=== PATIENT | female | born 2000 | race Caucasian/White ===

== ENCOUNTER 2023-11-10 16:46 | Outpatient (OUT) | payer OTHER, SELFPAY ==
[2023-11-10 17:31] LABS: HCG Quantitative <1 mIU/mL
== END 2023-11-10 16:47 | disposition home or self-care (01) ==
PROVIDERS: Visit Provider Obstetrics & Gynecology
DX: N92.6 Irregular menstruation, unspecified (principal)
CPT/HCPCS: 36415; 84702

== ENCOUNTER 2024-03-17 19:28 | Outpatient (REF) | payer OTHER, SELFPAY ==
--- OUTSIDE RECORDS SUMMARY | 2024-03-17 19:42 | XMS_ITS | CCD ---
Author Organization [facility] Care Team Providers Care Exhibit Display Representative Name Role Phone MCKEON, KALIN Unavailable Unavailable MCKEON, KALIN Unavailable Unavailable BRISTOL, ABDIFATAH E Unavailable Unavailable BRISTOL, ABDIFATAH E Unavailable Unavailable BRISTOL, ABDIFATAH E Unavailable Unavailable BRISTOL, ABDIFATAH E Unavailable Unavailable BRISTOL, ABDIFATAH E Unavailable Unavailable BRISTOL, ABDIFATAH E Unavailable Unavailable BRISTOL, ABDIFATAH E Unavailable Unavailable LILA GOMEZ Unavailable Unavailable BRISTOL, ABDIFATAH E Unavailable Unavailable BRISTOL, ABDIFATAH E Unavailable Unavailable BEST BERUMEN Unavailable Unavailable BRISTOL, ABDIFATAH E Unavailable Unavailable Asaad, Imad Unavailable MD Blanca Imyanelis Attending Provider DO Cathryn So Primary Care Provider Asaad, Imad Admitting [facility] Un[facility] Asaad, Imad Attending Unavailable [facility] Unavailable Asaad, Imad Attending Unavailable Asaad, Imad Admitting Unavailable YOSSI ., DR MEI Consulting Unavailable BRISTOL, DR GARDINER Primary Care Unavailable YOSSI ., DR MEI Admitting Unavailable YOSSI ., DR MEI Attending Unavailable JESS ., ADPHNE Attending Unavailable JESS ., DAPHNE Consulting Unavailable JESS ., DAPHNE Admitting Unavailable BRISTOL, DR GARDINER Primary Care Unavailable YOSSI ., DR MEI Consulting Unavailable YOSSI ., DR MEI Admitting Unavailable YOSSI ., DR MEI Attending Unavailable BRISTOL, DR GARDINER Primary Care Unavailable YOSSI ., DR MEI Admitting Unavailable YOSSI ., DR MEI Attending Unavailable BRISTOL, DR GARDINER Primary Care Unavailable BRISTOL, DR GARDINER Primary Care Unavailable YOSSI ., DR MEI Admitting Unavailable YOSSI ., DR MEI Attending Unavailable YOSSI ., DR MEI Consulting Unavailable BRISTOL, DR GARDINER Primary Care Unavailable YOSSI ., DR MEI Admitting Unavailable YOSSI ., DR MILLERY Attending Unavailable DAPHNE SANTIZO Admitting Unavailable DAPHNE SANTIZO Attending Unavailable CHANDU, DR GARDINER Primary Care Unavailable CHANDU, DR GARDINER Primary Care Unavailable DR HAMIDA HAGER Admitting Unavailable DR HAMIDA HAGER Attending Unavailable DR HAMIDA HAGER Consulting Unavailable Allergies Allergy Classification Reported Allergen(s) Allergy Type Date of Onset Reaction(s) Facility (3 sources) Codeine Drug Allergy 1 Unknown, Rash [facility] (2 sources) Penicillin Drug Allergy Unknown [facility] Other (4 sources) Penicillins; Translations: [Penicillins] Allergy to substance 4 [facility] (1 source) Codeine Drug Allergy 1 [facility] Repository (2 sources) Codeine Drug Allergy 4 [facility] Medications Current Medications Medication Drug Class(es) Dates Sig (Normalized) Sig (Original) buprenorphine 2 mg sublingual tablet (1 source) Partial Opioid Agonist Start: 12-15-2020 Buprenorphine Hcl (Subutex) 2 mg Tablet, Sublingual Active 4 MG SUBLINGUAL Twice daily December 15, 2020 1:00am metoclopramide 10 mg oral tablet (1 source) Dopamine-2 Receptor Antagonist Start: 12-16-2020 take 1 tablet by mouth every six hours Metoclopramide Hcl (Reglan) 10 mg tablet Active 10 MG PO Q6H 28 7 December 16, 2020 1:00am ondansetron 8 mg oral tablet (2 sources) Serotonin-3 Receptor Antagonist Start: 12-15-2020 End: 12-15-2020 take 8 mg by mouth twice daily Ondansetron Hcl Active 8 MG PO Twice daily December 15, 2020 1:00am valACYclovir 500 mg oral tablet (1 source) Herpesvirus Nucleoside Analog DNA Polymerase Inhibitor, Herpes Simplex Virus Nucleoside Analog DNA Polymerase Inhibitor, Herpes Zoster Virus Nucleoside Analog DNA Polymerase Inhibitor Start: 08-24-2017 take 500 mg by mouth once daily Valacyclovir Active 500 MG PO Daily August 24, 2017 12:00am Completed/Discontinued Medications Medication Drug Class(es) Dates Sig (Normalized) Sig (Original) hydrOXYzine hydrochloride 25 mg oral tablet (1 source) Antihistamine Start: 08-24-2017 End: 12-15-2020 take 25 mg by mouth three times daily Hydroxyzine Hcl Discontinued 25 MG PO Three times daily August 24, 2017 12:00am December 16, 2020 12:45am meclizine hydrochloride 12.5 mg oral tablet (1 source) Antiemetic Start: 08-24-2017 End: 12-15-2020 take 12.5 mg by mouth once daily Meclizine Discontinued 12.5 MG PO Daily August 24, 2017 12:00am December 16, 2020 12:45am 30/70 release 24 hr methylphenidate hydrochloride 40 mg extended release oral capsule (1 source) Central Nervous System Stimulant Start: 08-24-2017 End: 12-15-2020 take 40 mg by mouth once daily Methylphenidate Hcl Discontinued 40 MG PO Daily August 24, 2017 12:00am December 16, 2020 12:45am Tinnex (1 source) Start: 08-24-2017 End: 12-15-2020 take 1 tablet by mouth once daily Tinnex Discontinued 1 TAB PO Daily August 24, 2017 12:00am December 16, 2020 12:45am venlafaxine 37.5 mg oral tablet (1 source) Serotonin and Norepinephrine Reuptake Inhibitor Start: 08-24-2017 End: 12-15-2020 take 37.5 mg by mouth once daily Venlafaxine Discontinued 37.5 MG PO Daily August 24, 2017 12:00am December 16, 2020 12:45am Problems Active Problems Problem Classification Problem Date Documented Date Episodic/Chronic Headache, including migraine (2 sources) Cyclical vomiting, not intractable; Translations: [Migraine, unspecified, not intractable, without status migrainosus] Onset: 07-21-2017 Chronic Hepatitis (5 sources) Viral hepatitis C; Translations: [Unspecified viral hepatitis C without hepatic coma] Onset: 02-19-2023 Episodic Hepatitis (1 source) Hepatitis; Translations: [Chronic viral hepatitis C] Onset: 02-24-2023 Immunizations and screening for infectious disease (6 sources) Encounter for screening for human papillomavirus (HPV); Translations: [Encounter for screening for infections with a predominantly sexual mode of transmission] Onset: 04-08-2022 Episodic Mood disorders (2 sources) Major depressive disorder, single episode, unspecified; Translations: [Major depressive disorder, single episode, unspecified] Onset: 11-15-2017 Nausea and vomiting (6 sources) Nausea; Translations: [Nausea and vomiting] Onset: 07-18-2017 12-16-2020 Episodic Other liver diseases (1 source) Steatosis of liver; Translations: [Fatty (change of) liver, not elsewhere classified] Chronic Other liver diseases (1 source) Fatty (change of) liver, not elsewhere classified Chronic Other nutritional; endocrine; and metabolic disorders (2 sources) Obese class I; Translations: [Body mass index (BMI) 34.0-34.9, adult] Chronic Other nutritional; endocrine; and metabolic disorders (2 sources) Body mass index 30+ - obesity; Translations: [Body mass index (BMI) 35.0-35.9, adult] Chronic Other nutritional; endocrine; and metabolic disorders (2 sources) Weight loss; Translations: [Abnormal weight loss] Episodic Other screening for suspected conditions (not mental disorders or infectious disease) (4 sources) Encounter for screening for malignant neoplasm of cervix; Translations: [ENC SCREENING MALIG NEOPLASM CERV] Onset: 03-16-2023 Episodic Past or Other Problems Problem Classification Problem Date Documented Date Episodic/Chronic Abdominal pain (3 sources) Epigastric pain; Translations: [Epigastric pain] Onset: 07-18-2017 Episodic Other female genital disorders (5 sources) Other specified noninflammatory disorders of vagina; Translations: [OTH SPEC NONINFLAMMATORY D/O VAGINA] Onset: 04-11-2022 Episodic Other infections (1 source) Trichomoniasis, unspecified; Translations: [Trichomoniasis, unspecified] Onset: 09-18-2017 Episodic Other nutritional; endocrine; and metabolic disorders (3 sources) Abnormal weight loss; Translations: [Abnormal weight loss] Onset: 07-18-2017 Episodic Other upper respiratory infections (1 source) Streptococcal pharyngitis; Translations: [Streptococcal pharyngitis] Onset: 07-21-2017 Episodic Suicide and intentional self-inflicted injury (1 source) Suicidal ideations; Translations: [Suicidal ideations] Onset: 11-14-2017 Episodic Results Test Name Value Interpretation Reference Range Facility PAP ACOG PANEL 2: 21 to 29on 03-23-2023 . . Normal [facility] Comment on above: Performed By: #### [id number] #### [facility] [address] [place] [address] Dr. Vivian Govea Age Gdln ACOG Testing 21-29 Normal [facility] Comment on above: Performed By: #### [id number] #### [facility] [address] [place] [address] Dr. Vivian Govea DIAGNOSIS: Comment [facility] Comment on above: Result Comment: NEGA TIVE FOR INTRAEPITHELIAL LESION OR MALIGNANCY. Performed By: #### [id number] #### [facility] [address] [place] [address] Dr. Vivian Govea Methodology: Comment [facility] Comment on above: Result Comment: This liquid based ThinPrep(R) pap test was screened with the use of an image guided system. Performed By: #### 4 [id number] #### [facility] [address] [place] [address] Dr. Vivian Govea Note: Comment [facility] Comment on above: Result Comment: The Pap smear is a screening test designed to aid in the detection of premalignant and malignant conditions of the uterine cervix. It is not a diagnostic procedure and should not be used as the sole means of detecting cervical cancer. Both false-positive and false-negative reports do occur. . Performed By: #### 4 [id number] #### [facility] [address] [place] [address] Dr. Vivian Govea Performed by: Comment [facility] Comment on above: Result Comment: Jose L Izquierdo Auger Press Operator (ASCP) Performed By: #### 4 [id number] #### [facility] [address] [place] [address] Dr. Vivian Govea Reflex Criteria: Comment [facility] Comment on above: Result Comment: The HPV DNA reflex criteria were not met with this specimen result therefore, no HPV testing was performed. . Performed By: #### 4 [id number] #### [facility] [address] [place] [address] Dr. Vivian Govea Specimen adequacy: Comment [facility] Comment on above: Result Comment: Sati sfactory for evaluation. Endocervical and/or squamous metaplastic cells (endocervical component) are present. Performed By: #### 4 [id number] #### [facility] [address] [address] [address] Vivian Govea HCG ( test) Lesley montaño Ql (U)Ordered By: Alexis Rios on 02-24-2023 HCG ( test) Ql (U) Negative [facility] HCG,Urineon 02-24-2023 Beta HCG ( test) Ql (U) Negative Normal [facility] Comment on above: Result Comment: PERF ORMED BY: [place] [address] PATHOLOGIST SANITATION SUPERINTENDENT PROSPER BURGOS M.D. Performed By: #### U HCG #### [address] HCV genotyping ser/plas ampl ified probeOrdered By: Alexis Rios on 02-19-2023 HCV genotype OCTAVIO+probe Nom See comment . [facility] Comment on above: Test not performed. Unable to provide an HCV genotype forthis sample. The most common reason an HCV genotype cannotbe determined is due to a viral load of <1,000 IU/mL, ormore rarely, the presence of an untypable HCV genotype. HIV 1/O/2 Antigen/Antibodyon 02-19-2023 HIV Screen 4th Generation Non-Reactive Normal Non Reactive [facility] Comment on above: Order Comment: Reaso n for Exam Hepatitis C Result Comment: HIV Negative HIV-1/HIV-2 antibodies and HIV-1 p24 antigen were NOT detected. There is no laboratory evidence of HIV infection. Performed at: - [facility] [id number] Survey Director: Robin Mccormack PhD, Phone: [phone] PERFORMED BY: [place] [address] PATHOLOGIST SANITATION SUPERINTENDENT PROSPER BURGOS M.D. Performed By: #### H CV RNAQNT, HBSAG, HIV SCREEN, HBCAB, HAABT, HBSAB, HCV DUSTY #### [facility] , HIV 1 and HIV-2 antibody ass ay with HIV-1 p24 antigen detectionOrdered By: Alexis Rios on 02-19-2023 HIV 1+2 Ab+HIV1 p24 Ag IA Ql Non-Reactive Non Reactive [facility] Comment on above: HIV NegativeHIV-1/HI V-2 antibodies and HIV-1 p24 antigen were NOTdetected. There is no laboratory evidence of HIV infection.Performed at: [address] [id number] Director: Robin Mccormack PhD, Phone: [phone] Hep C Genotyping Non Reflexo n 02-19-2023 Hepatitis C Genotype Normal . [facility] Comment on above: Order Comment: Reaso n for Exam Hepatitis C Result Comment: Test not performed. Unable to provide an HCV genotype for this sample. The most common reason an HCV genotype cannot be determined is due to a viral load of <1,000 IU/mL, or more rarely, the presence of an untypable HCV genotype. Performed By: #### H CV RNAQNT, HBSAG, HIV SCREEN, HBCAB, HAABT, HBSAB, HCV DUSTY #### [facility] , Please Note: Normal . [facility] Comment on above: Order Comment: Reaso n for Exam Hepatitis C Result Comment: This test was developed and its performance characteristics determined by [facility]. It has not been cleared or approved by the U.S. Food and Drug Administration. The FDA has determined that such clearance or approval is not necessary. This test is used for clinical purposes. It should not be regarded as investigational or for research. Performed at: [address] [id number] Survey Director: Yue Hammond MD, Phone: [phone] PERFORMED BY: [place] [address] [place] [address] PATHOLOGIST SANITATION SUPERINTENDENT PROSPER BURGOS M.D. Performed By: #### H CV RNAQNT, HBSAG, HIV SCREEN, HBCAB, HAABT, HBSAB, HCV DUSTY #### [facility] , Hep C RT-PCR, Qnt (Non-Graph )on 02-19-2023 Hepatitis C Quantitation Not detected Normal . [facility] Comment on above: Order Comment: Reaso n for Exam Hepatitis C Performed By: #### H CV RNAQNT, HBSAG, HIV SCREEN, HBCAB, HAABT, HBSAB, HCV DUSTY #### [facility] , Test Information: Normal . [facility] Comment on above: Order Comment: Reaso n for Exam Hepatitis C Result Comment: The quantitative range of this assay is 15 IU/mL to 100 million IU/mL. Performed at: [facility] [id number] Survey Director: Yue Hammond MD, Phone: [phone] Performed By: #### H CV RNAQNT, HBSAG, HIV SCREEN, HBCAB, HAABT, HBSAB, HCV DUSTY #### [facility] , Hepatitis A Antibody Totalon 02-19-2023 Hepatitis A Antibody Total Negative Normal Negative [facility] Comment on above: Order Comment: Reaso n for Exam Hepatitis C Result Comment: Perf ormed at: - [facility] [address] [id number] Survey Director: Robin Mccormack PhD, Phone: [phone] Performed By: #### H CV RNAQNT, HBSAG, HIV SCREEN, HBCAB, HAABT, HBSAB, HCV DUSTY #### [facility] , Hepatitis A virus Ab [Presen ce] in Serum by ImmunoassayOrdered By: Alexis Rios on 02-19-2023 HAV Ab IA Ql (S) Negative Negative [facility] Comment on above: Performed at: [facility] [address] [id number] Director: Robin Mccormack PhD, Phone: [phone] Hepatitis B Core Antibodyon 02-19-2023 Hepatitis B Core Antibody Negative Normal Negative [facility] Comment on above: Order Comment: Reaso n for Exam Hepatitis C Performed By: #### H CV RNAQNT, HBSAG, HIV SCREEN, HBCAB, HAABT, HBSAB, HCV DUSTY #### [facility] , Hepatitis B Surface Antibody on 02-19-2023 Hepatitis B Surface Antibody Non-Reactive Normal . [facility] Comment on above: Order Comment: Reaso n for Exam Hepatitis C Result Comment: Non Reactive: Inconsistent with immunity, less than 10 mIU/mL Reactive: Consistent with immunity, greater than 9.9 mIU/mL Performed By: #### H CV RNAQNT, HBSAG, HIV SCREEN, HBCAB, HAABT, HBSAB, HCV DUSTY #### [facility] , Hepatitis B Surface Antigeno n 02-19-2023 HBsAg Screen Negative Normal Negative [facility] Comment on above: Order Comment: Reaso n for Exam Hepatitis C Performed By: #### H CV RNAQNT, HBSAG, HIV SCREEN, HBCAB, HAABT, HBSAB, HCV DUSTY #### [facility] , Hepatitis B virus surface Ag [Presence] in Serum or Plasma by ImmunoassayOrdered By: Imad Asayanelis on 02-19-2023 HBV surface Ag IA Ql Negative Negative [facility] Hepatitis C virus RNA [log u nits/volume] (viral load) in Serum or Plasma by OCTAVIO withOrdered By: Imad Asaad on 02-19-2023 HCV RNA OCTAVIO+probe [Log units/Vol] Not detected . [facility] No Panel InformationOrdered By: Imad Asaad on 02-19-2023 Hepatitis B Core Total Antibody Negative Negative [facility] Hepatitis C RNA (PCR) Interpret See comment . [facility] Comment on above: The quantitative ran ge of this assay is 15 IU/mL to 100million IU/mL.Performed at: [facility] General Blood[address] [id number] Director: Yue Hammond MD, Phone: [phone] Herpes Simplex Virus Note 2 See comment . [facility] Comment on above: This test was develo ped and its performance characteristicsdetermined by [facility]. It has not been cleared or approvedby the U.S. Food and Drug Administration.The FDA has determined that such clearance or approval isnot necessary. This test is used for clinical purposes. Itshould not be regarded as investigational or for research.Performed at: [facility] General [address] [id number] Director: Yue Hammond MD, Phone: [phone] Serum hepatitis B virus surf daisy antibody detectionOrdered By: Alexis Rios on 02-19-2023 HBV surface Ab Ql (S) Non-Reactive . [facility] Comment on above: Non Reactive: Incons istent with immunity, less than 10 mIU/mL Reactive: Consistent with immunity, greater than 9.9 mIU/mL US liveron 02-19-[address] [place] [address] Ultrasound Report Signed Patient: Sabra Wills MR#: [id number] : 2000 Acct:[id number] Age/Sex: 22 / F ADM Date: 02/19/23 Loc: Room: Type: [facility] Attending Dr: Alexis Rios MD Ordering Provider: Alexis Rios MD Date of Service: 02/19/23 US/US liver: Hepatitis C Copies to: Alexis Rios MD LIMITED ABDOMINAL ULTRASOUND: CLINICAL HISTORY: Hepatitis C. COMPARISON: None TECHNIQUE: Grayscale and color Doppler images of the right upper quadrant organs were obtained. FINDINGS: Pancreas: Not visualized. Liver: No focal mass or intrahepatic bile duct dilatation. Hepatopedal flow is seen within the portal vein. Gallbladder: Unremarkable. CBD: 2.8 mm. US/US liver IMPRESSION: NO FOCAL MASS OR ACUTE PROCESS.. Impression dictated by: Venkata Benavides Jr., DEderOEder02/19/2023 11:18 AM Dictation Location: [place] [address] Tech: Cate Ammy Transcribed By: BIN 02/19/23 1118 Dictated By: Venkata Benavides Jr, DO 02/19/23 1117 Signed By: 02/19/23 1118 Normal [facility] CHLAMYDIA/GONOCOCCUS OCTAVIO (SW AB/URINE/PAPon 12-22-2022 Chlamydia trachomatis, OCTAVIO Negative Normal Negative [facility] Comment on above: Performed By: #### C T/NGNA #### [facility] [address] [address] [address] Vivian Govea Neisseria gonorrhoeae, OCTAVIO Negative Normal Negative [facility] Comment on above: Performed By: #### C T/NGNA #### [facility] [address] [place] [address] Dr. Vivian Govea VAGINITIS/VAGINOSIS DNA PROB Lenard 12-20-2022 Kaylin species Negative Normal Negative [facility] Comment on above: Performed By: #### V AGINT #### [facility] [address] [place] [address] Dr. Vivian Govea Gardnerella vaginalis Positive Abnormal Negative [facility] Comment on above: Performed By: #### V AGINT #### [facility] [address] [place] [address] Dr. Vivian Govea Trichomonas vaginalis Negative Normal Negative [facility] Comment on above: Performed By: #### V AGINT #### [facility] [address] [place] [address] Dr. Vivian Govea CHLAMYDIA/GONOCOCCUS OCTAVIO (SW AB/URINE/PAPon 07-28-2022 Chlamydia trachomatis, OCTAVIO Negative Normal Negative [facility] Comment on above: Performed By: #### C T/NGNA #### [facility] [address] [place] [address] Dr. Vivian Govea Neisseria gonorrhoeae, OCTAVIO Negative Normal Negative [facility] Comment on above: Performed By: #### C T/NGNA #### [facility] [address] [place] [address] Dr. Vivian Govea VAGINITIS/VAGINOSIS DNA PROB Lenard 07-27-2022 Kaylin species Negative Normal Negative [facility] Comment on above: Performed By: #### V AGINT #### [facility] [address] [place] [address] Dr. Vivian Govea Gardnerella vaginalis Positive Abnormal Negative [facility] Comment on above: Performed By: #### V AGINT #### [facility] [address] [place] [address] Dr. Vivian Govea Trichomonas vaginalis Negative Normal Negative [facility] Comment on above: Performed By: #### V AGINT #### [facility] [address] [place] [address] Dr. Vivian Govea VAGINITIS/VAGINOSIS DNA PROB [place] 05-09-2022 Kaylin species Negative Normal Negative [facility] Comment on above: Performed By: #### V AGINT #### [facility] [address] [place] [address] Dr. Vivian Govea Gardnerella vaginalis Positive Abnormal Negative [facility] Comment on above: Performed By: #### V AGINT #### [facility] [address] [place] [address] Dr. Vivian Govea Trichomonas vaginalis Negative Normal Negative [facility] Comment on above: Performed By: #### V AGINT #### [facility] [address] [place] [address] Dr. Vivian Govea CHLAMYDIA/GONOCOCCUS OCTAVIO ( AB/URINE/PAPon 04-11-2022 Chlamydia trachomatis, OCTAVIO Negative Normal Negative [facility] Comment on above: Performed By: #### C T/NGNA #### [facility] [address] [place] [address] Dr. Vivian Govea Neisseria gonorrhoeae, OCTAVIO Negative Normal Negative [facility] Comment on above: Performed By: #### C T/NGNA #### [facility] [address] [place] [address] Dr. Vivian Govea VAGINITIS/VAGINOSIS DNA PROB Lenard 04-10-2022 Kaylin species Negative Normal Negative [facility] Comment on above: Performed By: #### V AGINT #### [facility] [address] [place] [address] Dr. Vivian Govea Gardnerella vaginalis Negative Normal Negative [facility] Comment on above: Performed By: #### V AGINT #### [facility] [address] [place] [address] Dr. Vivian Govea Trichomonas vaginalis Positive Abnormal Negative [facility] Comment on above: Performed By: #### V AGINT #### [facility] [address] [place] [address] Dr. Vivian Govea CBC with Diffon 11-16-2017 Abs. Basophil 0.10 k/uL Normal 0.0-0.2 [facility] Comment on above: Result Comment: Perf ormed at [facility] [address] [place] [address] Performed By: #### C DP, CP ####[facility] [place] [address] Abs.Neutrophil (Seg) 3.90 k/uL Normal 1.3-9.1 [facility] Comment on above: Performed By: #### C DP, CP ####[facility] [place] [address] Basophils/100 WBC Auto (Bld) 1 % Normal 0-2 [facility] Comment on above: Performed By: #### C DP, CP ####[facility] [place] [address] Eosinophils 0.30 10*3/uL Normal 0.0-0.4 [facility] Comment on above: Performed By: #### C DP, CP ####[facility] [place] [address] Eosinophils/100 leukocytes 4 % Normal 0-4 [facility] Comment on above: Performed By: #### C DP, CP ####[facility] [place] [address] Erythrocyte distribution width Auto Ratio (RBC) 13.9 % Normal 11.5-14.9 [facility] Comment on above: Performed By: #### C DP, CP ####[facility] [place] [address] Erythrocytes (RBC) 4.72 10*6/uL Normal 4.0-5.2 [facility] Comment on above: Performed By: #### C DP, CP ####[facility] [place] [address] Hematocrit (HCT) 39.5 % Normal 36-46 [facility] Comment on above: Performed By: #### C DP, CP ####[facility] [place] [address] Hemoglobin mass conc (Bld) 13.2 g/dL Normal 12.0-16.0 [facility] Comment on above: Performed By: #### C DP, CP ####[facility] [place] [address] Lymphocytes 1.90 10*3/uL Normal 1.2-5.2 [facility] Comment on above: Performed By: #### C DP, CP ####[facility] [place] [address] Lymphocytes/100 leukocytes 29 % Normal 25-45 [facility] Comment on above: Performed By: #### C DP, CP ####[facility] [place] [address]12 MCH 27.9 pg Normal 25-35 [facility] Comment on above: Performed By: #### C DP, CP ####[facility] [place] [address] MCHC mass conc (RBC) 33.4 g/dL Normal 31-37 [facility] Comment on above: Performed By: #### C DP, CP ####[facility] [place] [address] MCV 83.6 fL Normal 78-102 [facility] Comment on above: Performed By: #### C DP, CP ####[facility] [place] [address] Monocytes 0.60 10*3/uL Normal 0.1-1.3 [facility] Comment on above: Performed By: #### C DP, CP ####[facility] [place] [address] Monocytes/100 leukocytes 9 % High 2-8 [facility] Comment on above: Performed By: #### C DP, CP ####[facility] [place] [address] Neutrophil (Seg) 57 % Normal 34-64 [facility] Comment on above: Performed By: #### C DP, CP ####[facility] [place] [address] Platelet mean volume (PMV) 8.0 fL Normal 6.0-12.0 [facility] Comment on above: Performed By: #### C DP, CP ####[facility] [place] [address] Platelets 242 10*3/uL Normal 150-450 [facility] Comment on above: Performed By: #### C DP, CP ####[facility] [place] [address] WBC (Leukocytes) 6.8 10*3/uL Normal 4.5-13.5 [facility] Comment on above: Performed By: #### C DP, CP ####[facility] [place] [address] Auto Diff Performed NOT REPORTED Normal [facility] Comment on above: Performed By: #### C DP, CP ####[facility] [place] [address] Erythrocyte morphology NOT REPORTED Normal [facility] Comment on above: Performed By: #### C DP, CP ####[facility] [place] [address] Granulocytes/100 WBC (Bld) NOT REPORTED Normal 0.00-0.30 [facility] Comment on above: Performed By: #### C DP, CP ####[facility] [facility] [place] [address] Immature granulocytes #/vol (Bld) NOT REPORTED Normal 0 [facility] Comment on above: Performed By: #### C DP, CP ####[facility] [facility] [place] [address] Platelets NOT REPORTED Normal [facility] Comment on above: Performed By: #### C DP, CP ####[facility] [place] [address] WBC Morphology NOT REPORTED Normal [facility] Comment on above: Performed By: #### C DP, CP ####[place] [address] [facility] [place] [address] Comp Metabolic Profon 2016 (cont.) Normal [facility] Comment on above: Result Comment: Aver age GFR for <20 years old not available.Chronic Kidney Disease: <60 mL/min/1.73sq mKidney failure: <15 mL/min/1.73sq meGFR calculated using average adult body mass. Additional eGFR calculator available at:http://www.[employer].Undertone/multiple_crcl_2012.htmPerformed at [facility] [address] [place] [address] Performed By: #### C DP, CP ####[facility] [place] [address] Alanine aminotransferase (ALT) 44 U/L High 5-33 [facility] Comment on above: Performed By: #### C DP, CP ####[facility] [facility] [address] Albumin 3.9 g/dL Normal 3.5-5.2 [facility] Comment on above: Performed By: #### C DP, CP ####[facility] [place] [address] Alkaline Phos 68 U/L Normal 35-104 [facility] Comment on above: Performed By: #### C DP, CP ####[facility] [place] [address] Anion gap 11 mmol/L Normal 9-17 [facility] Comment on above: Performed By: #### C DP, CP ####[facility] [place] [address].[place] [address] Aspartate aminotransferase (AST) 37 U/L High <32 [facility] Comment on above: Performed By: #### C DP, CP ####[facility] [place] [address].[place] [address] Bilirubin Ql (U) 0.39 mg/dL Normal 0.3-1.2 [facility] Comment on above: Performed By: #### C DP, CP ####[facility] [place] [address].[place] [address] Calcium 9.1 mg/dL Normal 8.6-10.4 [facility] Comment on above: Performed By: #### C DP, CP ####[facility] [facility] [place] [address] Chloride 103 mmol/L Normal 98-107 [facility] Comment on above: Performed By: #### C DP, CP ####[facility] [place] [address] CO2 26 mmol/L Normal 20-31 [facility] Comment on above: Performed By: #### C DP, CP ####[facility] [place], [place] [address]e [place] [address] Creatinine 0.54 mg/dL Normal 0.50-0.90 [facility] Comment on above: Performed By: #### C DP, CP ####[facility] [place] [address].[place] [address] eGFR (non-black) Pediatric GFR requir es additional information. Refer to NKDEP website for Normal >60 [facility] Comment on above: Result Comment: calc ulator. Performed By: #### C DP, CP ####[facility] [place] [address] Glucose mass conc 91 mg/dL Normal 70-99 [facility] Comment on above: Performed By: #### C DP, CP ####[facility] [place] [address] Potassium molar conc 4.2 mmol/L Normal 3.7-5.3 [facility] Comment on above: Performed By: #### C DP, CP ####[facility] [place] [address].[place] [address] Protein 6.9 g/dL Normal 6.4-8.3 [facility] Comment on above: Performed By: #### C DP, CP ####[address] [place] [address] Sodium 140 mmol/L Normal 135-144 [facility] Comment on above: Performed By: #### C DP, CP ####[facility] [place] [address].[place] [address] Urea nitrogen 9 mg/dL Normal 6-20 [facility] Comment on above: Performed By: #### C DP, CP ####[address] [address] Albumin/Globulin Ratio NOT REPORTED Normal 1.0-2.5 [facility] Comment on above: Performed By: #### C DP, CP ####[place] [address] [facility] [address] BUN/CRE Ratio NOT REPORTED Normal 9-20 [facility] Comment on above: Performed By: #### C DP, CP ####[facility] [facility] [address] eGFR (non-black) NOT REPORTED Normal >60 [facility] Comment on above: Performed By: #### C DP, CP ####[facility] [facility] [place] [address] Staging: NOT REPORTED Normal [facility] Comment on above: Performed By: #### C DP, CP ####[facility] [facility] [place] [address] ED Noteon 11-15-2017 HIM IP Note OR Product Manager [employer] Normal [facility] HIM IP Note OR Product Manager Financial Services Normal [facility] Basic Metabolic Profon 11-14 (cont.) Normal [facility] Comment on above: Result Comment: Aver age GFR for <20 years old not available.Chronic Kidney Disease: <60 mL/min/1.73sq mKidney failure: <15 mL/min/1.73sq meGFR calculated using average adult body mass. Additional eGFR calculator available at:http://www.[employer].Undertone/multiple_crcl_2012.htm Performed By: #### C BC, DAPHNE, CP, LIP, TSH, HCG ####[address] , [place] [id number] Anion gap 11 mmol/L Normal 9-17 [facility] Comment on above: Performed By: #### C BC, DAPHNE, CP, LIP, TSH, HCG ####[address] , [place] [id number] BUN/CRE Ratio 18 Normal 9-20 [facility] Comment on above: Performed By: #### C BC, DAPHNE, CP, LIP, TSH, HCG ####[address] [place] [address] Calcium 9.2 mg/dL Normal 8.6-10.4 [facility] Comment on above: Performed By: #### C BC, DAPHNE, CP, LIP, TSH, HCG ####[address] [place] [address] Chloride 101 mmol/L Normal 98-107 [facility] Comment on above: Performed By: #### C BC, DAPHNE, CP, LIP, TSH, HCG ####[address] [place] [address] CO2 26 mmol/L Normal 20-31 [facility] Comment on above: Performed By: #### C BC, DAPHNE, CP, LIP, TSH, HCG ####[address] [place] [address] Creatinine 0.44 mg/dL Low 0.50-0.90 [facility] Comment on above: Performed By: #### C BC, DAPHNE, CP, LIP, TSH, HCG ####[address] [place] [address] eGFR (non-black) Pediatric GFR requir es additional information. Refer to NKDEP website for Normal >60 [facility] Comment on above: Result Comment: calc ulator. Performed By: #### C BC, DAPHNE, CP, LIP, TSH, HCG ####[address] [place] [address] Glucose mass conc 93 mg/dL Normal 70-99 [facility] Comment on above: Performed By: #### C BC, DAPHNE, CP, LIP, TSH, HCG ####[address] [place] [address] Potassium molar conc 4.2 mmol/L Normal 3.7-5.3 [facility] Comment on above: Performed By: #### C BC, DAPHNE, CP, LIP, TSH, HCG ####[address] [place] [address] Sodium 138 mmol/L Normal 135-144 [facility] Comment on above: Performed By: #### C BC, DAPHNE, CP, LIP, TSH, HCG ####[address] [place] [address] Staging: Normal [facility] Comment on above: Result Comment: Stag e 1: Some kidney damage normal GFRStage 2: Mild kidney damage GFR 60-89Stage 3: Moderate kidney damage GFR 30-59Stage 4: Severe kidney damage GFR 15-29Stage 5: Severe kidney damage GFR <15ESRD - chronic treatment by dialysis or transplantPerformed at [address] [place] [address] Performed By: #### C BC, DAPHNE, CP, LIP, TSH, HCG ####[address] [place] [address] Urea nitrogen 8 mg/dL Normal 6-20 [facility] Comment on above: Performed By: #### C BC, DAPHNE, CP, LIP, TSH, HCG ####[address] [place] [address] eGFR (non-black) NOT REPORTED Normal >60 [facility] Comment on above: Performed By: #### C BC, DAPHNE, CP, LIP, TSH, HCG ####[address] [place] [address] CBC with Diffon 11-14-2017 Abs. Basophil 0.10 k/uL Normal 0.0-0.2 [facility] Comment on above: Result Comment: Perf ormed at [address] [place] [address] Performed By: #### C BC, DAPHNE, CP, LIP, TSH, HCG ####[address] [place] [address] Abs.Neutrophil (Seg) 6.40 k/uL Normal 1.8-8.0 [facility] Comment on above: Performed By: #### C BC, DAPHNE, CP, LIP, TSH, HCG ####[address] , [place] [address] Basophils/100 WBC Auto (Bld) 1 % Normal 0-2 [facility] Comment on above: Performed By: #### C BC, DAPHNE, CP, LIP, TSH, HCG ####[address] , [facility] Eosinophils 0.30 10*3/uL Normal 0.0-0.4 [facility] Comment on above: Performed By: #### C BC, DAPHNE, CP, LIP, TSH, HCG ####[address] , [place] [address] Eosinophils/100 leukocytes 3 % Normal 0-8 [facility] Comment on above: Performed By: #### C BC, DAPHNE, CP, LIP, TSH, HCG ####[address] , [place] [address] Erythrocyte distribution width Auto Ratio (RBC) 14.2 % Normal 12.1-15.2 [facility] Comment on above: Performed By: #### C BC, DAPHNE, CP, LIP, TSH, HCG ####[address] , [facility] Erythrocytes (RBC) 4.88 10*6/uL Normal 4.0-5.2 [facility] Comment on above: Performed By: #### C BC, DAPHNE, CP, LIP, TSH, HCG ####[address] , [facility] Hematocrit (HCT) 40.5 % Normal 36-46 [facility] Comment on above: Performed By: #### C BC, DAPHNE, CP, LIP, TSH, HCG ####[address] , [facility] Hemoglobin mass conc (Bld) 13.3 g/dL Normal 12.0-16.0 [facility] Comment on above: Performed By: #### C BC, DAPHNE, CP, LIP, TSH, HCG ####[address] [place] [address] Lymphocytes 2.00 10*3/uL Normal 1.2-5.2 [facility] Comment on above: Performed By: #### C BC, DAPHNE, CP, LIP, TSH, HCG ####[address] , [facility] Lymphocytes/100 leukocytes 21 % Low 25-45 [facility] Comment on above: Performed By: #### C BC, DAPHNE, CP, LIP, TSH, HCG ####[address] , [facility] MCH 27.4 pg Normal 25-35 [facility] Comment on above: Performed By: #### C BC, DAPHNE, CP, LIP, TSH, HCG ####[address] , [facility] MCHC mass conc (RBC) 33.0 g/dL Normal 31-37 [facility] Comment on above: Performed By: #### C BC, DAPHNE, CP, LIP, TSH, HCG ####[address] [place] [address] MCV 83.0 fL Normal 78-102 [facility] Comment on above: Performed By: #### C BC, DAPHNE, CP, LIP, TSH, HCG ####[address] [place] [address] Monocytes 0.50 10*3/uL Normal 0.0-1.0 [facility] Comment on above: Performed By: #### C BC, DAPHNE, CP, LIP, TSH, HCG ####[address] [place] [address] Monocytes/100 leukocytes 6 % Normal 0-12 [facility] Comment on above: Performed By: #### C BC, DAPHNE, CP, LIP, TSH, HCG ####[address] [place] [address] Neutrophil (Seg) 69 % High 34-64 [facility] Comment on above: Performed By: #### C BC, DAPHNE, CP, LIP, TSH, HCG ####[address] [place] [address] Platelet mean volume (PMV) 8.1 fL Normal 6.0-12.0 [facility] Comment on above: Performed By: #### C BC, DAPHNE, CP, LIP, TSH, HCG ####[address] [place] [address] Platelets 270 10*3/uL Normal 140-450 [facility] Comment on above: Performed By: #### C BC, DAPHNE, CP, LIP, TSH, HCG ####[address] , [facility] WBC (Leukocytes) 9.3 10*3/uL Normal 4.5-13.5 [facility] Comment on above: Performed By: #### C BC, DAPHNE, CP, LIP, TSH, HCG ####[address] [place] [address] Auto Diff Performed NOT REPORTED Normal [facility] Comment on above: Performed By: #### C BC, DAPHNE, CP, LIP, TSH, HCG ####[address] , [facility] Erythrocyte morphology NOT REPORTED Normal [facility] Comment on above: Performed By: #### C BC, DAPHNE, CP, LIP, TSH, HCG ####[address] [place] [address] Granulocytes/100 WBC (Bld) NOT REPORTED Normal 0.00-0.30 [facility] Comment on above: Performed By: #### C BC, DAPHNE, CP, LIP, TSH, HCG ####[address] [place] [address] Immature granulocytes #/vol (Bld) NOT REPORTED Normal 0 [facility] Comment on above: Performed By: #### C BC, DAPHNE, CP, LIP, TSH, HCG ####[address] [place] [address] Platelets NOT REPORTED Normal [facility] Comment on above: Performed By: #### C BC, DAPHNE, CP, LIP, TSH, HCG ####[address] [place] [address] WBC Morphology NOT REPORTED Normal [facility] Comment on above: Performed By: #### C BC, DAPHNE, CP, LIP, TSH, HCG ####[address] [place] [address] Drug Scr, Abuse, Uron 2016 Amphetamine(s),Ur Negative Normal NEG [facility] Comment on above: Performed By: #### C BC, DAPHNE, CP, LIP, TSH, HCG ####[address] [place] [address] Barbiturate(s),Ur Negative Normal NEG [facility] Comment on above: Performed By: #### C BC, DAPHNE, CP, LIP, TSH, HCG ####[address] [place] [address] Base excess Negative Normal NEG [facility] Comment on above: Performed By: #### C BC, DAPHNE, CP, LIP, TSH, HCG ####[address] [place] [address] Benzodiazepine(s) Positive Abnormal NEG [facility] Comment on above: Performed By: #### C BC, DAPHNE, CP, LIP, TSH, HCG ####[address] [place] [address] Buprenorphrine, Ur Negative Normal NEG [facility] Comment on above: Result Comment: Perf ormed at [address] [place] [address] Performed By: #### C BC, DAPHNE, CP, LIP, TSH, HCG ####[address] [place] [address] Cannabinoid(s),Ur Positive Abnormal NEG [facility] Comment on above: Performed By: #### C BC, DAPHNE, CP, LIP, TSH, HCG ####[address] [place] [address] Methamphetamine, Ur Negative Normal NEG [facility] Comment on above: Performed By: #### C BC, DAPHNE, CP, LIP, TSH, HCG ####[address] [place] [address] Opiate(s), Ur Negative Normal NEG [facility] Comment on above: Performed By: #### C BC, DAPHNE, CP, LIP, TSH, HCG ####[address] [place] [address] Oxycodone, Urine Negative Normal [facility] Comment on above: Performed By: #### C BC, DAPHNE, CP, LIP, TSH, HCG ####[address] [place] [address] Phencyclidine, Ur Negative Normal NEG [facility] Comment on above: Performed By: #### C BC, DAPHNE, CP, LIP, TSH, HCG ####[address] [place] [address] Propoxyphene,Urine Negative Normal NEG [facility] Comment on above: Performed By: #### C BC, DAPHNE, CP, LIP, TSH, HCG ####[address] [place] [address] Urine, methadone presence Negative Normal NEG [facility] Comment on above: Performed By: #### C BC, DAPHNE, CP, LIP, TSH, HCG ####[address] [place], [place] [address] Urine, tricyclic antidepressants Negative Normal NEG [facility] Comment on above: Result Comment: Drug screen results are to be used for medical purposes only. All positive results are unconfirmed. Testing for employment or legal uses should be sent to a reference laboratory for confirmation. Performed By: #### C BC, DAPHNE, CP, LIP, TSH, HCG ####[address] [place], [place] [address] Interpretive Info NOT REPORTED Normal [facility] Comment on above: Performed By: #### C BC, DAPHNE, CP, LIP, TSH, HCG ####[address] [place] [address] MDMA, Urine NOT REPORTED Normal NEG [facility] Comment on above: Performed By: #### C BC, DAPHNE, CP, LIP, TSH, HCG ####[address] [place] [id number] ED Noteon 11-14-2017 HIM IP Note OR Product Manager Financial Services Normal [facility] HIM IP Note OR Product Manager Financial Services [facility] HIM IP Note OR Product Manager Financial Services Normal [facility] HIM IP Note OR Product Manager Financial Services [facility] ED Provider Noteon 7 HIM IP Note OR Product Manager Financial Services Normal [facility] HCG, ,Urineon 11-14 HCG.beta subunit ( test) Ql (U) Negative Normal NEG [facility] Comment on above: Result Comment: Perf ormed at [address] [place] [address] [phone] Performed By: #### C BC, DAPHNE, CP, LIP, TSH, HCG ####[address] [place] [address] Progress Noteon 11-14-2017 HIM IP Note OR Product Manager Financial Services [facility] Tox Scr, Bld, EDon 7 Toxic Tricyclic Sc,Bl Negative Normal NEG [facility] Comment on above: Result Comment: Perf ormed at [facility] [address] [facility], [place] [address] [phone] Performed By: #### C BC, DAPHNE, CP, LIP, TSH, HCG ####[address] [place] [address] Acetaminophen mass conc <10 Low 10-30 [facility] Comment on above: Result Comment: Perf ormed at [address] [place] [address] Performed By: #### C BC, DAPHNE, CP, LIP, TSH, HCG ####[address] [place] [address] Salicylate <1 Low 3-10 [facility] Comment on above: Result Comment: Perf ormed at [address] [place] [address] Performed By: #### C BC, DAPHNE, CP, LIP, TSH, HCG ####[address] [place] [address] Ethanol mg/dL Normal <10 [facility] Comment on above: Result Comment: Perf ormed at [address] [place] [address] Performed By: #### C BC, DAPHNE, CP, LIP, TSH, HCG ####[address] [place] [address] Ethanol percent <0.010 Normal [facility] Comment on above: Result Comment: Perf ormed at [address] [place] [address] Performed By: #### C BC, DAPHNE, CP, LIP, TSH, HCG ####[address] [place] [address] Group A Strep DNAon 09-20-20 17 Group A Strep DNA Specimen Description .THROAT SWAB Performed at [address] [place] [address] Special Requests NOT REPORTEDDirect Exam Negative: Specimen negative for Streptococcus pyogenes by DNA amplification. Performed at [address] [id number] [phone] Report Status FINAL 09/19/2017 [facility] Comment on above: Performed By: #### C BC, DAPHNE, CP, LIP, TSH, HCG ####[address] [place] [address] Cult,Urineon 09-19-2017 Cult,Urine Specimen Description .URINE Performed at [address] [place] [address] Special Requests .CLEAN CATCH URINE Performed at [address] [place] [address] Culture NO SIGNIFICANT GROWTH Performed at [address] [address] Report Status FINAL 09/19/2017 [facility] Comment on above: Performed By: #### C BC, DAPHNE, CP, LIP, TSH, HCG ####[address] [place] [address] CBC with Diffon 09-18-2017 Abs. Basophil 0.00 k/uL Normal 0.0-0.2 [facility] Comment on above: Result Comment: Perf ormed at [address] [place] [address] Performed By: #### C BC, DAPHNE, CP, LIP, TSH, HCG ####[address] [place] [address] Abs.Neutrophil (Seg) 10.00 k/uL High 1.8-8.0 [facility] Comment on above: Performed By: #### C BC, DAPHNE, CP, LIP, TSH, HCG ####[address] [place] [address] Basophils/100 WBC Auto (Bld) 0 % Normal [facility] Comment on above: Performed By: #### C BC, DAPHNE, CP, LIP, TSH, HCG ####[address] , [place] [address] Eosinophils 0.10 10*3/uL Normal 0.0-0.4 [facility] Comment on above: Performed By: #### C BC, DAPHNE, CP, LIP, TSH, HCG ####[address] , [place] [address] Eosinophils/100 leukocytes 1 % Normal [facility] Comment on above: Performed By: #### C BC, DAPHNE, CP, LIP, TSH, HCG ####[address] , [place] [address] Erythrocyte distribution width Auto Ratio (RBC) 13.2 % Normal 12.1-15.2 [facility] Comment on above: Performed By: #### C BC, DAPHNE, CP, LIP, TSH, HCG ####[address] , [place] [address] Erythrocytes (RBC) 4.86 10*6/uL Normal 4.0-5.2 [facility] Comment on above: Performed By: #### C BC, DAPHNE, CP, LIP, TSH, HCG ####[address] , [place] [address] Hematocrit (HCT) 39.7 % Normal 36-46 [facility] Comment on above: Performed By: #### C BC, DAPHNE, CP, LIP, TSH, HCG ####[address] , [place] [address] Hemoglobin mass conc (Bld) 13.2 g/dL Normal 12.0-16.0 [facility] Comment on above: Performed By: #### C BC, DAPHNE, CP, LIP, TSH, HCG ####[address] , [facility] Lymphocytes 1.60 10*3/uL Normal 1.2-5.2 [facility] Comment on above: Performed By: #### C BC, DAPHNE, CP, LIP, TSH, HCG ####[address] , [place] [address] Lymphocytes/100 leukocytes 13 % Normal [facility] Comment on above: Performed By: #### C BC, DAPHNE, CP, LIP, TSH, HCG ####[address] , [place] [address] MCH 27.2 pg Normal 25-35 [facility] Comment on above: Performed By: #### C BC, DAPHNE, CP, LIP, TSH, HCG ####[address] , [place] [address] MCHC mass conc (RBC) 33.3 g/dL Normal 31-37 [facility] Comment on above: Performed By: #### C BC, DAPHNE, CP, LIP, TSH, HCG ####[address] , [place] [address] MCV 81.7 fL Normal 78-102 [facility] Comment on above: Performed By: #### C BC, DAPHNE, CP, LIP, TSH, HCG ####[address] , [place] [facility] [facility] Monocytes 0.50 10*3/uL Normal 0.2-0.8 [facility] Comment on above: Performed By: #### C BC, DAPHNE, CP, LIP, TSH, HCG ####[address] , [place] [address] Monocytes/100 leukocytes 4 % Normal [facility] Comment on above: Performed By: #### C BC, DAPHNE, CP, LIP, TSH, HCG ####[address] , [facility] Neutrophil (Seg) 82 % Normal [facility] Comment on above: Performed By: #### C BC, DAPHNE, CP, LIP, TSH, HCG ####[address] [place] [address] Platelet mean volume (PMV) 8.2 fL Normal 6.0-12.0 [facility] Comment on above: Performed By: #### C BC, DAPHNE, CP, LIP, TSH, HCG ####[address] [place] [address] Platelets 302 10*3/uL Normal 140-450 [facility] Comment on above: Performed By: #### C BC, DAPHNE, CP, LIP, TSH, HCG ####[address] , [facility] WBC (Leukocytes) 12.2 10*3/uL Normal 4.5-13.5 [facility] Comment on above: Performed By: #### C BC, DAPHNE, CP, LIP, TSH, HCG ####[address] , [facility] Auto Diff Performed NOT REPORTED Normal [facility] Comment on above: Performed By: #### C BC, DAPHNE, CP, LIP, TSH, HCG ####[address] [place] [address] Erythrocyte morphology NOT REPORTED Normal [facility] Comment on above: Performed By: #### C BC, DAPHNE, CP, LIP, TSH, HCG ####[address] , [facility] Granulocytes/100 WBC (Bld) NOT REPORTED Normal 0.00-0.30 [facility] Comment on above: Performed By: #### C BC, DAPHNE, CP, LIP, TSH, HCG ####[address] [place] [address] Immature granulocytes #/vol (Bld) NOT REPORTED Normal 0 [facility] Comment on above: Performed By: #### C BC, DAPHNE, CP, LIP, TSH, HCG ####[address] [place] [address] Platelets NOT REPORTED Normal [facility] Comment on above: Performed By: #### C BC, DAPHNE, CP, LIP, TSH, HCG ####[address] [place] [address] WBC Morphology NOT REPORTED Normal [facility] Comment on above: Performed By: #### C BC, DAPHNE, CP, LIP, TSH, HCG ####[facility] [place] [address] CT HEAD WO CONTRASTon 2016 CT HEAD WO CONTRAST FINAL REPORTEXAM: CT HEAD WO CONTRASTHISTORY: headache TECHNIQUE: Spiral multi slice image acquisition through the brain without contrast. PRIORS: None.FINDINGS: The ventricles and sulci are normal in size and symmetric. The basal cisterns are maintained. The cerebellum and brainstem are unremarkable. There is no evidence of intracranial hemorrhage, mass or edema. The calvarium is intact. The orbital structures are maintained. The paranasal sinuses are free of fluid. IMPRESSION: Impression: Normal noncontrast CT scan of the brain. No evidence of intracranial hemorrhage, mass or edema. Interpreted by:KRISTY Kiserigned by:Jaime Noble MD09/18/17Final result Normal [facility] Comp Metabolic Profon 2016 (cont.) Normal [facility] Comment on above: Result Comment: Aver age GFR for <20 years old not available.Chronic Kidney Disease: <60 mL/min/1.73sq mKidney failure: <15 mL/min/1.73sq meGFR calculated using average adult body mass. Additional eGFR calculator available at:http://[email or web address].com/multiple_crcl_2012.htm Performed By: #### C BC, DAPHNE, CP, LIP, TSH, HCG ####[address] [place] [address] Alanine aminotransferase (ALT) 11 U/L Normal 5-33 [facility] Comment on above: Performed By: #### C BC, DAPHNE, CP, LIP, TSH, HCG ####[address] [place] [address] Albumin 4.1 g/dL Normal 3.5-5.2 [facility] Comment on above: Performed By: #### C BC, DAPHNE, CP, LIP, TSH, HCG ####[address] [place] [address] Albumin/Globulin Ratio 1.1 {ratio} Normal 1.0-2.5 [facility] Comment on above: Performed By: #### C BC, DAPHNE, CP, LIP, TSH, HCG ####[address] [place] [address] Alkaline Phos 87 U/L Normal 35-104 [facility] Comment on above: Performed By: #### C BC, DAPHNE, CP, LIP, TSH, HCG ####[address] [place] [address] Anion gap 11 mmol/L Normal 9-17 [facility] Comment on above: Performed By: #### C BC, DAPHNE, CP, LIP, TSH, HCG ####[address] [place] [address] Aspartate aminotransferase (AST) 13 U/L Normal <32 [facility] Comment on above: Performed By: #### C BC, DAPHNE, CP, LIP, TSH, HCG ####[address] [place] [address] Bilirubin Ql (U) 0.26 mg/dL Low 0.3-1.2 [facility] Comment on above: Performed By: #### C BC, ADPHNE, CP, LIP, TSH, HCG ####[address] [place] [address] BUN/CRE Ratio 10 Normal 9-20 [facility] Comment on above: Performed By: #### C BC, DAPHNE, CP, LIP, TSH, HCG ####[address] [place] [address] Calcium 9.1 mg/dL Normal 8.6-10.4 [facility] Comment on above: Performed By: #### C BC, DAPHNE, CP, LIP, TSH, HCG ####[address] [place] [address] Chloride 101 mmol/L Normal 98-107 [facility] Comment on above: Performed By: #### C BC, DAPHNE, CP, LIP, TSH, HCG ####[address] [place] [address] CO2 27 mmol/L Normal 20-31 [facility] Comment on above: Performed By: #### C BC, DAPHNE, CP, LIP, TSH, HCG ####[address] [place] [address] Creatinine 0.58 mg/dL Normal 0.50-0.90 [facility] Comment on above: Performed By: #### C BC, DAPHNE, CP, LIP, TSH, HCG ####[address] [place] [address] eGFR (non-black) Pediatric GFR requir es additional information. Refer to NKDEP website for Normal >60 [facility] Comment on above: Result Comment: calc ulator. Performed By: #### C BC, DAPHNE, CP, LIP, TSH, HCG ####[address] [place] [address] Glucose mass conc 83 mg/dL Normal 70-99 [facility] Comment on above: Performed By: #### C BC, DAPHNE, CP, LIP, TSH, HCG ####[address] [place] [address] Potassium molar conc 3.7 mmol/L Normal 3.7-5.3 [facility] Comment on above: Performed By: #### C BC, DAPHNE, CP, LIP, TSH, HCG ####[address] [place] [address] Protein 7.8 g/dL Normal 6.4-8.3 [facility] Comment on above: Performed By: #### C BC, DAPHNE, CP, LIP, TSH, HCG ####[address] [place] [address] Sodium 139 mmol/L Normal 135-144 [facility] Comment on above: Performed By: #### C BC, DAPHNE, CP, LIP, TSH, HCG ####[address] [place] [address] Staging: Normal [facility] Comment on above: Result Comment: Stag e 1: Some kidney damage normal GFRStage 2: Mild kidney damage GFR 60-89Stage 3: Moderate kidney damage GFR 30-59Stage 4: Severe kidney damage GFR 15-29Stage 5: Severe kidney damage GFR <15ESRD - chronic treatment by dialysis or transplantPerformed at [address] [place] [address] Performed By: #### C BC, DAPHNE, CP, LIP, TSH, HCG ####[address] [place] [address] Urea nitrogen 6 mg/dL Normal 6-20 [facility] Comment on above: Performed By: #### C BC, DAPHNE, CP, LIP, TSH, HCG ####[address] [place] [address] eGFR (non-black) NOT REPORTED Normal >60 [facility] Comment on above: Performed By: #### C BC, DAPHNE, CP, LIP, TSH, HCG ####[address] [place] [address] Drug Scr, Abuse, Uron 2016 Amphetamine(s),Ur Negative Normal NEG [facility] Comment on above: Performed By: #### C BC, DAPHNE, CP, LIP, TSH, HCG ####[address] [place] [address] Barbiturate(s),Ur Negative Normal NEG [facility] Comment on above: Performed By: #### C BC, DAPHNE, CP, LIP, TSH, HCG ####[address] [place] [address] Base excess Negative Normal [facility] Comment on above: Performed By: #### C BC, DAPHNE, CP, LIP, TSH, HCG ####[address] [place] [address] Benzodiazepine(s) Negative Normal NEG [facility] Comment on above: Performed By: #### C BC, DAPHNE, CP, LIP, TSH, HCG ####[address] [place] [address] Buprenorphrine, Ur Negative Normal [facility] Comment on above: Result Comment: Perf ormed at [address] [place] [address] Performed By: #### C BC, DAPHNE, CP, LIP, TSH, HCG ####[address] [place] [address] Cannabinoid(s),Ur Positive Abnormal [facility] Comment on above: Performed By: #### C BC, DAPHNE, CP, LIP, TSH, HCG ####[address] [place] [address] Methamphetamine, Ur Negative Normal [facility] Comment on above: Performed By: #### C BC, DAPHNE, CP, LIP, TSH, HCG ####[address] [place] [address] Opiate(s), Ur Negative Normal [facility] Comment on above: Performed By: #### C BC, DAPHNE, CP, LIP, TSH, HCG ####[address] [place] [address] Oxycodone, Urine Negative Normal NEG [facility] Comment on above: Performed By: #### C BC, DAPHNE, CP, LIP, TSH, HCG ####[address] [place] [address] Phencyclidine, Ur Negative Normal NEG [facility] Comment on above: Performed By: #### C BC, DAPHNE, CP, LIP, TSH, HCG ####[address] [place] [address] Propoxyphene,Urine Negative Normal NEG [facility] Comment on above: Performed By: #### C BC, DAPHNE, CP, LIP, TSH, HCG ####[address] [place] [address] Urine, methadone presence Negative [facility] Comment on above: Performed By: #### C BC, DAPHNE, CP, LIP, TSH, HCG ####[address] [place] [address] Urine, tricyclic antidepressants Negative Normal [facility] Comment on above: Result Comment: Drug screen results are to be used for medical purposes only. All positive results are unconfirmed. Testing for employment or legal uses should be sent to a reference laboratory for confirmation. Performed By: #### C BC, DAPHNE, CP, LIP, TSH, HCG ####[address] [place] [address] Interpretive Info NOT REPORTED Normal [facility] Comment on above: Performed By: #### C BC, DAPHNE, CP, LIP, TSH, HCG ####[address] [place] [address] MDMA, Urine NOT REPORTED Normal NEG [facility] Comment on above: Performed By: #### C BC, DAPHNE, CP, LIP, TSH, HCG ####[address] [place] [address] ED Provider Noteon 7 HIM IP Note OR Product Manager Financial Services Normal [facility] Flu A/B Ag Detectionon 09-18 Flu A/B Ag Detection Specimen Descriptio n .NASOPHARYNGEAL SWABSpecial Requests NOT REPORTEDDirect Exam Presumptive negative for the presence of Influenza A and Influenza B antigen. PCR confirmation of negative results is recommended, since the antigen present in the specimen may be below the detection limit of the test. Performed at [address] [place] [address] Report Status FINAL 09/18/2017 Normal [facility] Comment on above: Performed By: #### C BC, DAPHNE, CP, LIP, TSH, HCG ####[address] [place] [address] HCG, ,Urineon 09-18 HCG.beta subunit ( test) Ql (U) Negative Normal NEG [facility] Comment on above: Result Comment: Perf ormed at [address] [place] [address] Performed By: #### C BC, DAPHNE, CP, LIP, TSH, HCG ####[address] [place] [address] Mononucleosis Screenon 09-18 Monocytes Negative Normal NEG [facility] Comment on above: Result Comment: Perf ormed at [address] [place] [address] Performed By: #### C BC, DAPHNE, CP, LIP, TSH, HCG ####[address] [place] [address] Strep Gr A Direct Agon 09-18 Rapid strep test Specimen Description .THROATSpecial Requests NOT REPORTEDDirect Exam Rapid Strep A negative. A negative Rapid Group A Strep Screen result does not rule out the possibility of Group A Streptococci in the specimen. A Group A strep DNA test will be performed. Performed at [address] [place] [address] Report Status FINAL 09/18/2017 [facility] Comment on above: Performed By: #### C BC, DAPHNE, CP, LIP, TSH, HCG ####[address] [place] [address] UA w/Reflex Cultureon 2016 Acetaminophen mass conc Negative Normal NEG [facility] Comment on above: Performed By: #### C BC, DAPHNE, CP, LIP, TSH, HCG ####[address] [place] [address] Bilirubin (direct) Negative Normal NEG [facility] Comment on above: Performed By: #### C BC, DAPHNE, CP, LIP, TSH, HCG ####[address] [place] [address] Hemoglobin mass conc (Bld) Negative Normal NEG [facility] Comment on above: Performed By: #### C BC, DAPHNE, CP, LIP, TSH, HCG ####[address] [place] [address] Nitrite,Ur Negative Normal NEG [facility] Comment on above: Performed By: #### C BC, DAPHNE, CP, LIP, TSH, HCG ####[address] [place] [address] Turbidity CLEAR Normal CLEAR [facility] Comment on above: Performed By: #### C BC, DAPHNE, CP, LIP, TSH, HCG ####[address] [place] [address] Urine, color YELLOW Normal YEL [facility] Comment on above: Performed By: #### C BC, DAPHNE, CP, LIP, TSH, HCG ####[address] [place] [address] Urine, glucose presence Negative Normal NEG [facility] Comment on above: Performed By: #### C BC, DAPHNE, CP, LIP, TSH, HCG ####[address] [place] [address] Urine, leukocyte esterase presence TRACE Abnormal NEG [facility] Comment on above: Result Comment: Perf ormed at [address] [place] [address] Performed By: #### C BC, DAPHNE, CP, LIP, TSH, HCG ####[address] [place] [address] Urine, pH 8.0 [pH] Normal 5.0-9.0 [facility] Comment on above: Performed By: #### C BC, DAPHNE, CP, LIP, TSH, HCG ####[address] [place] [address] Urine, protein presence Negative Normal NEG [facility] Comment on above: Performed By: #### C BC, DAPHNE, CP, LIP, TSH, HCG ####[address] [place] [address] Urine, specific gravity 1.015 Normal 1.010-1.020 [facility] Comment on above: Performed By: #### C BC, DAPHNE, CP, LIP, TSH, HCG ####[address] [place] [address] Urobilinogen,Ur Normal Normal NORM [facility] Comment on above: Performed By: #### C BC, DAPHNE, CP, LIP, TSH, HCG ####[address] [place] [address] Comment NOT REPORTED Normal [facility] Comment on above: Performed By: #### C BC, DAPHNE, CP, LIP, TSH, HCG ####[address] [place] [address] Urinalysis,Microon 7 ----- Normal [facility] Comment on above: Performed By: #### C BC, DAPHNE, CP, LIP, TSH, HCG ####[address] [place] [address] Mucus Strands 1+ Abnormal NONE [facility] Comment on above: Performed By: #### C BC, DAPHNE, CP, LIP, TSH, HCG ####[address] [place] [address] Trichomonas PRESENCE NOTED Abnormal [facility] Comment on above: Result Comment: Perf ormed at [address] [place] [address] Performed By: #### C BC, DAPHNE, CP, LIP, TSH, HCG ####[address] [place] [address] Urine WBC's 2 TO 5 Normal 0-5 [facility] Comment on above: Performed By: #### C BC, DAPHNE, CP, LIP, TSH, HCG ####[address] [place] [address] Urine, bacteria in sediment TRACE Abnormal NONE [facility] Comment on above: Performed By: #### C BC, DAPHNE, CP, LIP, TSH, HCG ####[address] [place] [address] Urine, epithelial cells in sediment 10 TO 20 Normal 0-25 [facility] Comment on above: Performed By: #### C BC, DAPHNE, CP, LIP, TSH, HCG ####[address] [place] [address] Urine, erythrocytes 0 TO 2 Normal 0-2 [facility] Comment on above: Performed By: #### C BC, DAPHNE, CP, LIP, TSH, HCG ####[address] [place] [address] Epithelial, Renal NOT REPORTED Normal 0 [facility] Comment on above: Performed By: #### C BC, DAPHNE, CP, LIP, TSH, HCG ####[address] [place] [address] Other Observations NOT REPORTED Normal NREQ [facility] Comment on above: Performed By: #### C BC, DAPHNE, CP, LIP, TSH, HCG ####[address] [place] [address] Urine, amorphous sediment presence in sediment NOT REPORTED Normal NONE [facility] Comment on above: Performed By: #### C BC, DAPHNE, CP, LIP, TSH, HCG ####[address] [place] [address] Urine, casts in sediment NOT REPORTED Normal [facility] Comment on above: Performed By: #### C BC, DAPHNE, CP, LIP, TSH, HCG ####[address] [place] [address] Urine, crystals in sediment NOT REPORTED Normal NONE [facility] Comment on above: Performed By: #### C BC, DAPHNE, CP, LIP, TSH, HCG ####[address] [place] [address] Urine, yeast presence in sediment NOT REPORTED Normal NONE [facility] Comment on above: Performed By: #### C BC, DAPHNE, CP, LIP, TSH, HCG ####[address] [place] [address] CT ABDOMEN PELVIS WO IV CONT ROHITTon 07-21-2017 CT ABDOMEN PELVIS WO IV CONTRAST REPORT: CT scans of the abdomen and pelvis without contrast, with coronal and sagittal reformatted images.INDICATION: Generalized abdominal pain; patient states she has been having trouble keeping anything down for the past few months; nausea.FINDINGS: The visualized lung bases show slight, hazy interstitial change on the left. There is faint suggestion of a punctate nonobstructing calculus within the upper pole of the right kidney on axial image 52 and sagittal reformatted image 86, however, this is not certain. The liver, spleen, gallbladder, pancreas, kidneys, and adrenal glands are otherwise normal. There are no enlarged retroperitoneal lymph nodes. The aorta is not dilated.The terminal ileum is distended, or dilated, with fluid, measuring up to 2.5 cm in diameter. The stomach and remainder of the small intestine appear normal. The central portion of the transverse colon is collapsed, making it difficult to evaluate for possible wall thickening. There is a prominent fecal residue within most of the colon. There are is no pericolic inflammatory change. I do not identify the appendix with certainty. There is no free air or free fluid within the abdomen. The bony structures appear to be intact. The pelvic structures are unremarkable.Final report electronically signed by Sean Mayfield on 07/21/2017 3:47 PMIMPRESSION: DISTENTION, OR DILATATION OF A FLUID-FILLED TERMINAL ILEUM WITHOUT APPARENT WALL THICKENING. COLLAPSED TRANSVERSE COLON, DIFFICULT TO EVALUATE FOR WALL THICKNESS. NO PERICOLIC INFLAMMATORY CHANGES. NO OBSTRUCTIVE UROPATHY.Interpreted by:KRISTY Cervantesigned by:Sean Mayfield MD07/21/17Final result Normal [facility] ED Provider Noteon 7 HIM IP Note OR Product Manager Financial Services Normal [facility] Flu A/B Ag Detectionon 07-21 Flu A/B Ag Detection Specimen Descriptio n .NARESSpecial Requests NOT REPORTEDDirect Exam Presumptive negative for the presence of Influenza A and Influenza B antigen. PCR confirmation of negative results is recommended, since the antigen present in the specimen may be below the detection limit of the test. Performed at [address] [place], [place] [id number] [phone] Report Status FINAL 07/21/2017 [facility] Comment on above: Performed By: #### F LUAD ####[address] [place] [address] Strep Gr A Direct Agon 07-21 Strep Gr A Direct Ag Specimen Descriptio n .THROATSpecial Requests NOT REPORTEDDirect Exam POSITIVE for Group A Streptococci Performed at [address] [place], [place] [address] [phone] Report Status FINAL 07/21/2017 [facility] Comment on above: Performed By: #### S GPA ####[address] [place] [address] Urinalysis w/ Microon 2016 ----- Normal [facility] Comment on above: Performed By: #### U AMIC ####[address] [place] [address] Acetaminophen mass conc Negative Normal NEG [facility] Comment on above: Performed By: #### U AMIC ####[address] [place] [address] Bilirubin (direct) Negative Normal NEG [facility] Comment on above: Performed By: #### U AMIC ####[address] [place] [address] Hemoglobin mass conc (Bld) Negative Normal NEG [facility] Comment on above: Performed By: #### U AMIC ####[address] [place] [address] Mucus Strands 3+ Abnormal NONE [facility] Comment on above: Result Comment: Perf ormed at [address] [place] [address] Performed By: #### U AMIC ####[address] [place] [address] Nitrite,Ur Negative Normal NEG [facility] Comment on above: Performed By: #### U AMIC ####[address] [place] [address] Turbidity CLEAR Normal CLEAR [facility] Comment on above: Performed By: #### U AMIC ####[address] [place] [address] Urine WBC's 0 TO 2 Normal 0-5 [facility] Comment on above: Performed By: #### U AMIC ####[address] [place] [address] Urine, bacteria in sediment 1+ Abnormal NONE [facility] Comment on above: Performed By: #### U AMIC ####[address] [place] [address] Urine, color YELLOW Normal YEL [facility] Comment on above: Performed By: #### U AMIC ####[address] [place] [address] Urine, epithelial cells in sediment 5 TO 10 Normal 0-25 [facility] Comment on above: Performed By: #### U AMIC ####[address] [place] [address] Urine, erythrocytes 0 TO 2 Normal 0-2 [facility] Comment on above: Performed By: #### U AMIC ####[address] [place] [address] Urine, glucose presence Negative Normal NEG [facility] Comment on above: Performed By: #### U AMIC ####[address] [place] [address] Urine, leukocyte esterase presence Negative Normal NEG [facility] Comment on above: Performed By: #### U AMIC ####[address] [place] [address] Urine, pH 6.0 [pH] Normal 5.0-9.0 [facility] Comment on above: Performed By: #### U AMIC ####[address] [place] [address] Urine, protein presence TRACE Abnormal NEG [facility] Comment on above: Performed By: #### U AMIC ####[address] [place] [address] Urine, specific gravity 1.025 High 1.010-1.020 [facility] Comment on above: Performed By: #### U AMIC ####[address] [place] [address] Urobilinogen,Ur Normal Normal NORM [facility] Comment on above: Performed By: #### U AMIC ####[address] [place] [address] Comment NOT REPORTED Normal [facility] Comment on above: Performed By: #### U AMIC ####[address] [place] [address] Epithelial, Renal NOT REPORTED Normal 0 [facility] Comment on above: Performed By: #### U AMIC ####[address] [place] [address] Other Observations NOT REPORTED Normal NREQ [facility] Comment on above: Performed By: #### U AMIC ####[address] [place] [address] Trichomonas NOT REPORTED Normal NONE [facility] Comment on above: Performed By: #### U AMIC ####[address] [place] [address] Urine, amorphous sediment presence in sediment NOT REPORTED Normal NONE [facility] Comment on above: Performed By: #### U AMIC ####[address] [place] [address] Urine, casts in sediment NOT REPORTED Normal [facility] Comment on above: Performed By: #### U AMIC ####[address] [place] [address] Urine, crystals in sediment NOT REPORTED Normal NONE [facility] Comment on above: Performed By: #### U AMIC ####[address] [place] [address] Urine, yeast presence in sediment NOT REPORTED Normal NONE [facility] Comment on above: Performed By: #### U AMIC ####[address] [place] [address] Amylaseon 07-18-2017 Amylase 44 U/L Normal 28-100 [facility] Comment on above: Result Comment: Perf ormed at [facility] [address] [place] [address] Performed By: #### C BC, DAPHNE, CP, LIP, TSH, HCG ####[address] [place] [address] CBCon 07-18-2017 Erythrocyte distribution width Auto Ratio (RBC) 14.5 % Normal 12.1-15.2 [facility] Comment on above: Performed By: #### C BC, DAPHNE, CP, LIP, TSH, HCG ####[address] [place] [address] Erythrocytes (RBC) 4.79 10*6/uL Normal 4.0-5.2 [facility] Comment on above: Performed By: #### C BC, DAPHNE, CP, LIP, TSH, HCG ####[address] , [facility] Hematocrit (HCT) 39.1 % Normal 36-46 [facility] Comment on above: Performed By: #### C BC, DAPHNE, CP, LIP, TSH, HCG ####[address] , [facility] Hemoglobin mass conc (Bld) 12.9 g/dL Normal 12.0-16.0 [facility] Comment on above: Performed By: #### C BC, DAPHNE, CP, LIP, TSH, HCG ####[address] [place] [address] MCH 26.9 pg Normal 25-35 [facility] Comment on above: Performed By: #### C BC, DAPHNE, CP, LIP, TSH, HCG ####[address] [place] [address] MCHC mass conc (RBC) 32.9 g/dL Normal 31-37 [facility] Comment on above: Performed By: #### C BC, DAPHNE, CP, LIP, TSH, HCG ####[address] [place] [address] MCV 81.6 fL Normal 78-102 [facility] Comment on above: Performed By: #### C BC, DAPHNE, CP, LIP, TSH, HCG ####[address] [place] [address] Platelet mean volume (PMV) 8.3 fL Normal 6.0-12.0 [facility] Comment on above: Result Comment: Perf ormed at [address] [place] [address] Performed By: #### C BC, DAPHNE, CP, LIP, TSH, HCG ####[address] [place] [address] Platelets 268 10*3/uL Normal 140-450 [facility] Comment on above: Performed By: #### C BC, DAPHNE, CP, LIP, TSH, HCG ####[address] [place] [address] WBC (Leukocytes) 7.7 10*3/uL Normal 4.5-13.5 [facility] Comment on above: Performed By: #### C BC, DAPHNE, CP, LIP, TSH, HCG ####[address] [place] [address] Comp Metabolic Profon 2016 (cont.) Normal [facility] Comment on above: Result Comment: Aver age GFR for <20 years old not available.Chronic Kidney Disease: <60 mL/min/1.73sq mKidney failure: <15 mL/min/1.73sq meGFR calculated using average adult body mass. Additional eGFR calculator available at:http://[email or web address].Undertone/multiple_crcl_2012.htm Performed By: #### C BC, DAPHNE, CP, LIP, TSH, HCG ####[address] [place] [address] Alanine aminotransferase (ALT) 20 U/L Normal 5-33 [facility] Comment on above: Performed By: #### C BC, DAPHNE, CP, LIP, TSH, HCG ####[address] [place] [address] Albumin 4.1 g/dL Normal 3.5-5.2 [facility] Comment on above: Performed By: #### C BC, DAPHNE, CP, LIP, TSH, HCG ####[address] [place] [address] Albumin/Globulin Ratio 1.3 {ratio} Normal 1.0-2.5 [facility] Comment on above: Performed By: #### C BC, DAPHNE, CP, LIP, TSH, HCG ####[address] [place] [address] Alkaline Phos 71 U/L Normal 35-104 [facility] Comment on above: Performed By: #### C BC, DAPHNE, CP, LIP, TSH, HCG ####[address] [place] [address] Anion gap 12 mmol/L Normal 9-17 [facility] Comment on above: Performed By: #### C BC, DAPHNE, CP, LIP, TSH, HCG ####[address] [place] [address] Aspartate aminotransferase (AST) 20 U/L Normal <32 [facility] Comment on above: Performed By: #### C BC, DAPHNE, CP, LIP, TSH, HCG ####[address] [place] [address] Bilirubin Ql (U) 0.43 mg/dL Normal 0.3-1.2 [facility] Comment on above: Performed By: #### C BC, DAPHNE, CP, LIP, TSH, HCG ####[address] [place] [address] BUN/CRE Ratio 15 Normal 9-20 [facility] Comment on above: Performed By: #### C BC, DAPHNE, CP, LIP, TSH, HCG ####[address] [place] [address] Calcium 9.1 mg/dL Normal 8.6-10.4 [facility] Comment on above: Performed By: #### C BC, DAPHNE, CP, LIP, TSH, HCG ####[address] [place] [address] Chloride 106 mmol/L Normal 98-107 [facility] Comment on above: Performed By: #### C BC, DAPHNE, CP, LIP, TSH, HCG ####[address] [place] [address] CO2 24 mmol/L Normal 20-31 [facility] Comment on above: Performed By: #### C BC, DAPHNE, CP, LIP, TSH, HCG ####[address] [place] [address] Creatinine 0.53 mg/dL Normal 0.50-0.90 [facility] Comment on above: Performed By: #### C BC, DAPHNE, CP, LIP, TSH, HCG ####[address] , [facility] CREST83 eGFR (non-black) Pediatric GFR requir es additional information. Refer to NKDEP website for Normal >60 [facility] Comment on above: Result Comment: calc ulator. Performed By: #### C BC, DAPHNE, CP, LIP, TSH, HCG ####[address] [place] [address] Glucose mass conc 95 mg/dL Normal 70-99 [facility] Comment on above: Performed By: #### C BC, DAPHNE, CP, LIP, TSH, HCG ####[address] [place] [address] Potassium molar conc 4.3 mmol/L Normal 3.7-5.3 [facility] Comment on above: Performed By: #### C BC, DAPHNE, CP, LIP, TSH, HCG ####[address] [place] [address] Protein 7.3 g/dL Normal 6.4-8.3 [facility] Comment on above: Performed By: #### C BC, DAPHNE, CP, LIP, TSH, HCG ####[address] [place] [address] Sodium 142 mmol/L Normal 135-144 [facility] Comment on above: Performed By: #### C BC, DAPHNE, CP, LIP, TSH, HCG ####[address] [place] [address] Staging: Normal [facility] Comment on above: Result Comment: Stag e 1: Some kidney damage normal GFRStage 2: Mild kidney damage GFR 60-89Stage 3: Moderate kidney damage GFR 30-59Stage 4: Severe kidney damage GFR 15-29Stage 5: Severe kidney damage GFR <15ESRD - chronic treatment by dialysis or transplantPerformed at [address] [place] [address] Performed By: #### C BC, DAPHNE, CP, LIP, TSH, HCG ####[address] [place] [address] Urea nitrogen 8 mg/dL Normal 6-20 [facility] Comment on above: Performed By: #### C BC, DAPHNE, CP, LIP, TSH, HCG ####[address] [place] [address] eGFR (non-black) NOT REPORTED Normal >60 [facility] Comment on above: Performed By: #### C BC, DAPHNE, CP, LIP, TSH, HCG ####[address] [place] [address] HCG Screen, Bloodon 07-18- 17 HCG Qn Negative Normal NEG [facility] Comment on above: Result Comment: Perf ormed at [address] [place] [address] Performed By: #### C BC, DAPHNE, CP, LIP, TSH, HCG ####[address] , [place] [id number] Lipaseon 07-18-2017 Lipase 31 U/L Normal 13-60 [facility] Comment on above: Result Comment: Perf ormed at [address] [place] [id number] ([phone] Performed By: #### C BC, DAPHNE, CP, LIP, TSH, HCG ####[address] [place] [address] Thyroid Stim. Horm.on 2016 Thyroid stimulating hormone (TSH) 1.32 m[IU]/L Normal 0.30-5.00 [facility] Comment on above: Result Comment: Perf ormed at [address] [place] [address] ([phone] Performed By: #### C BC, DAPHNE, CP, LIP, TSH, HCG ####[address] [id number] XR ACUTE ABD SERIES CHEST 1 VWon 07-18-2017 Weight FINAL REPORTEXAM: XR ACUTE ABD SERIES CHEST 1 VWHISTORY: Loss of weight lower abdominal pain TECHNIQUE: Three way abdomen PRIORS: None.FINDINGS: Abdominal bowel gas pattern is nonobstructive but nonspecific. No free air. No suspicious calcifications are identified. Abundant fecal material noted primarily on the right. Lungs are clear. Heart and mediastinum unremarkable.IMPRESSION: Impression: Nonspecific three-way abdomen. Interpreted by:KRISTY Inmanigned by:Xochilt Louie MD07/18/17Final result Normal [facility] Vital Signs Date Time Vital Sign Value Performing Clinician Facility 04-23-2023 10:00-0400 Body height 162.56 cm [facility] Other 04-23-2023 10:00-0400 Body mass index (BMI) [Ratio] 38.27 kg/m2 [facility] Other 04-23-2023 10:00-0400 Body weight 101.15 kg Imad Asaad Other [facility] Other 04-23-2023 10:00-0400 Diastolic blood pressure 62 mm[Hg] Imad Asaad Other [facility] Other 04-23-2023 10:00-0400 Systolic blood pressure 105 mm[Hg] Imad Asaad Other [facility] Other 02-05-2023 10:00-0400 Body height 162.56 cm Imad Asaad Other [facility] Other 02-05-2023 10:00-0400 Body mass index (BMI) [Ratio] 40.85 kg/m2 Imad Asaad Other [facility] Other 02-05-2023 10:00-0400 Body weight 107.96 kg Imad Asaad Other [facility] Other 02-05-2023 10:00-0400 Diastolic blood pressure 61 mm[Hg] Imad Asaad Other [facility] Other 02-05-2023 10:00-0400 Systolic blood pressure 104 mm[Hg] [facility] Asa[facility] Other [facility] Other Encounters Encounter Date Encounter Type Care Provider Facility Start: 04-23-2023 End: 04-23-2023 ambulatory Imad Asaad Other [facility] Other Start: 04-23-2023 Office outpatient visit 15 minutes Imad Asaad [facility] Start: 03-16-2023 End: 03-16-[address] HAMIDA SY . Facility:[facility] Start: 02-24-2023 End: 02-24-2023 ambulatory Imad Asaad Facility:[facility] Start: 02-24-2023 End: 02-24-2023 ambulatory DO Cathryn Rumschlag Work Phone: [facility] Work Phone: Start: 02-24-2023 End: 02-24-2023 Patient encounter procedure DO Cathryn Rumschlag Work Phone: [facility] Work Phone: Start: 02-19-2023 End: 02-19-2023 ambulatory Cathryn Rumschlag Facility:[facility] Start: 02-19-2023 End: 02-19-2023 Patient encounter procedure DO Cathryn Rumschlag Work Phone: [facility] [place] Work Phone: Start: 02-05-2023 End: 02-05-2023 ambulatory Imad Asaad Other [facility] Other Start: 02-05-2023 Office outpatient ne w 45 minutes Imad Asaad [facility] Start: 01-13-2023 ambulatory DAPHNE MERCADO . Facility:[facility] Start: 12-18-2022 End: 12-18-2022 ambulatory DAPHNE MERCADO . Facility:[facility] Start: 09-18-[address] HAMIDA SY . Facili ty:[facility] Start: 07-24-2022 End: 07-24-[address] HAMIDA SY . Facility:[facility] Start: 05-07-2022 End: 05-07-[address] ABDIFATAH SCHOFIELD Facility:[facility] Start: 04-08-2022 End: 04-08-[address] ABDIFATAH SCHOFIELD Facility:[facility] Start: 11-15-2017 End: 11-17-2017 Evaluation and management of inpatient KALIN MCKEON [facility] Start: 11-14-2017 End: 11-15-2017 [facility] Start: 09-18-2017 End: 09-18-2017 Emergency department patient visit ABDIFATAH Sellers [facility] Start: 07-21-2017 End: 07-21-2017 Emergency department patient visit LILA GOMEZ [facility] Start: 07-18-2017 End: 07-19-2017 Ambulatory ABDIFATAH Sellers [facility] Procedures Date Procedure Procedure Detail Performing Clinician Start: 02-24-2023 Ultrasound elastogra phy of liver DO Cathryn Rumschlag Work Phone: Start: 02-19-2023 Ultrasonography of liver DO Cathryn Rumschlag Work Phone: Start: 11-17-2017 DISCHARGE PATIENT FRANKY ALFAROPTA Start: 11-16-2017 CBC WITH AUTO DIFFERENTIAL KALIN MCKEON Start: 11-16-2017 COMPREHENSIVE METABO LIC PANEL KALIN MCKEON Start: 11-15-2017 DIET GENERAL KALIN PROOFER [facility]ACK [facility] WH[facility] Start: 11-15-2017 FULL CODE KALIN PROOFER BLACK AND WHITE Start: 11-15-2017 IP CONSULT TO HISTOR Y AND PHYSICAL KALIN MCKEON Start: 11-15-2017 PATIENT STATUS (DIRECT) KALIN MCKEON Start: 11-15-2017 VITAL SIGNS KALIN PROOFER BLACK AND WHITE Start: 11-14-2017 , URINE ABDIFATAH CHANDU Start: 11-14-2017 URINE DRUG SCREEN REAGA N CHANDU Start: 11-14-2017 CBC WITH AUTO DIFFERENTIAL ABDIFATAH CHANDU Start: 11-14-2017 BASIC METABOLIC PANEL R PETRONA CHANDU Start: 11-14-2017 TOX SCR, BLD, ED ABDIFATAH CHANDU Start: 11-14-2017 ED NURSING COMMUNICATION ABDIFATAH CHANDU Start: 11-14-2017 SUICIDE PRECAUTIONS JORGITO KATI CHANDU Start: 09-18-2017 STREP SCREEN GROUP A THROAT ABDIFATAH CHANDU Start: 09-18-2017 STREP A DNA PROBE, AMPLIFICATION ABDIFATAH CHANDU Start: 09-18-2017 Ct head/brain w/o co ntrast material ABDIFATAH CHANDU Start: 09-18-2017 CBC WITH AUTO DIFFERENTIAL ABDIFATAH CHANDU Start: 09-18-2017 COMPREHENSIVE METABO LIC PANEL ABDIFATAH CHANDU Start: 09-18-2017 MONONUCLEOSIS SCREEN RE AGAN CHANDU Start: 09-18-2017 RAPID INFLUENZA A/B ANTIGENS ABDIFATAH CHANDU Start: 09-18-2017 Microscopic urinalysis ABDIFATAH CHANDU Start: 09-18-2017 , URINE ABDIFATAH CHANDU Start: 09-18-2017 UA W/REFLEX CULTURE JORGITO KATI CHANDU Start: 09-18-2017 URINE CULTURE ABDIFATAH BR ISTOL Start: 09-18-2017 URINE DRUG SCREEN REAGA N CHANDU Start: 07-21-2017 Ct abdomen & pelvis w/o contrast material ABDIFATAH BRISTOL Start: 07-21-2017 URINALYSIS WITH MICROSCOPIC ABDIFATAH BRISTOL Start: 07-21-2017 RAPID INFLUENZA A/B ANTIGENS ABDIFATAH BRISTOL Start: 07-21-2017 STREP SCREEN GROUP A THROAT ABDIFATAH CHANDU Start: 07-18-2017 Radex abd compl aqt abd w/s/e/d views 1 view ch ABDIFATAH BRISTOL Start: 07-18-2017 AMYLASE ABDIFATAH BRYANNA STOL Start: 07-18-2017 CBC ABDIFATAH BRYANNA STOL Start: 07-18-2017 COMPREHENSIVE METABO LIC PANEL ABDIFATAH BRISTOL Start: 07-18-2017 HCG, SERUM, QUALITATIVE ABDIFATAH BRISTOL Start: 07-18-2017 LIPASE ABDIFATAH BRYANNA STOL Start: 07-18-2017 TSH WITHOUT REFLEX REAG AN CHANDU Plan of Treatment Date Care Activity Detail Author Start: 02-24-2023 [facility] Payers Date Payer Category Payer Medicaid [id number] 1998 Unknown [id number] 2.16.84 [id number] 1998 Unknown [id number] 2.16.84 [id number] 1998 Unknown [id number] 2.16.84 [id number] 1998 Unknown [id number] 2.16.84 [id number] 1998 Unknown [id number] 2.16.84 [id number] 1998 Unknown [id number] 2.16.84 [id number] 1998 Unknown [id number] 2.16.84 [id number] 1998 Unknown [id number] 2.16.84 [id number] 1959 Self-pay [id number] 1959 Unknown [id number] 1959 Unknown [id number] Unknown [id number] 2.16.8 [id number] Unknown [id number] 2.16.8 [id number] Social History Date Type Detail Facility Unknown if ever smoked [facility] Other Sex Assigned At Sex Assigned At [facility] [employer] [facility] Other Start: 12-16-2020 Tobacco smoking status NHIS Ex-smoker (finding) [facility] Start: 2000 Sex Assigned At Female F [facility] Goals Date Patient Goal Desired Activity /State Evaluation note 04-23-2023 Note Date & Type Note Facility 04-23-2023 Evaluation note Encounter Date Diagnosis Assessment Notes Apr, Hepatitis C (ICD-10 - B19.20) Apr, Fatty liver (ICD-10 - K76.0) FATTY LIVER WAS FOUND ON FIBROSCAN. PATIENT WAS EDUCATED ON WEIGHT LOSS & LIFESTYLE CHANGES. FOLLOW UP NEEDED . [facility] Other Evaluation note 02-05-2023 Note Date & Type Note Facility 02-05-2023 Evaluation note Encounter Date Diagnosis Assessment Notes Jan, Hepatitis C (ICD-10 - B19.20) Labs, ultrasound, and fibroscan as indicated above. Start approval process for [employer]. [facility] Other Evaluation note Note Date & Type Note Facility Evaluation note No assessment information availa ble [facility] Work Phone: History general Narrative - Reported Note Date & Type Note Facility History general Narrative - Reported Type Medical History pre diabetes Medical History anxiety/depression Medical History herpes [facility] Other History general Narrative - Reported Note Date & Type Note Facility History general Narrative - Reported Type Medical History pre diabetes Medical History anxiety/depression Medical History herpes Surgical History NONE Hospitalization History [facility] Other Summary Purpose Family History No Family History Records FoundNo Family History Records FoundNo Family History Records FoundNo Family History Records Found Advance Directives Advance Directive Response Recorded Date/ Time Advance Directives No July 11:45am Chief Complaint and Reason for Visit Chief Complaint Hepatitis C Hepatitis C Additional Source Comments INFORMATION SOURCE (unrecogn ized section and content) DATE CREATED AUTHOR 05/18/2018 [facility] DATE CREATED AUTHOR AUTHOR'S ORGANIZ ATION 05/18/2018 [facility] DATE CREATED AUTHOR AUTHOR'S ORGANIZ ATION 03/07/2023 [facility] DATE CREATED AUTHOR AUTHOR'S ORGANIZ ATION 03/24/2023 [facility] REASON FOR VISIT (unrecogniz ed section and content) PATIENT IS HERE AT THE REQUE [facility] [place] SO FOR HEP CPATIENT IS HERE FOR FOLLOW UP US/FIBROSCAN/AND LABS Care Teams (unrecognized sec tion and content) Team Status: Active Member Role Status Dates Cathryn So DO Primary Care Provider Active Team Status: Inactive Member Role Status Dates Alexis Rios MD Attending Provider Active Cathryn So DO Primary Care Provider Active FOR RECORDS PERTAINING TO PATIENTS WHO ARE OR HAVE BEEN ENROLLED IN A CHEMICAL DEPENDENCY/SUBSTANCEABUSE PROGRAM, SOME INFORMATION MAY BE OMITTED. This clinical summary was aggregated from multiple sources. Caution should be exercised in using it in the provision of clinical care. This summary normalizes information from multiple sources, and as a consequence, information in this document may materially change the coding, format and clinical context of patient data. In addition, data may be omitted in some cases. CLINICAL DECISIONS SHOULD BE BASED ON THE PRIMARY CLINICAL RECORDS. [employer] provides no warranty or guarantee of the accuracy or completeness of information in this document.
[2024-03-23 18:08] LABS: Age Gdln ACOG Testing Note (.); IGP, rfx Aptima HPV ASCU Note (.)
== END 2024-03-17 19:29 | disposition home or self-care (01) ==
LOC: LAB 19:28
PROVIDERS: Visit Provider Obstetrics & Gynecology
DX: Z01.419 Encounter for gynecological examination (general) (routine) without abnormal findings (principal)
CPT/HCPCS: G0145

== ENCOUNTER 2024-07-19 10:16 | Outpatient (OUT) | payer OTHER, SELFPAY ==
--- OUTSIDE RECORDS SUMMARY | 2024-07-19 10:37 | XMS_ITS | CCD ---
Author Organization [facility] Care Team Providers Care Coremaker Apprentice Name Role Phone MCKEON, KALIN Unavailable Unavailable MCKEON, KALIN Unavailable Unavailable BRISTOL, ABDIFATAH E Unavailable Unavailable BRISTOL, ABDIFATAH E Unavailable Unavailable BRISTOL, ABDIFATAH E Unavailable Unavailable BRISTOL, ABDIFATAH E Unavailable Unavailable BRISTOL, ABDIFATAH E Unavailable Unavailable BRISTOL, ABDIFATAH E Unavailable Unavailable BRISTOL, ABDIFATAH E Unavailable Unavailable LILA GOMEZ Unavailable Unavailable BRISTOL, ABDIFATAH E Unavailable Unavailable BRISTOL, ABDIFATAH E Unavailable Unavailable BOBBEST HELMS A Unavailable Unavailable BRISTOL, ABDIFATAH E Unavailable Unavailable Asaad, Imad Unavailable MD Blanca Imad Attending Provider DO Cathryn So Primary Care Provider Asaad, Imad Admitting Unavailable Cathryn So Primary Care Unavailable Asaad, Imad Attending Unavailable Cathryn So Primary Care Unavailable Asaad, Imad Attending Unavailable Asaad, Imad Admitting Unavailable YOSSI ., DR MEI Consulting Unavailable CHANDU, DR GARDINER Primary Care Unavailable YOSSI ., DR MEI Admitting Unavailable YOSSI ., DR MEI Attending Unavailable JESS ., DAPHNE Attending Unavailable JESS ., DAPHNE Consulting Unavailable [...] YOSSI ., DR MEI Attending Unavailable JESS .DAPHNE Admitting Unavailable JESS .DAPHNE Attending Unavailable CHANDU, DR GARDINER Primary Care Unavailable CHANDU, DR GARDINER Primary Care Unavailable YOSSI ., DR MEI Admitting Unavailable YOSSI ., DR MEI Attending Unavailable YOSSI ., DR MEI Consulting Unavailable HAMIDA SY Attending Unavailable HAMIDA SY Attending Unavailable Allergies Allergy Classification Reported Allergen(s) Allergy Type Date of Onset Reaction(s) Facility (3 sources) Codeine Drug Allergy 1 Unknown, Rash [facility] (2 sources) Penicillin Drug Allergy Unknown [employer] Other (4 sources) Penicillins; Translations: [Penicillins] Allergy to substance 4 [facility] (1 source) Codeine Drug Allergy 1 [facility] Repository (2 sources) Codeine Drug Allergy 4 [facility] Repository Medications Current Medications Medication Drug Class(es) [...] 21 to 29on 03-23-2023 . . Normal [facility] Comment on above: Performed By: #### [id number] #### [facility] [address] [place] [address] Dr. Vivian Govea Age Gdln ACOG Testing 19- [facility] Comment on above: Performed By: #### 4 [id number] #### [facility] [address] [place] [address] Dr. Vivian Govea DIAGNOSIS: Comment [facility] Comment on above: Result Comment: NEGA TIVE FOR INTRAEPITHELIAL LESION OR MALIGNANCY. Performed By: #### 4 [id number] #### [facility] [address] [place] [address] Dr. Vivian Govea Methodology: Comment [facility] Comment on above: Result Comment: This liquid based ThinPrep(R) pap test was screened with the use of an image guided system. Performed By: #### 4 [id number] #### [facility] [address] [place] [address] Dr. Vivian Govea Note: Comment [facility] Comment on above: Result Comment: The Pap smear is a screening test designed to aid in the detection of premalignant and malignant conditions of the uterine cervix. It is not a diagnostic procedure and should not be used as the sole means of detecting cervical cancer. Both false-positive and false-negative reports do occur. . Performed By: #### 4 [id number] #### [facility] [address] [place] [address] Dr. Vivian Govea Performed by: Comment [facility] Comment on above: Result Comment: Jose L Izquierdo Lumber Stacker Operator (ASCP) Performed By: #### 4 [id number] #### [facility] [address] [place] [address] Dr. Vivian Govea Reflex Criteria: Comment [facility] Comment on above: Result Comment: The HPV DNA reflex criteria were not met with this specimen result therefore, no HPV testing was performed. . Performed By: #### 4 [id number] #### [facility] [address] [place] [address] Dr. Vivain Govea Specimen adequacy: Comment [facility] Comment on above: Result Comment: Sati sfactory for evaluation. Endocervical and/or squamous metaplastic cells (endocervical component) are present. Performed By: #### 4 [id number] #### [facility] [address] [address] [address] Vivian Govea HCG ( test) IAdanyel d Ql (U)Ordered By: Imyanelis Asaad on 02-24-2023 HCG ( test) Ql (U) Negative [facility] HCG,Urineon 02-24-2023 Beta HCG ( test) Ql (U) Negative Normal [facility] Comment on above: Result Comment: PERF ORMED BY: [place] [address] PATHOLOGIST SIGN MAKER PROSPER BURGOS M.D. Performed By: #### U HCG #### [address] HCV genotyping ser/plas ampl ified probeOrdered By: Alexis Rios on 02-19-2023 HCV genotype OCTAVIO+probe Nom See comment . [facility] Comment on above: Test not performed. Unable to provide an HCV genotype forthis sample. The most common reason an HCV genotype cannotbe determined is due to a viral load of <1,000 IU/mL, ormore rarely, the presence of an untypable HCV genotype. HIV 1/O/2 Antigen/Antibodyon 02-19-2023 HIV Screen 4th Generation Non-Reactive Normal Non Reactive [facility] Comment on above: Order Comment: Reaso n for Exam Hepatitis C Result Comment: HIV Negative HIV-1/HIV-2 antibodies and HIV-1 p24 antigen were NOT detected. There is no laboratory evidence of HIV infection. Performed at: - [facility] [id number] Depositing Machine Operator: Robin Mccormack PhD, Phone: [phone] PERFORMED BY: [place] [address] PATHOLOGIST SIGN MAKER PROSPER BURGOS M.D. Performed By: #### H CV RNAQNT, HBSAG, HIV SCREEN, HBCAB, HAABT, HBSAB, HCV DUSTY #### [facility] , HIV 1 and HIV-2 antibody ass ay with HIV-1 p24 antigen detectionOrdered By: Alexis Rios on 02-19-2023 HIV 1+2 Ab+HIV1 p24 Ag IA Ql Non-Reactive Non Reactive [facility] Comment on above: HIV NegativeHIV-1/HI V-2 antibodies and HIV-1 p24 antigen were NOTdetected. There is no laboratory evidence of HIV infection.Performed at: [address] [id number] Director: Robin Mccormack PhD, Phone: [phone] Hep C Genotyping Non Reflexo n 02-19-2023 Hepatitis C Genotype Normal . [facility] Comment on above: Order Comment: Reaso [...] #### [facility] , Please Note: Normal . [facility] Comment on above: Order Comment: Reaso n for Exam Hepatitis C Result Comment: This test was developed and its performance characteristics determined by [facility]. It has not been cleared or approved by the U.S. Food and Drug Administration. The FDA has determined that such clearance or approval is not necessary. This test is used for clinical purposes. It should not be regarded as investigational or for research. Performed at: [facility] [id number] Depositing Machine Operator: Yue Hammond MD, Phone: [phone] PERFORMED BY: [place] [address] [place] [address] PATHOLOGIST SIGN MAKER PROSPER BURGOS M.D. Performed By: #### H CV RNAQNT, HBSAG, HIV SCREEN, HBCAB, HAABT, HBSAB, HCV DUSTY #### [facility] , Hep C RT-PCR, Qnt (Non-Graph )on 02-19-2023 Hepatitis C Quantitation Not detected Normal . [facility] Comment on above: Order Comment: Reaso n for Exam Hepatitis C Performed By: #### H CV RNAQNT, HBSAG, HIV SCREEN, HBCAB, HAABT, HBSAB, HCV DUSTY #### [facility] , Test Information: Normal . [facility] Comment on above: Order Comment: Reaso n for Exam Hepatitis C Result Comment: The quantitative range of this assay is 15 IU/mL to 100 million IU/mL. Performed at: - [facility] [id number] Depositing Machine Operator: Yue Hammond MD, Phone: [phone] Performed By: #### H CV RNAQNT, HBSAG, HIV SCREEN, HBCAB, HAABT, HBSAB, HCV DUSTY #### [facility] , Hepatitis A Antibody Totalon 02-19-2023 Hepatitis A Antibody Total Negative Normal Negative [facility] Comment on above: Order Comment: Reaso n for Exam Hepatitis C Result Comment: Perf ormed at: - [facility] [address] [id number] Depositing Machine Operator: Robin Mccormack PhD, Phone: [phone] Performed By: #### H CV RNAQNT, HBSAG, HIV SCREEN, HBCAB, HAABT, HBSAB, HCV DUSTY #### [facility] , Hepatitis A virus Ab [Presen ce] in Serum by ImmunoassayOrdered By: Alexis Rios on 02-19-2023 HAV Ab IA Ql (S) Negative Negative [facility] Comment on above: Performed at: [facility] [address] [id number] Director: Robin Mccormack PhD, Phone: [phone] Hepatitis B Core Antibodyon 02-19-2023 Hepatitis B Core Antibody Negative Normal Negative [facility] Comment on above: Order Comment: Reaso n for Exam Hepatitis C Performed By: #### H CV RNAQNT, HBSAG, HIV SCREEN, HBCAB, HAABT, HBSAB, HCV DUSTY #### [facility] , Hepatitis B Surface Antibody on 02-19-2023 Hepatitis B Surface Antibody Non-Reactive Normal . [facility] Comment on above: Order Comment: Reaso n for Exam Hepatitis C Result Comment: Non Reactive: Inconsistent with immunity, less than 10 mIU/mL Reactive: Consistent with immunity, greater than 9.9 mIU/mL Performed By: #### H CV RNAQNT, HBSAG, HIV SCREEN, HBCAB, HAABT, HBSAB, HCV DUSTY #### [facility] , Hepatitis B Surface Antigeno n 02-19-2023 HBsAg Screen Negative Normal Negative [facility] Comment on above: Order Comment: Reaso n for Exam Hepatitis C Performed By: #### H CV RNAQNT, HBSAG, HIV SCREEN, HBCAB, HAABT, HBSAB, HCV DSUTY #### [facility] , Hepatitis B virus surface Ag [Presence] in Serum or Plasma by ImmunoassayOrdered By: Imad Asaad on 02-19-2023 HBV surface Ag IA Ql Negative Negative [facility] Hepatitis C virus RNA [log u nits/volume] (viral load) in Serum or Plasma by OCTAVIO withOrdered By: Imad Asaad on 02-19-2023 HCV RNA OCTAVIO+probe [Log units/Vol] Not detected . [facility] No Panel InformationOrdered By: Imad Asaad on 02-19-2023 Hepatitis B Core Total Antibody Negative Negative [facility] Hepatitis C RNA (PCR) Interpret See comment . [facility] Comment on above: The quantitative ran ge of this assay is 15 IU/mL to 100million IU/mL.Performed at: [address] [id number] Director: Yue Hammond MD, Phone: [phone] Herpes Simplex Virus Note 2 See comment . [facility] Comment on above: This test was develo ped and its performance characteristicsdetermined by [facility]. It has not been cleared or approvedby the U.S. Food and Drug Administration.The FDA has determined that such clearance or approval isnot necessary. This test is used for clinical purposes. Itshould not be regarded as investigational or for research.Performed at: - [facility] [place], [place] [id number] Director: Yue Hammond MD, Phone: [phone] Serum hepatitis B virus surf daisy antibody detectionOrdered By: Alexis Rios on 02-19-2023 HBV surface Ab Ql (S) Non-Reactive . [facility] Comment on above: Non Reactive: Incons istent with immunity, less than 10 mIU/mL Reactive: Consistent with immunity, greater than 9.9 mIU/mL US liveron 02-19-[address] [facility] [place] [address] Ultrasound Report Signed Patient: Sabra Wills MR#: [id number] : 2000 Acct:[id number] Age/Sex: 22 / F ADM Date: 02/19/23 Loc: Room: Type: [facility] Attending Dr: Alexis Rios MD Ordering [...] DEderOEder02/19/2023 11:18 AM Dictation Location: [place] [address] Tech: Cate Gimenez Transcribed By: BIN 02/19/231117 Dictated By: Venkata Benavides Jr, DO 02/19/231116 Signed By: 02/19/23 111 [facility] CHLAMYDIA/GONOCOCCUS OCTAVIO (SW AB/URINE/PAPon 12-22-2022 Chlamydia trachomatis, OCTAVIO Negative Normal Negative [facility] Comment on above: Performed By: #### C T/NGNA #### [facility] [address] [place] [address] Dr. Vivian Govea Neisseria gonorrhoeae, OCTAVIO Negative Normal Negative [facility] Comment on above: Performed By: #### C T/NGNA #### [facility] [address] [place] [address] Dr. Vivian Govea VAGINITIS/VAGINOSIS DNA PROB Lenard 12-20-2022 Kaylin species Negative Normal Negative [facility] Comment on above: Performed By: #### V AGINT #### [facility] [address] [place] [address] Dr. Vivian Govea Gardnerella vaginalis Positive Abnormal Negative [facility] Comment on above: Performed By: #### V AGINT #### [facility] [address] [place] [address] Dr. Vivian Govea Trichomonas vaginalis Negative Normal Negative [facility] Comment on above: Performed By: #### V AGINT #### [facility] [address] [place] [address] Dr. Vivian Govea CHLAMYDIA/GONOCOCCUS OCTAVIO (SW AB/URINE/PAPon 07-28-2022 Chlamydia trachomatis, OCTAVIO Negative Normal Negative [facility] Comment on above: Performed By: #### C T/NGNA #### [facility] [address] [place] [address] Dr. Vivian Gvoea Neisseria gonorrhoeae, OCTAVIO Negative Normal Negative [facility] Comment on above: Performed By: #### C T/NGNA #### [facility] [address] [place] [address] Dr. Vivian Govea VAGINITIS/VAGINOSIS DNA PROB Lenard 07-27-2022 Kaylin species Negative Normal Negative [facility] Comment on above: Performed By: #### V AGINT #### [facility] [address] [place] [address] Dr. Vivian Govea Gardnerella vaginalis Positive Abnormal Negative [facility] Comment on above: Performed By: #### V AGINT #### [facility] [address] [place] [address] Dr. Vivian Govea Trichomonas vaginalis Negative Normal Negative [facility] Comment on above: Performed By: #### V AGINT #### [facility] [address] [place] [address] Dr. Vivian Govea VAGINITIS/VAGINOSIS DNA PROB Lenard 05-09-2022 Kaylin species Negative Normal Negative [facility] Comment on above: Performed By: #### V AGINT #### [facility] [address] [place] [address] Dr. Vivian Govea Gardnerella vaginalis Positive Abnormal Negative [facility] Comment on above: Performed By: #### V AGINT #### [facility] [address] [place] [address] Dr. Vivian Govea Trichomonas vaginalis Negative Normal Negative [facility] Comment on above: Performed By: #### V AGINT #### [facility] [address] [place] [address] Dr. Vivian Govea CHLAMYDIA/GONOCOCCUS OCTAVIO (SW AB/URINE/PAPon 04-11-2022 Chlamydia trachomatis, OCTAVIO Negative Normal Negative [facility] Comment on above: Performed By: #### C T/NGNA #### [facility] [address] [place] [address] Dr. Vivian Govea Neisseria gonorrhoeae, OCTAVIO Negative Normal Negative [facility] Comment on above: Performed By: #### C T/NGNA #### [facility] [address] [place] [address] Dr. Vivian Govea VAGINITIS/VAGINOSIS DNA PROB Len[place] 04-10-2022 Kaylin species Negative Normal Negative [facility] Comment on above: Performed By: #### V AGINT #### [facility] [address] [place] [address] Dr. Vivian Govea Gardnerella vaginalis Negative Normal Negative [facility] Comment on above: Performed By: #### V AGINT #### [facility] [address] [place] [address] Dr. Vviian Govea Trichomonas vaginalis Positive Abnormal Negative [facility] Comment on above: Performed By: #### V AGINT #### [facility] [address] [place] [address] Dr. Vivian Govea CBC with Diffon 11-16-2017 Abs. Basophil 0.10 k/uL Normal 0.0-0.2 [facility] Comment on above: Result Comment: Perf ormed at [facility] [address] [place] [address] Performed By: #### C DP, CP ####[address] [address] Abs.Neutrophil (Seg) 3.90 k/uL Normal 1.3-9.[address] [facility] Comment on above: Performed By: #### C DP, CP ####[address] [address] Basophils/100 WBC Auto (Bld) 1 % Normal 0-2 [facility] Comment on above: Performed By: #### C DP, CP ####[facility] [place] [address] Eosinophils 0.30 10*3/uL Normal 0.0-0.4 [facility] Comment on above: Performed By: #### C DP, CP ####[facility] [place] [address] Eosinophils/100 leukocytes 4 % Normal 0-4 [facility] Comment on above: Performed By: #### C DP, CP ####[facility] [place] [address] Erythrocyte distribution width Auto Ratio (RBC) 13.9 % Normal 11.5-14.9 [facility] Comment on above: Performed By: #### C DP, CP ####[address] [address] Erythrocytes (RBC) 4.72 10*6/uL Normal 4.0-5.[address] [facility] Comment on above: Performed By: #### C DP, CP ####[facility] [facility] [place] [address] Hematocrit (HCT) 39.5 % Normal 36-46 [facility] Comment on above: Performed By: #### C DP, CP ####[facility] [place] [address] Hemoglobin mass conc (Bld) 13.2 g/dL Normal 12.0-16.0 [facility] Comment on above: Performed By: #### C DP, CP ####[facility] [place] [address] Lymphocytes 1.90 10*3/uL Normal 1.2-5.2 [facility] Comment on above: Performed By: #### C DP, CP ####[facility] [place] [address] Lymphocytes/100 leukocytes 29 % Normal 25-45 [facility] Comment on above: Performed By: #### C DP, CP ####[facility] [place] [address] MCH 27.9 pg Normal 25-35 [facility] Comment on above: Performed By: #### C DP, CP ####[facility] [place] [address] MCHC mass conc (RBC) 33.4 g/dL Normal 31-[address] [facility] Comment on above: Performed By: #### C DP, CP ####[facility] [place] [address] MCV 83.6 fL Normal 78-102 [facility] Comment on above: Performed By: #### C DP, CP ####[facility] [place] [address] Monocytes 0.60 10*3/uL Normal 0.1-1.3 [facility] Comment on above: Performed By: #### C DP, CP ####[facility] [place] [address] Monocytes/100 leukocytes 9 % High 2-8 [facility] Comment on above: Performed By: #### C DP, CP ####[address] [address] Neutrophil (Seg) 57 % Normal 34-64 [facility] Comment on above: Performed By: #### C DP, CP ####[address] [address] Platelet mean volume (PMV) 8.0 fL Normal 6.0-12.0 [facility] Comment on above: Performed By: #### C DP, CP ####[address] [address] Platelets 242 10*3/uL Normal 150-450 [facility] Comment on above: Performed By: #### C DP, CP ####[address] [place] [address] WBC (Leukocytes) 6.8 10*3/uL Normal 4.5-13.[address] [facility] Comment on above: Performed By: #### C DP, CP ####[facility] [place] [address] [place] [address] Auto Diff Performed NOT REPORTED Normal [facility] Comment on above: Performed By: #### C DP, CP ####[address] [address] Erythrocyte morphology NOT REPORTED Normal [facility] Comment on above: Performed By: #### C DP, CP ####[address] [address] Granulocytes/100 WBC (Bld) NOT REPORTED Normal 0.00-0.30 [facility] Comment on above: Performed By: #### C DP, CP ####[facility] [place] [address] Immature granulocytes #/vol (Bld) NOT REPORTED Normal 0 [facility] Comment on above: Performed By: #### C DP, CP ####[address] [address] Platelets NOT REPORTED Normal [facility] Comment on above: Performed By: #### C DP, CP ####[address] [address] WBC Morphology NOT REPORTED Normal [facility] Comment on above: Performed By: #### C DP, CP ####[address] [address] Comp Metabolic Profon 2016 (cont.) Normal [facility] Comment on above: Result Comment: Aver age GFR for <20 years old not available.Chronic Kidney Disease: <60 mL/min/1.73sq mKidney failure: <15 mL/min/1.73sq meGFR calculated using average adult body mass. Additional eGFR calculator available at:[email or web address] at [facility] [address] [place] [address] Performed By: #### C DP, CP ####[address] [address] Alanine aminotransferase (ALT) 44 U/L High 5-33 [facility] Comment on above: Performed By: #### C DP, CP ####[address] [address] Albumin 3.9 g/dL Normal 3.5-5.2 [facility] Comment on above: Performed By: #### C DP, CP ####[address] [address] Alkaline Phos 68 U/L Normal 35-104 [facility] Comment on above: Performed By: #### C DP, CP ####[address] [address] Anion gap 11 mmol/L Normal 9-17 [facility] Comment on above: Performed By: #### C DP, CP ####[address] [address] Aspartate aminotransferase (AST) 37 U/L High <32 [facility] Comment on above: Performed By: #### C DP, CP ####[address] [address] Bilirubin Ql (U) 0.39 mg/dL Normal 0.3-1.2 [facility] Comment on above: Performed By: #### C DP, CP ####[address] [address] Calcium 9.1 mg/dL Normal 8.6-10.4 [facility] Comment on above: Performed By: #### C DP, CP ####[address] [address] Chloride 103 mmol/L Normal 98-107 [facility] Comment on above: Performed By: #### C DP, CP ####[address] [address] CO2 26 mmol/L Normal 20-31 [facility] Comment on above: Performed By: #### C DP, CP ####[address] [place] [address] Creatinine 0.54 mg/dL Normal 0.50-0.90 [facility] Comment on above: Performed By: #### C DP, CP ####[facility] [place] [address] eGFR (non-black) Pediatric GFR requir es additional information. Refer to NKDEP website for Normal >60 [facility] Comment on above: Result Comment: calc ulator. Performed By: #### C DP, CP ####[facility] [place], [place] [address] [place] [address] Glucose mass conc 91 mg/dL Normal 70-[address] [facility] Comment on above: Performed By: #### C DP, CP ####[facility] [place], [place] [address] [place] [address] Potassium molar conc 4.2 mmol/L Normal 3.7-5.[address] [facility] Comment on above: Performed By: #### C DP, CP ####[facility] [place], [place] [address] [facility] [place] [address] Protein 6.9 g/dL Normal 6.4-8.3 [facility] Comment on above: Performed By: #### C DP, CP ####[facility] [facility] [place] [address] Sodium 140 mmol/L Normal 135-144 [facility] Comment on above: Performed By: #### C DP, CP ####[facility] [place] [address] Urea nitrogen 9 mg/dL Normal 6-20 [facility] Comment on above: Performed By: #### C DP, CP ####[facility] [place] [address] Albumin/Globulin Ratio NOT REPORTED Normal 1.0-2.5 [facility] Comment on above: Performed By: #### C DP, CP ####[facility] [facility] [place] [address] BUN/CRE Ratio NOT REPORTED Normal - [facility] Comment on above: Performed By: #### C DP, CP ####[facility] [facility] [place] [address] eGFR (non-black) NOT REPORTED Normal >60 [facility] Comment on above: Performed By: #### C DP, CP ####[facility] [facility] [place] [address] Staging: NOT REPORTED Normal [facility] Comment on above: Performed By: #### C DP, CP ####[facility] [place] [address] ED Noteon 11-15-2017 HIM IP Note OR Therapeutic Program Worker Normal [facility] HIM IP Note OR Therapeutic Program Worker Normal [facility] Basic Metabolic Profon 11-14 (cont.) Normal [facility] Comment on above: Result Comment: Aver age GFR for <20 years old not available.Chronic Kidney Disease: <60 mL/min/1.73sq mKidney failure: <15 mL/min/1.73sq meGFR calculated using average adult body mass. Additional eGFR calculator available at:[email or web address].htm Performed By: #### C BC, DAPHNE, CP, LIP, TSH, HCG ####[facility] [place] , [place] [id number] Anion gap 11 mmol/L Normal - [facility] Comment on above: Performed By: #### C BC, DAPHNE, CP, LIP, TSH, HCG ####[address] , [place] [address] BUN/CRE Ratio 18 Normal - [facility] Comment on above: Performed By: #### C BC, DAPHNE, CP, LIP, TSH, HCG ####[address] [place] [address] Calcium 9.2 mg/dL Normal 8.6-10.4 [facility] Comment on above: Performed By: #### C BC, DAPHNE, CP, LIP, TSH, HCG ####[address] , [facility]83 Chloride 101 mmol/L Normal 98-107 [facility] Comment on above: Performed By: #### C BC, DAPHNE, CP, LIP, TSH, HCG ####[address] , [facility]83 CO2 26 mmol/L Normal 20-31 [facility] Comment on above: Performed By: #### C BC, DAPHNE, CP, LIP, TSH, HCG ####[address] [place] [address] Creatinine 0.44 mg/dL Low 0.50-0.90 [facility] Comment on above: Performed By: #### C BC, DAPHNE, CP, LIP, TSH, HCG ####[address] , [facility]83 eGFR (non-black) Pediatric GFR requir es additional information. Refer to NKDEP website for Normal >60 [facility] Comment on above: Result Comment: calc ulator. Performed By: #### C BC, DAPHNE, CP, LIP, TSH, HCG ####[address] , [facility]83 Glucose mass conc 93 mg/dL Normal 70-99 [facility] Comment on above: Performed By: #### C BC, DAPHNE, CP, LIP, TSH, HCG ####[address] [place] [address] Potassium molar conc 4.2 mmol/L Normal 3.7-5.3 [facility] Comment on above: Performed By: #### C BC, DAPHNE, CP, LIP, TSH, HCG ####[address] [place] [address] Sodium 138 mmol/L Normal 135-144 [facility] Comment on above: Performed By: #### C BC, DAPHNE, CP, LIP, TSH, HCG ####[address] [place] [address] Staging: Normal [facility] Comment on above: Result Comment: Stag e 1: Some kidney damage normal GFRStage 2: Mild kidney damage GFR 60-89Stage 3: Moderate kidney damage GFR 30-59Stage 4: Severe kidney damage GFR 15-29Stage 5: Severe kidney damage GFR <15ESRD - chronic treatment by dialysis or transplantPerformed at [address] [place] [address] Performed By: #### C BC, DAPHNE, CP, LIP, TSH, HCG ####[address] [place] [address] Urea nitrogen 8 mg/dL Normal 6-20 [facility] Comment on above: Performed By: #### C BC, DAPHNE, CP, LIP, TSH, HCG ####[address] [place] [address] eGFR (non-black) NOT REPORTED Normal >60 [facility] Comment on above: Performed By: #### C BC, DAPHNE, CP, LIP, TSH, HCG ####[address] [place] [address] CBC with Diffon 11-14-2017 Abs. Basophil 0.10 k/uL Normal 0.0-0.2 [facility] Comment on above: Result Comment: Perf ormed at [address] [place] [address] Performed By: #### C BC, DAPHNE, CP, LIP, TSH, HCG ####[address] [place] [address] Abs.Neutrophil (Seg) 6.40 k/uL Normal 1.8-8.0 [facility] Comment on above: Performed By: #### C BC, DAPHNE, CP, LIP, TSH, HCG ####[address] , [facility]83 Basophils/100 WBC Auto (Bld) 1 % Normal 0-2 [facility] Comment on above: Performed By: #### C BC, DAPHNE, CP, LIP, TSH, HCG ####[address] [place] [address] Eosinophils 0.30 10*3/uL Normal 0.0-0.4 [facility] Comment on above: Performed By: #### C BC, DAPHNE, CP, LIP, TSH, HCG ####[address] , [place] [address] Eosinophils/100 leukocytes 3 % Normal 0-8 [facility] Comment on above: Performed By: #### C BC, DAPHNE, CP, LIP, TSH, HCG ####[address] , [place] [address] Erythrocyte distribution width Auto Ratio (RBC) 14.2 % Normal 12.1-15.2 [facility] Comment on above: Performed By: #### C BC, DAPHNE, CP, LIP, TSH, HCG ####[address] [place] [address] Erythrocytes (RBC) 4.88 10*6/uL Normal 4.0-5.2 [facility] Comment on above: Performed By: #### C BC, DAPHNE, CP, LIP, TSH, HCG ####[address] [place] [address] Hematocrit (HCT) 40.5 % Normal 36-46 [facility] Comment on above: Performed By: #### C BC, DAPHNE, CP, LIP, TSH, HCG ####[address] [address] Hemoglobin mass conc (Bld) 13.3 g/dL Normal 12.0-16.0 [facility] Comment on above: Performed By: #### C BC, DPAHNE, CP, LIP, TSH, HCG ####[address] , [facility]83 Lymphocytes 2.00 10*3/uL Normal 1.2-5.2 [facility] Comment on above: Performed By: #### C BC, DAPHNE, CP, LIP, TSH, HCG ####[address] , [place] [address] Lymphocytes/100 leukocytes 21 % Low 25-45 [facility] Comment on above: Performed By: #### C BC, DAPHNE, CP, LIP, TSH, HCG ####[address] , [place] [address] MCH 27.4 pg Normal 25-35 [facility] Comment on above: Performed By: #### C BC, DAPHNE, CP, LIP, TSH, HCG ####[address] , [place] [address] MCHC mass conc (RBC) 33.0 g/dL Normal 31-37 [facility] Comment on above: Performed By: #### C BC, DAPHNE, CP, LIP, TSH, HCG ####[address] , [place] [address] MCV 83.0 fL Normal 78-102 [facility] Comment on above: Performed By: #### C BC, DAPHNE, CP, LIP, TSH, HCG ####[address] , [place] [address] Monocytes 0.50 10*3/uL Normal 0.0-1.0 [facility] Comment on above: Performed By: #### C BC, DAPHNE, CP, LIP, TSH, HCG ####[address] [place] [address] Monocytes/100 leukocytes 6 % Normal 0-12 [facility] Comment on above: Performed By: #### C BC, DAPHNE, CP, LIP, TSH, HCG ####[address] [place] [address] Neutrophil (Seg) 69 % High 34-64 [facility] Comment on above: Performed By: #### C BC, DAPHNE, CP, LIP, TSH, HCG ####[address] , [facility]83 Platelet mean volume (PMV) 8.1 fL Normal 6.0-12.0 [facility] Comment on above: Performed By: #### C BC, DAPHNE, CP, LIP, TSH, HCG ####[address] [place] [address] Platelets 270 10*3/uL Normal 140-450 [facility] Comment on above: Performed By: #### C BC, DAPHNE, CP, LIP, TSH, HCG ####[address] [place] [address] WBC (Leukocytes) 9.3 10*3/uL Normal 4.5-13.5 [facility] Comment on above: Performed By: #### C BC, DAPHNE, CP, LIP, TSH, HCG ####[address] [place] [address] Auto Diff Performed NOT REPORTED Normal [facility] Comment on above: Performed By: #### C BC, DAPHNE, CP, LIP, TSH, HCG ####[address] [place] [address] Erythrocyte morphology NOT REPORTED Normal [facility] Comment on above: Performed By: #### C BC, DAPHNE, CP, LIP, TSH, HCG ####[address] [place] [address] Granulocytes/100 WBC (Bld) NOT REPORTED Normal 0.00-0.30 [facility] Comment on above: Performed By: #### C BC, DAPHNE, CP, LIP, TSH, HCG ####[address] [place] [address] Immature granulocytes #/vol (Bld) NOT REPORTED Normal 0 [facility] Comment on above: Performed By: #### C BC, DAPHNE, CP, LIP, TSH, HCG ####[address] [place] [address] Platelets NOT REPORTED Normal [facility] Comment on above: Performed By: #### C BC, DAPHNE, CP, LIP, TSH, HCG ####[address] , [facility]83 WBC Morphology NOT REPORTED Normal [facility] Comment on above: Performed By: #### C BC, DAPHNE, CP, LIP, TSH, HCG ####[address] , [facility]83 Drug Scr, Abuse, Uron 2016 Amphetamine(s),Ur Negative Normal NEG [facility] Comment on above: Performed By: #### C BC, DAPHNE, CP, LIP, TSH, HCG ####[address] , [facility]83 Barbiturate(s),Ur Negative Normal NEG [facility] Comment on above: Performed By: #### C BC, DAPHNE, CP, LIP, TSH, HCG ####[address] , [facility]83 Base excess Negative Normal NEG [facility] Comment on above: Performed By: #### C BC, DAPHNE, CP, LIP, TSH, HCG ####[address] [place] [address] Benzodiazepine(s) Positive Abnormal NEG [facility] Comment on above: Performed By: #### C BC, DAPHNE, CP, LIP, TSH, HCG ####[address] , [place] [address] Buprenorphrine, Ur Negative Normal NEG [facility] Comment on above: Result Comment: Perf ormed at [address] [place] [address] Performed By: #### C BC, DAPHNE, CP, LIP, TSH, HCG ####[address] , [facility]83 Cannabinoid(s),Ur Positive Abnormal NEG [facility] Comment on above: Performed By: #### C BC, DAPHNE, CP, LIP, TSH, HCG ####[address] , [place] [address] Methamphetamine, Ur Negative Normal [facility] Comment on above: Performed By: #### C BC, DAPHNE, CP, LIP, TSH, HCG ####[address] , [place] [address] Opiate(s), Ur Negative Normal [facility] Comment on above: Performed By: #### C BC, DAPHNE, CP, LIP, TSH, HCG ####[address] , [place] [address] Oxycodone, Urine Negative Normal [facility] Comment on above: Performed By: #### C BC, DAPHNE, CP, LIP, TSH, HCG ####[address] , [place] [address] Phencyclidine, Ur Negative Normal [facility] Comment on above: Performed By: #### C BC, DAPHNE, CP, LIP, TSH, HCG ####[address] , [place] [address] Propoxyphene,Urine Negative Normal [facility] Comment on above: Performed By: #### C BC, DAPHNE, CP, LIP, TSH, HCG ####[address] , [facility]83 Urine, methadone presence Negative Normal NEG [facility] Comment on above: Performed By: #### C BC, DAPHNE, CP, LIP, TSH, HCG ####[address] [place] [address] Urine, tricyclic antidepressants Negative Normal NEG [facility] Comment on above: Result Comment: Drug screen results are to be used for medical purposes only. All positive results are unconfirmed. Testing for employment or legal uses should be sent to a reference laboratory for confirmation. Performed By: #### C BC, DAPHNE, CP, LIP, TSH, HCG ####[address] [place] [address] Interpretive Info NOT REPORTED Normal [facility] Comment on above: Performed By: #### C BC, DAPHNE, CP, LIP, TSH, HCG ####[address] [place] [address] MDMA, Urine NOT REPORTED Normal NEG [facility] Comment on above: Performed By: #### C BC, DAPHNE, CP, LIP, TSH, HCG ####[address] [place] [address] ED Noteon 11-14-2017 HIM IP Note OR Therapeutic Program Worker Normal [facility] HIM IP Note OR Therapeutic Program Worker Normal [facility] HIM IP Note OR Therapeutic Program Worker Normal [facility] HIM IP Note OR Therapeutic Program Worker Normal [facility] ED Provider Noteon 7 HIM IP Note OR Therapeutic Program Worker Normal [facility] HCG, ,Urineon 11-14 HCG.beta subunit ( test) Ql (U) Negative Normal [facility] Comment on above: Result Comment: Perf ormed at [address] [place] [address] Performed By: #### C BC, DAPHNE, CP, LIP, TSH, HCG ####[address] [place] [address] Progress Noteon 11-14-2017 HIM IP Note OR Therapeutic Program Worker Normal [facility] Tox Scr, Bld, EDon 7 Toxic Tricyclic Sc,Bl Negative Normal NEG [facility] Comment on above: Result Comment: Perf ormed at [facility] [address] [place], [place] [id number] [phone] Performed By: #### C BC, DAPHNE, CP, LIP, TSH, HCG ####[address] [place] [address] Acetaminophen mass conc <10 Low 10-30 [facility] Comment on above: Result Comment: Perf ormed at [address] [place] [address] Performed By: #### C BC, DAPHNE, CP, LIP, TSH, HCG ####[address] [place] [address] Salicylate <1 Low 3-10 [facility] Comment on above: Result Comment: Perf ormed at [address] [place] [address] Performed By: #### C BC, DAPHNE, CP, LIP, TSH, HCG ####[address] [place] [address] Ethanol mg/dL Normal <10 [facility] Comment on above: Result Comment: Perf ormed at [address] [place] [address] Performed By: #### C BC, DAPHNE, CP, LIP, TSH, HCG ####[address] [place] [address] Ethanol percent <0.010 Normal [facility] Comment on above: Result Comment: Perf ormed at [address] [place] [address] Performed By: #### C BC, DAPHNE, CP, LIP, TSH, HCG ####[address] [place] [address] Group A Strep DNAon 09-20-20 17 Group A Strep DNA Specimen Description .THROAT SWAB Performed at [address] [place] [address] Special Requests NOT REPORTEDDirect Exam Negative: Specimen negative for Streptococcus pyogenes by DNA amplification. Performed at [address] [id number] [phone] Report Status FINAL 09/19/2017 [facility] Comment on above: Performed By: #### C BC, DAPHNE, CP, LIP, TSH, HCG ####[address] [place] [address] Cult,Urineon 09-19-2017 Cult,Urine Specimen Description .URINE Performed at [address] [place] [address] Special Requests .CLEAN CATCH URINE Performed at [address] [place] [address] Culture NO SIGNIFICANT GROWTH Performed at [address] [address] Report Status FINAL 09/19/2017 [facility] Comment on above: Performed By: #### C BC, DAPHNE, CP, LIP, TSH, HCG ####[address] [place] [address] CBC with Diffon 09-18-2017 Abs. Basophil 0.00 k/uL Normal 0.0-0.2 [facility] Comment on above: Result Comment: Perf ormed at [address] [place] [address] Performed By: #### C BC, DAPHNE, CP, LIP, TSH, HCG ####[address] [place] [address] Abs.Neutrophil (Seg) 10.00 k/uL High 1.8-8.0 [facility] Comment on above: Performed By: #### C BC, DAPHNE, CP, LIP, TSH, HCG ####[address] [place] [address] Basophils/100 WBC Auto (Bld) 0 % Normal [facility] Comment on above: Performed By: #### C BC, DAPHNE, CP, LIP, TSH, HCG ####[address] [place] [address] Eosinophils 0.10 10*3/uL Normal 0.0-0.4 [facility] Comment on above: Performed By: #### C BC, DAPHNE, CP, LIP, TSH, HCG ####[address] , [place] [address] Eosinophils/100 leukocytes 1 % Normal [facility] Comment on above: Performed By: #### C BC, DAPHNE, CP, LIP, TSH, HCG ####[address] , [facility]83 Erythrocyte distribution width Auto Ratio (RBC) 13.2 % Normal 12.1-15.2 [facility] Comment on above: Performed By: #### C BC, DAPHNE, CP, LIP, TSH, HCG ####[address] , [place] [address] Erythrocytes (RBC) 4.86 10*6/uL Normal 4.0-5.2 [facility] Comment on above: Performed By: #### C BC, DAPHNE, CP, LIP, TSH, HCG ####[address] , [facility]83 Hematocrit (HCT) 39.7 % Normal 36-46 [facility] Comment on above: Performed By: #### C BC, DAPHNE, CP, LIP, TSH, HCG ####[address] [place] [address] Hemoglobin mass conc (Bld) 13.2 g/dL Normal 12.0-16.0 [facility] Comment on above: Performed By: #### C BC, DAPHNE, CP, LIP, TSH, HCG ####[address] , [facility]83 Lymphocytes 1.60 10*3/uL Normal 1.2-5.2 [facility] Comment on above: Performed By: #### C BC, DAPHNE, CP, LIP, TSH, HCG ####[address] [place] [address] Lymphocytes/100 leukocytes 13 % Normal [facility] Comment on above: Performed By: #### C BC, DAPHNE, CP, LIP, TSH, HCG ####[address] , [place] [address] MCH 27.2 pg Normal 25-35 [facility] Comment on above: Performed By: #### C BC, DAPHNE, CP, LIP, TSH, HCG ####[address] , [facility]83 MCHC mass conc (RBC) 33.3 g/dL Normal 31-37 [facility] Comment on above: Performed By: #### C BC, DAPHNE, CP, LIP, TSH, HCG ####[address] , [facility]83 MCV 81.7 fL Normal 78-102 [facility] Comment on above: Performed By: #### C BC, DAPHNE, CP, LIP, TSH, HCG ####[address] [place] [address] Monocytes 0.50 10*3/uL Normal 0.2-0.8 [facility] Comment on above: Performed By: #### C BC, DAPHNE, CP, LIP, TSH, HCG ####[address] , [facility] Monocytes/100 leukocytes 4 % Normal [facility] Comment on above: Performed By: #### C BC, DAPHNE, CP, LIP, TSH, HCG ####[address] [place] [address] Neutrophil (Seg) 82 % Normal [facility] Comment on above: Performed By: #### C BC, DAPHNE, CP, LIP, TSH, HCG ####[address] , [place] [address] Platelet mean volume (PMV) 8.2 fL Normal 6.0-12.0 [facility] Comment on above: Performed By: #### C BC, DAPHNE, CP, LIP, TSH, HCG ####[address] , [facility]83 Platelets 302 10*3/uL Normal 140-450 [facility] Comment on above: Performed By: #### C BC, DAPHNE, CP, LIP, TSH, HCG ####[address] , [place] [address] WBC (Leukocytes) 12.2 10*3/uL Normal 4.5-13.5 [facility] Comment on above: Performed By: #### C BC, DAPHNE, CP, LIP, TSH, HCG ####[address] , [place] [address] Auto Diff Performed NOT REPORTED Normal [facility] Comment on above: Performed By: #### C BC, DAPHNE, CP, LIP, TSH, HCG ####[address] , [place] [address] Erythrocyte morphology NOT REPORTED Normal [facility] Comment on above: Performed By: #### C BC, DAPHNE, CP, LIP, TSH, HCG ####[address] , [place] [address] Granulocytes/100 WBC (Bld) NOT REPORTED Normal 0.00-0.30 [facility] Comment on above: Performed By: #### C BC, DAPHNE, CP, LIP, TSH, HCG ####[address] [place] [address] Immature granulocytes #/vol (Bld) NOT REPORTED Normal 0 [facility] Comment on above: Performed By: #### C BC, DAPHNE, CP, LIP, TSH, HCG ####[address] [place] [address] Platelets NOT REPORTED Normal [facility] Comment on above: Performed By: #### C BC, DAPHNE, CP, LIP, TSH, HCG ####[address] [place] [address] WBC Morphology NOT REPORTED Normal [facility] Comment on above: Performed By: #### C BC, DAPHNE, CP, LIP, TSH, HCG ####[address] [place] [address] CT HEAD WO CONTRASTon 2016 CT [...] by:KRISTY Kiserigned by:Jaime Noble MD09/18/17Final result Normal [facility] Comp Metabolic Profon 2016 (cont.) Normal [facility] Comment on above: Result Comment: Aver age GFR for <20 years old not available.Chronic Kidney Disease: <60 mL/min/1.73sq mKidney failure: <15 mL/min/1.73sq meGFR calculated using average adult body mass. Additional eGFR calculator available at:[email or web address]_[email or web address].htm Performed By: #### C BC, DAPHNE, CP, LIP, TSH, HCG ####[address] [place] [address] Alanine aminotransferase (ALT) 11 U/L Normal 5-33 [facility] Comment on above: Performed By: #### C BC, DAPHNE, CP, LIP, TSH, HCG ####[address] [place] [address] Albumin 4.1 g/dL Normal 3.5-5.2 [facility] Comment on above: Performed By: #### C BC, DAPHNE, CP, LIP, TSH, HCG ####[address] [place] [address] Albumin/Globulin Ratio 1.1 {ratio} Normal 1.0-2.5 [facility] Comment on above: Performed By: #### C BC, DAPHNE, CP, LIP, TSH, HCG ####[address] [place] [address] Alkaline Phos 87 U/L Normal 35-104 [facility] Comment on above: Performed By: #### C BC, DAPHNE, CP, LIP, TSH, HCG ####[address] [place] [address] Anion gap 11 mmol/L Normal 9-17 [facility] Comment on above: Performed By: #### C BC, DAPHNE, CP, LIP, TSH, HCG ####[address] [place] [address] Aspartate aminotransferase (AST) 13 U/L Normal <32 [facility] Comment on above: Performed By: #### C BC, DAPHNE, CP, LIP, TSH, HCG ####[address] [place] [address] Bilirubin Ql (U) 0.26 mg/dL Low 0.3-1.2 [facility] Comment on above: Performed By: #### C BC, DAPHNE, CP, LIP, TSH, HCG ####[address] [place] [address] BUN/CRE Ratio 10 Normal 9-20 [facility] Comment on above: Performed By: #### C BC, DAPHNE, CP, LIP, TSH, HCG ####[address] [place] [address] Calcium 9.1 mg/dL Normal 8.6-10.4 [facility] Comment on above: Performed By: #### C BC, DAPHNE, CP, LIP, TSH, HCG ####[address] [place] [address] Chloride 101 mmol/L Normal 98-107 [facility] Comment on above: Performed By: #### C BC, DAPHNE, CP, LIP, TSH, HCG ####[address] [place] [address] CO2 27 mmol/L Normal 20-31 [facility] Comment on above: Performed By: #### C BC, DAPHNE, CP, LIP, TSH, HCG ####[address] [place] [address] Creatinine 0.58 mg/dL Normal 0.50-0.90 [facility] Comment on above: Performed By: #### C BC, DAPHNE, CP, LIP, TSH, HCG ####[address] [place] [address] eGFR (non-black) Pediatric GFR requir es additional information. Refer to NKDEP website for Normal >60 [facility] Comment on above: Result Comment: calc ulator. Performed By: #### C BC, DAPHNE, CP, LIP, TSH, HCG ####[address] [place] [address] Glucose mass conc 83 mg/dL Normal 70-99 [facility] Comment on above: Performed By: #### C BC, DAPHNE, CP, LIP, TSH, HCG ####[address] [place] [address] Potassium molar conc 3.7 mmol/L Normal 3.7-5.3 [facility] Comment on above: Performed By: #### C BC, DAPHNE, CP, LIP, TSH, HCG ####[address] [place] [address] Protein 7.8 g/dL Normal 6.4-8.3 [facility] Comment on above: Performed By: #### C BC, DAPHNE, CP, LIP, TSH, HCG ####[address] [place] [address] Sodium 139 mmol/L Normal 135-144 [facility] Comment on above: Performed By: #### C BC, DAPHNE, CP, LIP, TSH, HCG ####[address] [place] [address] Staging: Normal [facility] Comment on above: Result Comment: Stag e 1: Some kidney damage normal GFRStage 2: Mild kidney damage GFR 60-89Stage 3: Moderate kidney damage GFR 30-59Stage 4: Severe kidney damage GFR 15-29Stage 5: Severe kidney damage GFR <15ESRD - chronic treatment by dialysis or transplantPerformed at [address] [place] [address] Performed By: #### C BC, DAPHNE, CP, LIP, TSH, HCG ####[address] [place] [address] Urea nitrogen 6 mg/dL Normal 6-20 [facility] Comment on above: Performed By: #### C BC, DAPHNE, CP, LIP, TSH, HCG ####[address] [place] [address] eGFR (non-black) NOT REPORTED Normal >60 [facility] Comment on above: Performed By: #### C BC, DAPHNE, CP, LIP, TSH, HCG ####[address] [place] [address] Drug Scr, Abuse, Uron 2016 Amphetamine(s),Ur Negative Normal NEG [facility] Comment on above: Performed By: #### C BC, DAPHNE, CP, LIP, TSH, HCG ####[address] [place] [address] Barbiturate(s),Ur Negative Normal [facility]G [facility] Comment on above: Performed By: #### C BC, DAPHNE, CP, LIP, TSH, HCG ####[address] [place] [address] Base excess Negative Normal [facility]G [facility] Comment on above: Performed By: #### C BC, DAPHNE, CP, LIP, TSH, HCG ####[address] [place] [address] Benzodiazepine(s) Negative Normal [facility]G [facility] Comment on above: Performed By: #### C BC, DAPHNE, CP, LIP, TSH, HCG ####[address] [place] [address] Buprenorphrine, Ur Negative Normal [facility] Comment on above: Result Comment: Perf ormed at [address] [place] [address] Performed By: #### C BC, DAPHNE, CP, LIP, TSH, HCG ####[address] [place] [address] Cannabinoid(s),Ur Positive Abnormal [facility] Comment on above: Performed By: #### C BC, DAPHNE, CP, LIP, TSH, HCG ####[address] [place] [address] Methamphetamine, Ur Negative Normal [facility] Comment on above: Performed By: #### C BC, DAPHNE, CP, LIP, TSH, HCG ####[address] [place] [address] Opiate(s), Ur Negative Normal [facility] Comment on above: Performed By: #### C BC, DAPHNE, CP, LIP, TSH, HCG ####[address] [place] [address] Oxycodone, Urine Negative Normal [facility]G [facility] Comment on above: Performed By: #### C BC, DAPHNE, CP, LIP, TSH, HCG ####[address] [place] [address] Phencyclidine, Ur Negative Normal [facility]G [facility] Comment on above: Performed By: #### C BC, DAPHNE, CP, LIP, TSH, HCG ####[address] [place] [address] Propoxyphene,Urine Negative Normal [facility]G [facility] Comment on above: Performed By: #### C BC, DAPHNE, CP, LIP, TSH, HCG ####[address] [place] [address] Urine, methadone presence Negative Normal [facility]G [facility] Comment on above: Performed By: #### C BC, DAPHNE, CP, LIP, TSH, HCG ####[address] [place] [address] Urine, tricyclic antidepressants Negative Normal [facility] Comment on above: Result Comment: Drug screen results are to be used for medical purposes only. All positive results are unconfirmed. Testing for employment or legal uses should be sent to a reference laboratory for confirmation. Performed By: #### C BC, DAPHNE, CP, LIP, TSH, HCG ####[address] [place] [address] Interpretive Info NOT REPORTED Normal [facility] Comment on above: Performed By: #### C BC, DAPHNE, CP, LIP, TSH, HCG ####[address] [place] [address] MDMA, Urine NOT REPORTED Normal [facility] Comment on above: Performed By: #### C BC, DAPHNE, CP, LIP, TSH, HCG ####[address] [place] [address] ED Provider Noteon 7 HIM IP Note OR Therapeutic Program Worker [facility] Flu A/B Ag Detectionon 09-18 Flu A/B Ag Detection Specimen Descriptio n .NASOPHARYNGEAL SWABSpecial Requests NOT REPORTEDDirect Exam Presumptive negative for the presence of Influenza A and Influenza B antigen. PCR confirmation of negative results is recommended, since the antigen present in the specimen may be below the detection limit of the test. Performed at [address] [place] [address] Report Status FINAL 09/18/2017 [facility] Comment on above: Performed By: #### C BC, DAPHNE, CP, LIP, TSH, HCG ####[address] [place] [address] HCG, ,Urineon 09-18 HCG.beta subunit ( test) Ql (U) Negative Normal [facility] Comment on above: Result Comment: Perf ormed at [address] [place] [address] Performed By: #### C BC, DAPHNE, CP, LIP, TSH, HCG ####[address] [place] [address] Mononucleosis Screenon 09-18 Monocytes Negative Normal [facility]G [facility] Comment on above: Result Comment: Perf ormed at [address] [place] [address] Performed By: #### C BC, DAPHNE, CP, LIP, TSH, HCG ####[address] [place] [address] Strep Gr A Direct Agon 09-18 Rapid strep test Specimen Description .THROATSpecial Requests NOT REPORTEDDirect Exam Rapid Strep A negative. A negative Rapid Group A Strep Screen result does not rule out the possibility of Group A Streptococci in the specimen. A Group A strep DNA test will be performed. Performed at [address] [place] [address] Report Status FINAL 09/18/2017 [facility] Comment on above: Performed By: #### C BC, DAPHNE, CP, LIP, TSH, HCG ####[address] [place] [address] UA w/Reflex Cultureon 2016 Acetaminophen mass conc Negative Normal [facility]G [facility] Comment on above: Performed By: #### C BC, DAPHNE, CP, LIP, TSH, HCG ####[address] [place] [address] Bilirubin (direct) Negative Normal [facility]G [facility] Comment on above: Performed By: #### C BC, DAPHNE, CP, LIP, TSH, HCG ####[address] [place] [address] Hemoglobin mass conc (Bld) Negative Normal [facility] Comment on above: Performed By: #### C BC, DAPHNE, CP, LIP, TSH, HCG ####[address] [place] [address] Nitrite,Ur Negative Normal [facility] Comment on above: Performed By: #### C BC, DAPHNE, CP, LIP, TSH, HCG ####[address] [place] [address] Turbidity CLEAR Normal CLEAR [facility] Comment on above: Performed By: #### C BC, DAPHNE, CP, LIP, TSH, HCG ####[address] [place] [address] Urine, color YELLOW Normal [facility] Comment on above: Performed By: #### C BC, DAPHNE, CP, LIP, TSH, HCG ####[address] [place] [address] Urine, glucose presence Negative Normal [facility]G [facility] Comment on above: Performed By: #### C BC, DAPHNE, CP, LIP, TSH, HCG ####[address] [place] [address] Urine, leukocyte esterase presence TRACE Abnormal [facility] Comment on above: Result Comment: Perf ormed at [address] [place] [address] Performed By: #### C BC, DAPHNE, CP, LIP, TSH, HCG ####[address] [place] [address] Urine, pH 8.0 [pH] Normal 5.0-9.0 [facility] Comment on above: Performed By: #### C BC, DAPHNE, CP, LIP, TSH, HCG ####[address] [place] [address] Urine, protein presence Negative Normal [facility]G [facility] Comment on above: Performed By: #### C BC, DAPHNE, CP, LIP, TSH, HCG ####[address] [place] [address] Urine, specific gravity 1.015 Normal 1.010-1.020 [facility] Comment on above: Performed By: #### C BC, DAPHNE, CP, LIP, TSH, HCG ####[address] [place] [address] Urobilinogen,Ur Normal Normal NORM [facility] Comment on above: Performed By: #### C BC, DAPHNE, CP, LIP, TSH, HCG ####[address] [place] [address] Comment NOT REPORTED Normal [facility] Comment on above: Performed By: #### C BC, DAPHNE, CP, LIP, TSH, HCG ####[address] [place] [address] Urinalysis,Microon 7 ----- Normal [facility] Comment on above: Performed By: #### C BC, DAPHNE, CP, LIP, TSH, HCG ####[address] [place] [address] Mucus Strands 1+ Abnormal NONE [facility] Comment on above: Performed By: #### C BC, DAPHNE, CP, LIP, TSH, HCG ####[address] [place] [address] Trichomonas PRESENCE NOTED Abnormal [facility] Comment on above: Result Comment: Perf ormed at [address] [place] [address] Performed By: #### C BC, DAPHNE, CP, LIP, TSH, HCG ####[address] [place] [address] Urine WBC's 2 TO 5 Normal 0-5 [facility] Comment on above: Performed By: #### C BC, DAPHNE, CP, LIP, TSH, HCG ####[address] [place] [address] Urine, bacteria in sediment TRACE Abnormal NONE [facility] Comment on above: Performed By: #### C BC, DAPHNE, CP, LIP, TSH, HCG ####[address] [place] [address] Urine, epithelial cells in sediment 10 TO 20 Normal 0-25 [facility] Comment on above: Performed By: #### C BC, DAPHNE, CP, LIP, TSH, HCG ####[address] [place] [address] Urine, erythrocytes 0 TO 2 Normal 0-2 [facility] Comment on above: Performed By: #### C BC, DAPHNE, CP, LIP, TSH, HCG ####[address] [place] [address] Epithelial, Renal NOT REPORTED Normal 0 [facility] Comment on above: Performed By: #### C BC, DAPHNE, CP, LIP, TSH, HCG ####[address] [place] [address] Other Observations NOT REPORTED [facility] Comment on above: Performed By: #### C BC, DAPHNE, CP, LIP, TSH, HCG ####[address] [place] [address] Urine, amorphous sediment presence in sediment NOT REPORTED Normal NONE [facility] Comment on above: Performed By: #### C BC, DAPHNE, CP, LIP, TSH, HCG ####[address] [place] [address] Urine, casts in sediment NOT REPORTED Normal [facility] Comment on above: Performed By: #### C BC, DAPHNE, CP, LIP, TSH, HCG ####[address] [place] [address] Urine, crystals in sediment NOT REPORTED Normal NONE [facility] Comment on above: Performed By: #### C BC, DAPHNE, CP, LIP, TSH, HCG ####[address] [place] [address] Urine, yeast presence in sediment NOT REPORTED Normal NONE [facility] Comment on above: Performed By: #### C BC, DAPHNE, CP, LIP, TSH, HCG ####[address] [place] [address] CT ABDOMEN PELVIS WO IV CONT Padmini 07-21-2017 CT ABDOMEN PELVIS WO IV CONTRAST [...] by:KRISTY Cervantesigned by:Sean Mayfield MD07/21/17Final result Normal [facility] ED Provider Noteon 7 HIM IP Note OR Therapeutic Program Worker Normal [facility] Flu A/B Ag Detectionon 07-21 Flu A/B Ag Detection Specimen Descriptio n .NARESSpecial Requests NOT REPORTEDDirect Exam Presumptive negative for the presence of Influenza A and Influenza B antigen. PCR confirmation of negative results is recommended, since the antigen present in the specimen may be below the detection limit of the test. Performed at [address] [place] [address] ([phone] Report Status FINAL 07/21/2017 [facility] Comment on above: Performed By: #### F LUAD ####[address] [place] [address] Strep Gr A Direct Agon 07-21 Strep Gr A Direct Ag Specimen Descriptio n .THROATSpecial Requests NOT REPORTEDDirect Exam POSITIVE for Group A Streptococci Performed at [address] [place], [place] [address] [phone] Report Status FINAL 07/21/2017 [facility] Comment on above: Performed By: #### S GPA ####[address] [id number] Urinalysis w/ Microon 2016 ----- Normal [facility] Comment on above: Performed By: #### U AMIC ####[address] [place] [address] Acetaminophen mass conc Negative Normal [facility] Comment on above: Performed By: #### U AMIC ####[address] [place] [address] Bilirubin (direct) Negative Normal [facility]G [facility] Comment on above: Performed By: #### U AMIC ####[address] [place] [address] Hemoglobin mass conc (Bld) Negative Normal NEG [facility] Comment on above: Performed By: #### U AMIC ####[address] [place] [address] Mucus Strands 3+ Abnormal NONE [facility] Comment on above: Result Comment: Perf ormed at [address] [place] [address] Performed By: #### U AMIC ####[address] [place] [address] Nitrite,Ur Negative Normal [facility]G [facility] Comment on above: Performed By: #### U AMIC ####[address] [place] [address] Turbidity CLEAR Normal CLEAR [facility] Comment on above: Performed By: #### U AMIC ####[address] [place] [address] Urine WBC's 0 TO 2 Normal 0-5 [facility] Comment on above: Performed By: #### U AMIC ####[address] [place] [address] Urine, bacteria in sediment 1+ Abnormal NONE [facility] Comment on above: Performed By: #### U AMIC ####[address] [place] [address] Urine, color YELLOW Normal YEL [facility] Comment on above: Performed By: #### U AMIC ####[address] [place] [address] Urine, epithelial cells in sediment 5 TO 10 Normal 0-25 [facility] Comment on above: Performed By: #### U AMIC ####[address] [place] [address] Urine, erythrocytes 0 TO 2 Normal 0-2 [facility] Comment on above: Performed By: #### U AMIC ####[address] [place] [address] Urine, glucose presence Negative Normal [facility]G [facility] Comment on above: Performed By: #### U AMIC ####[address] [place] [address] Urine, leukocyte esterase presence Negative Normal [facility]G [facility] Comment on above: Performed By: #### U AMIC ####[address] [place] [address] Urine, pH 6.0 [pH] Normal 5.0-9.0 [facility] Comment on above: Performed By: #### U AMIC ####[address] [place] [address] Urine, protein presence TRACE Abnormal [facility] Comment on above: Performed By: #### U AMIC ####[address] [place] [address] Urine, specific gravity 1.025 High 1.010-1.020 [facility] Comment on above: Performed By: #### U AMIC ####[address] [place] [address] Urobilinogen,Ur Normal Normal NORM [facility] Comment on above: Performed By: #### U AMIC ####[address] [place] [address] Comment NOT REPORTED Normal [facility] Comment on above: Performed By: #### U AMIC ####[address] [place] [address] Epithelial, Renal NOT REPORTED Normal 0 [facility] Comment on above: Performed By: #### U AMIC ####[address] [place] [address] Other Observations NOT REPORTED [facility] Comment on above: Performed By: #### U AMIC ####[address] [place] [address] Trichomonas NOT REPORTED Normal NONE [facility] Comment on above: Performed By: #### U AMIC ####[address] [place] [address] Urine, amorphous sediment presence in sediment NOT REPORTED Normal NONE [facility] Comment on above: Performed By: #### U AMIC ####[address] [place] [address] Urine, casts in sediment NOT REPORTED Normal [facility] Comment on above: Performed By: #### U AMIC ####[address] [place] [address] Urine, crystals in sediment NOT REPORTED Normal [facility] Comment on above: Performed By: #### U AMIC ####[address] [place] [address] Urine, yeast presence in sediment NOT REPORTED Normal NONE [facility] Comment on above: Performed By: #### U AMIC ####[address] [place] [address] Amylaseon 07-18-2017 Amylase 44 U/L Normal 28-100 [facility] Comment on above: Result Comment: Perf ormed at [address] [place] [address] Performed By: #### C BC, DAPHNE, CP, LIP, TSH, HCG ####[address] , [facility]83 CBCon 07-18-2017 Erythrocyte distribution width Auto Ratio (RBC) 14.5 % Normal 12.1-15.2 [facility] Comment on above: Performed By: #### C BC, DAPHNE, CP, LIP, TSH, HCG ####[address] , [facility] Erythrocytes (RBC) 4.79 10*6/uL Normal 4.0-5.2 [facility] Comment on above: Performed By: #### C BC, DAPHNE, CP, LIP, TSH, HCG ####[address] , [facility] Hematocrit (HCT) 39.1 % Normal 36-46 [facility] Comment on above: Performed By: #### C BC, DAPHNE, CP, LIP, TSH, HCG ####[address] , [facility] Hemoglobin mass conc (Bld) 12.9 g/dL Normal 12.0-16.0 [facility] Comment on above: Performed By: #### C BC, DAPHNE, CP, LIP, TSH, HCG ####[address] , [facility] MCH 26.9 pg Normal 25-35 [facility] Comment on above: Performed By: #### C BC, DAPHNE, CP, LIP, TSH, HCG ####[address] [place] [address] MCHC mass conc (RBC) 32.9 g/dL Normal 31-37 [facility] Comment on above: Performed By: #### C BC, DAPHNE, CP, LIP, TSH, HCG ####[address] , [facility]83 MCV 81.6 fL Normal 78-102 [facility] Comment on above: Performed By: #### C BC, DAPHNE, CP, LIP, TSH, HCG ####[address] [place] [address] Platelet mean volume (PMV) 8.3 fL Normal 6.0-12.0 [facility] Comment on above: Result Comment: Perf ormed at [address] [place] [address] Performed By: #### C BC, DAPHNE, CP, LIP, TSH, HCG ####[address] [place] [address] Platelets 268 10*3/uL Normal 140-450 [facility] Comment on above: Performed By: #### C BC, DAPHNE, CP, LIP, TSH, HCG ####[address] [place] [address] WBC (Leukocytes) 7.7 10*3/uL Normal 4.5-13.5 [facility] Comment on above: Performed By: #### C BC, DAPHNE, CP, LIP, TSH, HCG ####[address] [place] [address] Comp Metabolic Profon 2016 (cont.) Normal [facility] Comment on above: Result Comment: Aver age GFR for <20 years old not available.Chronic Kidney Disease: <60 mL/min/1.73sq mKidney failure: <15 mL/min/1.73sq meGFR calculated using average adult body mass. Additional eGFR calculator available at:http://[email or web address].com/multiple_crcl_2012.htm Performed By: #### C BC, DAPHNE, CP, LIP, TSH, HCG ####[address] [place] [address] Alanine aminotransferase (ALT) 20 U/L Normal 5-33 [facility] Comment on above: Performed By: #### C BC, DAPHNE, CP, LIP, TSH, HCG ####[address] , [facility] Albumin 4.1 g/dL Normal 3.5-5.2 [facility] Comment on above: Performed By: #### C BC, DAPHNE, CP, LIP, TSH, HCG ####[address] [place] [address] Albumin/Globulin Ratio 1.3 {ratio} Normal 1.0-2.5 [facility] Comment on above: Performed By: #### C BC, DAPHNE, CP, LIP, TSH, HCG ####[address] , [place] [address] Alkaline Phos 71 U/L Normal 35-104 [facility] Comment on above: Performed By: #### C BC, DAPHNE, CP, LIP, TSH, HCG ####[address] , [place] [address] Anion gap 12 mmol/L Normal 9-17 [facility] Comment on above: Performed By: #### C BC, DAPHNE, CP, LIP, TSH, HCG ####[address] , [place] [address] Aspartate aminotransferase (AST) 20 U/L Normal <32 [facility] Comment on above: Performed By: #### C BC, DAPHNE, CP, LIP, TSH, HCG ####[address] , [place] [address] Bilirubin Ql (U) 0.43 mg/dL Normal 0.3-1.2 [facility] Comment on above: Performed By: #### C BC, DAPHNE, CP, LIP, TSH, HCG ####[address] , [place] [address] BUN/CRE Ratio 15 Normal 9-20 [facility] Comment on above: Performed By: #### C BC, DAPHNE, CP, LIP, TSH, HCG ####[address] [place] [address] Calcium 9.1 mg/dL Normal 8.6-10.4 [facility] Comment on above: Performed By: #### C BC, DAPHNE, CP, LIP, TSH, HCG ####[address] [place] [address] Chloride 106 mmol/L Normal 98-107 [facility] Comment on above: Performed By: #### C BC, DAPHNE, CP, LIP, TSH, HCG ####[address] [place] [address] CO2 24 mmol/L Normal 20-31 [facility] Comment on above: Performed By: #### C BC, DAPHNE, CP, LIP, TSH, HCG ####[address] [place] [address] Creatinine 0.53 mg/dL Normal 0.50-0.90 [facility] Comment on above: Performed By: #### C BC, DAPHNE, CP, LIP, TSH, HCG ####[address] [place] [address] eGFR (non-black) Pediatric GFR requir es additional information. Refer to NKDEP website for Normal >60 [facility] Comment on above: Result Comment: calc ulator. Performed By: #### C BC, DAPHNE, CP, LIP, TSH, HCG ####[address] [place] [address] Glucose mass conc 95 mg/dL Normal 70-99 [facility] Comment on above: Performed By: #### C BC, DAPHNE, CP, LIP, TSH, HCG ####[address] [place] [address] Potassium molar conc 4.3 mmol/L Normal 3.7-5.3 [facility] Comment on above: Performed By: #### C BC, DAPHNE, CP, LIP, TSH, HCG ####[address] [place] [address] Protein 7.3 g/dL Normal 6.4-8.3 [facility] Comment on above: Performed By: #### C BC, DAPHNE, CP, LIP, TSH, HCG ####[address] [place] [address] Sodium 142 mmol/L Normal 135-144 [facility] Comment on above: Performed By: #### C BC, DAPHNE, CP, LIP, TSH, HCG ####[address] [place] [address] Staging: Normal [facility] Comment on above: Result Comment: Stag e 1: Some kidney damage normal GFRStage 2: Mild kidney damage GFR 60-89Stage 3: Moderate kidney damage GFR 30-59Stage 4: Severe kidney damage GFR 15-29Stage 5: Severe kidney damage GFR <15ESRD - chronic treatment by dialysis or transplantPerformed at [address] [place] [address] Performed By: #### C BC, DAPHNE, CP, LIP, TSH, HCG ####[address] [place] [address] Urea nitrogen 8 mg/dL Normal 6-20 [facility] Comment on above: Performed By: #### C BC, DAPHNE, CP, LIP, TSH, HCG ####[address] [place] [address] eGFR (non-black) NOT REPORTED Normal >60 [facility] Comment on above: Performed By: #### C BC, DAPHNE, CP, LIP, TSH, HCG ####[address] [place] [address] HCG Screen, Bloodon 07-18- 17 HCG Qn Negative Normal NEG [facility] Comment on above: Result Comment: Perf ormed at [address] [place] [address] Performed By: #### C BC, DAPHNE, CP, LIP, TSH, HCG ####[address] [id number] Lipaseon 07-18-2017 Lipase 31 U/L Normal 13-60 [facility] Comment on above: Result Comment: Perf ormed at [address] [place] [address] Performed By: #### C BC, DAPHNE, CP, LIP, TSH, HCG ####[address] [place] [address] Thyroid Stim. Horm.on 2016 Thyroid stimulating hormone (TSH) 1.32 m[IU]/L Normal 0.30-5.00 [facility] Comment on above: Result Comment: Perf ormed at [address] [place] [address] Performed By: #### C BC, DAPHNE, CP, LIP, TSH, HCG ####[address] [id number] XR ACUTE ABD SERIES CHEST 1 VWon [...] by:KRISTY Inmanigned by:Xochilt Louie MD07/18/17Final result Normal [facility] Vital Signs Date Time Vital Sign Value Performing Clinician Facility 04-23-2023 10:00-0400 Body height 162.56 cm [facility] Other [facility] Other 04-23-2023 10:00-0400 Body mass index (BMI) [Ratio] 38.27 kg/m2 Imad Asaad Other [facility] [facility] Other 04-23-2023 10:00-0400 Body weight 101.15 kg Imad Asaad Other [facility] [facility] Other 04-23-2023 10:00-0400 Diastolic blood pressure 62 mm[Hg] Imad Asaad Other [facility] Other 04-23-2023 10:00-0400 Systolic blood pressure 105 mm[Hg] Imad Asaad Other [facility] Other 02-05-2023 10:00-0400 Body height 162.56 cm Imad Asaad Other [facility] [facility] Other 02-05-2023 10:00-0400 Body mass index (BMI) [Ratio] 40.85 kg/m2 Imad Asaad Other [facility] [facility] Other 02-05-2023 10:00-0400 Body weight 107.96 kg Imad Asaad Other [facility] [facility] Other 02-05-2023 10:00-0400 Diastolic blood pressure 61 mm[Hg] Imad Asaad Other [facility] [facility] Other 02-05-2023 10:00-0400 Systolic blood pressure 104 mm[Hg] Imad Asaad Other [facility] [facility] Other Encounters Encounter Date Encounter Type Care Provider Facility Start: 05-16-2024 End: 05-16-2024 ambulatory HAMIDA YOSSI Not Available Start: 03-17-2024 End: 03-17-2024 ambulatory HAMIDA YOSSI Not Available Start: 04-23-2023 End: 04-23-2023 ambulatory Imad Asaad Other [employer] Other Start: 04-23-2023 Office outpatient visit 15 minutes Imad Asaad [facility] Start: 03-16-2023 End: 03-16-[address] HAMIDA SY . Facility:[facility] Start: 02-24-2023 End: 02-24-2023 ambulatory Imad Asaad Facility:[facility] Start: 02-24-2023 End: 02-24-2023 ambulatory DO Cathryn Rumschlag Work Phone: [facility] Work Phone: Start: 02-24-2023 End: 02-24-2023 Patient encounter procedure DO Cathryn Rumschlag Work Phone: [facility] Work Phone: Start: 02-19-2023 End: 02-19-2023 ambulatory Cathryn Rumschlag Facility:[facility] Start: 02-19-2023 End: 02-19-2023 Patient encounter procedure DO Cathryn Rumschlag Work Phone: [facility] Work Phone: Start: 02-05-2023 End: 02-05-2023 ambulatory Imad Asaad Other [employer] Other Start: 02-05-2023 Office outpatient ne w [...] Evaluation and management of inpatient KALIN MCKEON [facility] Start: 11-14-2017 End: 11-15-2017 Emergency department patient visit [facility] Start: 09-18-2017 End: 09-18-2017 Emergency department patient visit ABDIFATAH Sellers [facility] Start: 07-21-2017 End: 07-21-2017 Emergency department patient visit LILA GOMEZ [facility] Start: 07-18-2017 End: 07-19-2017 Ambulatory ABDIFATAH Sellers [facility] Procedures Date Procedure Procedure Detail Performing Clinician Start: 02-24-2023 Ultrasound elastogra phy of liver DO Cathryn Rumschlag Work Phone: Start: 02-19-2023 Ultrasonography of liver DO Cathryn Rumschlag Work Phone: Start: 11-17-2017 DISCHARGE PATIENT FRANKY MCKEON Start: 11-16-2017 CBC WITH AUTO DIFFERENTIAL KALIN MCKEON Start: 11-16-2017 COMPREHENSIVE METABO LIC PANEL KALIN MCKEON Start: 11-15-2017 DIET GENERAL KALIN PHYSICAL SECURITY ENGINEER Start: 11-15-2017 FULL CODE KALIN [employer]ICAL SECURITY ENGINEER Start: 11-15-2017 IP CONSULT TO HISTOR Y AND PHYSICAL KALIN MCKEON Start: 11-15-2017 PATIENT STATUS (DIRECT) KALIN MCKEON Start: 11-15-2017 VITAL SIGNS KALIN PHYSICAL SECURITY ENGINEER Start: 11-14-2017 , URINE ABDIFATAH CHANDU Start: 11-14-2017 URINE DRUG SCREEN REAGA N CHANDU Start: 11-14-2017 CBC WITH AUTO DIFFERENTIAL ABDIFATAH CHANDU Start: 11-14-2017 BASIC METABOLIC PANEL R PETRONA CHANDU Start: 11-14-2017 TOX SCR, BLD, ED ABDIFATAH CHANDU Start: 11-14-2017 ED NURSING COMMUNICATION ABDIFATAH SCHOFIELD Start: 11-14-2017 SUICIDE PRECAUTIONS JORGITO KATI CHANDU Start: 09-18-2017 STREP SCREEN GROUP A THROAT ABDIFATAH SCHOFIELD Start: 09-18-2017 STREP A DNA PROBE, AMPLIFICATION ABDIFATAH SCHOFIELD Start: 09-18-2017 Ct head/brain w/o co ntrast material ABDIFATAH SCHOFIELD Start: 09-18-2017 CBC WITH AUTO DIFFERENTIAL ABDIFATAH BRISTOL Start: 09-18-2017 COMPREHENSIVE METABO LIC PANEL ABDIFATAH BRISTOL Start: 09-18-2017 MONONUCLEOSIS SCREEN RE AGAN BRISTOL Start: 09-18-2017 RAPID INFLUENZA A/B ANTIGENS ABDIFATAH BRISTOL Start: 09-18-2017 Microscopic urinalysis ABDIFATAH BRISTOL Start: 09-18-2017 , URINE ABDIFATAH BRISTOL Start: 09-18-2017 UA W/REFLEX CULTURE JORGITO KATI BRISTOL Start: 09-18-2017 URINE CULTURE ABDIFATAH BR ISTOL Start: 09-18-2017 URINE DRUG SCREEN REAGA N BRISTOL Start: 07-21-2017 Ct abdomen & pelvis w/o contrast material ABDIFATAH BRISTOL Start: 07-21-2017 URINALYSIS WITH MICROSCOPIC ABDIFATAH BRISTOL Start: 07-21-2017 RAPID INFLUENZA A/B ANTIGENS ABDIFATAH BRISTOL Start: 07-21-2017 STREP SCREEN GROUP A THROAT ABDIFATAH BRISTOL Start: 07-18-2017 Radex abd compl aqt abd w/s/e/d views 1 view ch ABDIFATAH BRISTOL Start: 07-18-2017 AMYLASE ABDIFATAH BRYANNA STO Start: 07-18-2017 CBC ABDIFATAH BRYANNA STOL Start: 07-18-2017 COMPREHENSIVE METABO LIC PANEL ABDIFATAH BRISTOL Start: 07-18-2017 HCG, SERUM, QUALITATIVE ABDIFATAH BRISTOL Start: 07-18-2017 LIPASE ABDIFATAH BRYANNA STOL Start: 07-18-2017 TSH WITHOUT REFLEX REAG AN CHANDU Plan of Treatment Date Care Activity Detail Author Start: 02-24-2023 [facility] Payers Date Payer Category Payer Medicaid [id number] 1998 Unknown [id number] 2.16.84 [id number] 1998 Unknown [id number] 2.16.84 0.1.776793.3.579.2.593 1998 Unknown [id number] .16.84 0.1.200983.3.579.2.593 1998 Unknown [id number] .16.84 0.1.139280.3.579.2.593 1998 Unknown [id number] 2.16.84 0.1.808117.3.579.2.593 1998 Unknown [id number] 2.16.84 0.1.161300.3.579.2.593 1998 Unknown [id number] 2.16.84 0.1.989399.3.579.2.593 1998 Unknown [id number] 2.16.84 0.1.239620.3.579.2.593 1998 Unknown [id number] 2.16.84 0.1.165028.3.579.2.1259 1998 Unknown [id number] 2.16.84 0.1.693451.3.579.2.1259 1959 Self-pay [id number] 1959 Unknown [id number] 1959 Unknown [id number] Unknown [id number] 2.16.8 40.1.079700.3.579.2.531 Unknown [id number] 2.16.8 40.1.176834.3.579.2.531 Social History Date Type Detail Facility Unknown if ever smoked [employer] Other Sex Assigned At Sex Assigned At Bir th [employer] Other Start: 12-16-2020 Tobacco smoking status NHIS Ex-smoker (finding) [facility] Start: 2000 Sex Assigned At Female F [facility] Goals Date Patient Goal Desired Activity /State Evaluation note 04-23-2023 Note Date & Type Note Facility 04-23-2023 Evaluation note Encounter Date Diagnosis Assessment Notes Apr, Hepatitis C (ICD-10 - B19.20) Apr, Fatty liver (ICD-10 - K76.0) FATTY LIVER WAS FOUND ON FIBROSCAN. PATIENT WAS EDUCATED ON WEIGHT LOSS & LIFESTYLE CHANGES. FOLLOW UP NEEDED . [employer] Other Evaluation note 02-05-2023 Note Date & Type Note Facility 02-05-2023 Evaluation note Encounter Date Diagnosis Assessment Notes Jan, Hepatitis C (ICD-10 - B19.20) Labs, ultrasound, and fibroscan as indicated above. Start approval process for [employer]. [employer] Other Evaluation note Note Date & Type Note Facility Evaluation note No assessment information availa [facility] Work Phone: History general Narrative - Reported Note Date & Type Note Facility History general Narrative - Reported Type Medical History pre diabetes Medical History anxiety/depression Medical History herpes [facility] [employer] Other History general Narrative - Reported Note Date & Type Note Facility History general Narrative - Reported Type Medical History pre diabetes Medical History anxiety/depression Medical History herpes Surgical History NONE Hospitalization History [facility] [employer] Other Summary Purpose Family History No Family History Records FoundNo Family History Records FoundNo Family History Records FoundNo Family History Records FoundNo Family History Records Found Advance Directives No Advanced Directives Records Found Advance Directive Response Recorded Date/ Time Advance Directives No July 11:45am Chief Complaint and Reason for Visit Chief Complaint Hepatitis C Hepatitis C Additional Source Comments INFORMATION SOURCE (unrecogn ized section and content) DATE CREATED AUTHOR 05/18/2018 [facility] DATE CREATED AUTHOR AUTHOR'S ORGANIZ ATION 05/18/2018 [facility] DATE CREATED AUTHOR AUTHOR'S ORGANIZ ATION 03/07/2023 [facility] DATE CREATED AUTHOR AUTHOR'S ORGANIZ ATION 03/24/2023 [facility] DATE CREATED AUTHOR AUTHOR'S ORGANIZ ATION 05/17/2024 [facility] EPIC REASON FOR VISIT (unrecogniz ed section and [...] BE BASED ON THE PRIMARY CLINICAL RECORDS. [facility] provides no warranty or guarantee of the accuracy or completeness of information in this document.
[2024-07-20 06:09] LABS: HBsAg Screen Negative (Negative); HIV Ab/p24 Ag Screen Non Reactive (Non Reactive); HSV 1 IgG, Type Spec 1.31 index (0.00-0.90); HSV 2 IgG, Type Spec >23.60 index (0.00-0.90)
[2024-07-20 13:08] LABS: Rapid Plasma Reagin, Quant Non Reactive titer (NonRea<1:1)
== END 2024-07-19 10:17 | disposition home or self-care (01) ==
LOC: LAB 10:18
PROVIDERS: Visit Provider Obstetrics & Gynecology
DX: Z20.2 Contact with and (suspected) exposure to infections with a predominantly sexual mode of transmission (principal)
CPT/HCPCS: 36415; 86592; 86695; 86696; 87340; 87389

== ENCOUNTER 2024-10-14 12:26 | Outpatient (OUT) | payer OTHER, SELFPAY ==
--- OUTSIDE RECORDS SUMMARY | 2024-10-14 12:37 | XMS_ITS | CCD ---
Author Organization [facility] Care Team Providers Care Copy Technician Name Role Phone MCKEON, KALIN Unavailable Unavailable [...] MD Blanca Imad Attending Provider DO Cathryn Banks Primary Care Provider Asaad, Imad Admitting Unavailable Cathryn Banks Primary Care Unavailable Asaad, Imad Attending Unavailable Cathryn Banks Primary Care Unavailable Asaad, Imad Attending Unavailable [...] Unavailable YOSSI ., DR MEI Admitting Unavailable OYSSI ., DR MEI Attending Unavailable BRISTOL, DR [...] DR MEI Attending Unavailable JESS ., DAPHNE Admitting Unavailable JESS .DAPHNE Attending Unavailable CHANDU, DR GARDINER Primary Care Unavailable CHANDU, DR GARDINER Primary Care Unavailable YOSSI ., DR MEI Admitting Unavailable YOSSI ., DR MEI Attending Unavailable YOSSI ., DR MEI Consulting Unavailable HAMIDA SY Attending Unavailable HAMIDA SY Attending Unavailable HAMIDA SY Attending Unavailable Allergies Allergy Classification Reported Allergen(s) Allergy Type Date of Onset Reaction(s) Facility (3 sources) Codeine Drug Allergy 1 Unknown, [facility] (2 sources) Penicillin Drug Allergy Unknown Plan A Drink Other (4 sources) Penicillins; Translations: [Penicillins] Allergy to substance 4 [facility] (1 source) Codeine Drug Allergy 1 [facility] Repository (2 sources) Codeine Drug Allergy 4 [facility] Repository Medications Current Medications Medication Drug Class(es) [...] 21 to 29on 03-23-2023 . . Normal [facility] Comment on above: Performed By: #### 4 [id number] #### [facility] [address] [place] [address] Dr. Vivian Govea Age Gdln ACOG Testing - [facility] Comment on above: Performed By: #### 4 [id number] #### [facility] [address] [place] [address] Dr. Vivian Govea DIAGNOSIS: Comment [facility] Comment on above: Result Comment: NEGA TIVE FOR INTRAEPITHELIAL LESION OR MALIGNANCY. Performed By: #### 4 [id number] #### [facility] [address] [place] [address] Dr. Vivian Govea Methodology: Comment [facility] Comment on above: Result Comment: This liquid based ThinPrep(R) pap test was screened with the use of an image guided system. Performed By: #### 4 [id number] #### [facility] [address] [place] [address] Dr. Vivian Govea Note: Comment [facility] Comment on above: Result Comment: The Pap smear is a screening test designed to aid in the detection of premalignant and malignant conditions of the uterine cervix. It is not a diagnostic procedure and should not be used as the sole means of detecting cervical cancer. Both false-positive and false-negative reports do occur. . Performed By: #### 4 [id number] #### [facility] [address] [place] [address] Dr. Vivian Govea Performed by: Comment [facility] Comment on above: Result Comment: Jose L Izquierdo Veneer Stock Layer (ASCP) Performed By: #### 4 [id number] #### [facility] [address] [place] [address] Dr. Vivian Govea Reflex Criteria: Comment [facility] Comment on above: Result Comment: The HPV DNA reflex criteria were not met with this specimen result therefore, no HPV testing was performed. . Performed By: #### 4 [id number] #### [facility] [address] [place] [address] Dr. Vivian Govea Specimen adequacy: Comment Normal [facility] Comment on above: Result Comment: Sati sfactory for evaluation. Endocervical and/or squamous metaplastic cells (endocervical component) are present. Performed By: #### 4 [id number] #### [facility] [address] [address] [address] Vivian Govea HCG ( test) IA.rapi d Ql (U)Ordered By: Alexis Rios on 02-24-2023 HCG ( test) Ql (U) Negative [facility] HCG,Urineon 02-24-2023 Beta HCG ( test) Ql (U) Negative Normal [facility] Comment on above: Result Comment: PERF ORMED BY: [place] [address] PATHOLOGIST EMBROIDERY SPECIALIST PROSPER BURGOS M.D. Performed By: #### U HCG #### [address] HCV genotyping ser/plas ampl ified probeOrdered By: Alexis Rios on 02-19-2023 HCV genotype OCTAVIO+probe Nom See comment . [facility] Comment on above: Test not performed. Unable to provide an HCV genotype forthis sample. The most common reason an HCV genotype cannotbe determined is due to a viral load of <1,000 IU/mL, ormore rarely, the presence of an untypable HCV genotype. HIV 1/O/2 Antigen/Antibodyon 02-19-2023 HIV Screen 4th Generation Non-Reactive Normal Non Reactive [facility] Comment on above: Order Comment: Reaso n for Exam Hepatitis C Result Comment: HIV Negative HIV-1/HIV-2 antibodies and HIV-1 p24 antigen were NOT detected. There is no laboratory evidence of HIV infection. Performed at: - [address] [id number] Dress Finisher: Robin Mccormack PhD, Phone: [phone] PERFORMED BY: [place] [address] PATHOLOGIST EMBROIDERY SPECIALIST PROSPER BURGOS M.D. Performed By: #### H CV RNAQNT, HBSAG, HIV SCREEN, HBCAB, HAABT, HBSAB, HCV DUSTY #### [facility] , HIV 1 and HIV-2 antibody ass ay with HIV-1 p24 antigen detectionOrdered By: Alexis Rois on 02-19-2023 HIV 1+2 Ab+HIV1 p24 Ag IA Ql Non-Reactive Non Reactive [facility] Comment on above: HIV NegativeHIV-1/HI V-2 antibodies and HIV-1 p24 antigen were NOTdetected. There is no laboratory evidence of HIV infection.Performed at: [facility] [address] [id number] Director: Robin Mccormack PhD, Phone: [phone] Hep C Genotyping Non Reflexo n 02-19-2023 Hepatitis C Genotype Normal . [facility] Comment on above: Order Comment: [...] #### [facility] , Please Note: Normal . [facility] Comment on above: Order Comment: Reaso n for Exam Hepatitis C Result Comment: This test was developed and its performance characteristics determined by [employer]. It has not been cleared or approved by the U.S. Food and Drug Administration. The FDA has determined that such clearance or approval is not necessary. This test is used for clinical purposes. It should not be regarded as investigational or for research. Performed at: [facility] [address] [id number] Dress Finisher: Yue Hammond MD, Phone: [phone] PERFORMED BY: [facility] [place] [address] PATHOLOGIST EMBROIDERY SPECIALIST PROSPER BURGOS M.D. Performed By: #### H CV RNAQNT, HBSAG, HIV SCREEN, HBCAB, HAABT, HBSAB, HCV DUSTY #### [facility] , Hep C RT-PCR, Qnt (Non-Graph )on 02-19-2023 Hepatitis C Quantitation Not detected Normal . [facility] Comment on above: Order Comment: Reaso n for Exam Hepatitis C Performed By: #### H CV RNAQNT, HBSAG, HIV SCREEN, HBCAB, HAABT, HBSAB, HCV DUSTY #### [facility] , Test Information: Normal . [facility] Comment on above: Order Comment: Reaso n for Exam Hepatitis C Result Comment: The quantitative range of this assay is 15 IU/mL to 100 million IU/mL. Performed at: [facility] [address] [id number] Dress Finisher: Yue Hammond MD, Phone: [phone] Performed By: #### H CV RNAQNT, HBSAG, HIV SCREEN, HBCAB, HAABT, HBSAB, HCV DUSTY #### [facility] , Hepatitis A Antibody Totalon 02-19-2023 Hepatitis A Antibody Total Negative Normal Negative [facility] Comment on above: Order Comment: Reaso n for Exam Hepatitis C Result Comment: Perf ormed at: [facility] [address] [id number] Dress Finisher: Robin Mccormack PhD, Phone: [phone] Performed By: #### H CV RNAQNT, HBSAG, HIV SCREEN, HBCAB, HAABT, HBSAB, HCV DUSTY #### [facility] , Hepatitis A virus Ab [Presen ce] in Serum by ImmunoassayOrdered By: Alexis Rios on 02-19-2023 HAV Ab IA Ql (S) Negative Negative [facility] Comment on above: Performed at: [facility] [address] [id number] Director: Robin Mccormack PhD, Phone: [phone] Hepatitis B Core Antibodyon 02-19-2023 Hepatitis B Core Antibody Negative Normal Negative [facility] Comment on above: Order Comment: Reaso n for Exam Hepatitis C Performed By: #### H CV RNAQNT, HBSAG, HIV SCREEN, HBCAB, HAABT, HBSAB, HCV DUSTY #### [facility] , Hepatitis B Surface Antibody on 02-19-2023 Hepatitis B Surface Antibody Non-Reactive Normal . [facility] Comment on above: Order Comment: Reaso n for Exam Hepatitis C Result Comment: Non Reactive: Inconsistent with immunity, less than 10 mIU/mL Reactive: Consistent with immunity, greater than 9.9 mIU/mL Performed By: #### H CV RNAQNT, HBSAG, HIV SCREEN, HBCAB, HAABT, HBSAB, HCV DUSTY #### [facility] , Hepatitis B Surface Antigeno n 02-19-2023 HBsAg Screen Negative Normal Negative [facility] Comment on above: Order Comment: Reaso n for Exam Hepatitis C Performed By: #### H CV RNAQNT, HBSAG, HIV SCREEN, HBCAB, HAABT, HBSAB, HCV DUSTY #### [facility] , Hepatitis B virus surface Ag [Presence] in Serum or Plasma by ImmunoassayOrdered By: Imad Asaad on 02-19-2023 HBV surface Ag IA Ql Negative Negative [facility] Hepatitis C virus RNA [log u nits/volume] (viral load) in Serum or Plasma by OCTAVIO withOrdered By: Imyanelis Angelesad on 02-19-2023 HCV RNA OCTAVIO+probe [Log units/Vol] Not detected . [facility] No Panel InformationOrdered By: Imad Asaad on 02-19-2023 Hepatitis B Core Total Antibody Negative Negative [facility] Hepatitis C RNA (PCR) Interpret See comment . [facility] Comment on above: The quantitative ran ge of this assay is 15 IU/mL to 100million IU/mL.Performed at: [address] [id number] Director: Yue Hammond MD, Phone: [phone] Herpes Simplex Virus Note 2 See comment . [facility] Comment on above: This test was develo ped and its performance characteristicsdetermined by [employer]. It has not been cleared or approvedby the U.S. Food and Drug Administration.The FDA has determined that such clearance or approval isnot necessary. This test is used for clinical purposes. Itshould not be regarded as investigational or for research.Performed at: - [id number] [place], [place] [id number] Director: Yue Hammond MD, Phone: [phone] Serum hepatitis B virus surf daisy antibody detectionOrdered By: Alexis Rios on 02-19-2023 HBV surface Ab Ql (S) Non-Reactive . [facility] Comment on above: Non Reactive: Incons istent with immunity, less than 10 mIU/mL Reactive: Consistent with immunity, greater than 9.9 mIU/mL US liveron 02-19-2023 US liver [facility] [address] [place] [address] [place] [address] Ultrasound Report Signed Patient: Sabra Wills MR#: [id number] : 2000 Acct:[id number] Age/Sex: 22 / F ADM Date: 02/19/23 Loc: Room: Type: [facility] Attending Dr: Alexis Rios MD Ordering Provider: [...] PROCESS.. Impression dictated by: Venkata Benavides Jr., D.O.02/19/2023 11:18 AM Dictation Location: [place] [address] Tech: Cate Gimenez Transcribed By: BIN 02/19/231117 Dictated By: Venkata Benavides Jr, DO 02/19/231116 Signed By: 02/19/23 1118 [facility] CHLAMYDIA/GONOCOCCUS OCTAVIO (SW AB/URINE/PAPon 12-22-2022 Chlamydia trachomatis, OCTAVIO Negative Normal Negative [facility] Comment on above: Performed By: #### C T/NGNA #### [facility] [address] [place] [address] Dr. Vivian Govea Neisseria gonorrhoeae, OCTAVIO Negative Normal Negative [facility] Comment on above: Performed By: #### C T/NGNA #### [facility] [address] [place] [address] Dr. Vivian Govea VAGINITIS/VAGINOSIS DNA PROB Lenard 12-20-2022 Kaylin species Negative Normal Negative [facility] Comment on above: Performed By: #### V AGINT #### [facility] [address] [place] [address] Dr. Vivian Govea Gardnerella vaginalis Positive Abnormal Negative [facility] Comment on above: Performed By: #### V AGINT #### [facility] [address] [place] [address] Dr. Vivian Govea Trichomonas vaginalis Negative Normal Negative [facility] Comment on above: Performed By: #### V AGINT #### [facility] [address] [place] [address] Dr. Vivian Govea CHLAMYDIA/GONOCOCCUS OCTAVIO (SW AB/URINE/PAPon 07-28-2022 Chlamydia trachomatis, OCTAVIO Negative Normal Negative [facility] Comment on above: Performed By: #### C T/NGNA #### [facility] [address] [place] [address] Dr. Vivian Govea Neisseria gonorrhoeae, OCTAVIO Negative Normal Negative [facility] Comment on above: Performed By: #### C T/NGNA #### [facility] [address] [place] [address] Dr. Vivian Govea VAGINITIS/VAGINOSIS DNA PROB [place] 07-27-2022 Kaylin species Negative Normal Negative [facility] Comment on above: Performed By: #### V AGINT #### [facility] [address] [place] [address] Dr. Vivian Govea Gardnerella vaginalis Positive Abnormal Negative [facility] Comment on above: Performed By: #### V AGINT #### [facility] [address] [place] [address] Dr. Vivian Govae Trichomonas vaginalis Negative Normal Negative [facility] Comment on above: Performed By: #### V AGINT #### [facility] [address] [place] [address] Dr. Vivian Govea VAGINITIS/VAGINOSIS DNA PROB [place] 05-09-2022 Kaylin species Negative Normal Negative [facility] Comment on above: Performed By: #### V AGINT #### [facility] [address] [place] [address] Dr. Vivian Govea Gardnerella vaginalis Positive Abnormal Negative [facility] Comment on above: Performed By: #### V AGINT #### [facility] [address] [place] [address] Dr. Vivian Govea Trichomonas vaginalis Negative Normal Negative [facility] Comment on above: Performed By: #### V AGINT #### [facility] [address] [place] [address] Dr. Vivian Govea CHLAMYDIA/GONOCOCCUS OCTAVIO (SW AB/URINE/PAPon 04-11-2022 Chlamydia trachomatis, OCTAVIO Negative Normal Negative [facility] Comment on above: Performed By: #### C T/NGNA #### [facility] [address] [place] [address] Dr. Vivian Govea Neisseria gonorrhoeae, OCTAVIO Negative Normal Negative [facility] Comment on above: Performed By: #### C T/NGNA #### [facility] [address] [place] [address] Dr. Vivian Govea VAGINITIS/VAGINOSIS DNA PROB [place] 04-10-2022 Kaylin species Negative Normal Negative [facility] Comment on above: Performed By: #### V AGINT #### [facility] [address] [place] [address] Dr. Vivian Govea Gardnerella vaginalis Negative Normal Negative [facility] Comment on above: Performed By: #### V AGINT #### [facility] [address] [place] [address] Dr. Vivian Govea Trichomonas vaginalis Positive Abnormal Negative [facility] Comment on above: Performed By: #### V AGINT #### [facility] [address] [place], [place] [address] Dr. Vivian Govea CBC with Diffon 11-16-2017 Abs. Basophil 0.10 k/uL Normal 0.0-0.2 [facility] Comment on above: Result Comment: Perf ormed at [facility] [address] [place] [address] Performed By: #### C DP, CP ####[facility] [place] [address] Abs.Neutrophil (Seg) 3.90 k/uL Normal 1.3-9.1 [facility] Comment on above: Performed By: #### C DP, CP ####[facility] [place] [address] Basophils/100 WBC Auto (Bld) 1 % Normal 0-2 [facility] Comment on above: Performed By: #### C DP, CP ####[facility] [place] [address] Eosinophils 0.30 10*3/uL Normal 0.0-0.4 [facility] Comment on above: Performed By: #### C DP, CP ####[facility] [place] [address] Eosinophils/100 leukocytes 4 % Normal 0-4 [facility] Comment on above: Performed By: #### C DP, CP ####[facility] [place] [address] Erythrocyte distribution width Auto Ratio (RBC) 13.9 % Normal 11.5-14.9 [facility] Comment on above: Performed By: #### C DP, CP ####[facility] [place] [address] Erythrocytes (RBC) 4.72 10*6/uL Normal 4.0-5.2 [facility] Comment on above: Performed By: #### C DP, CP ####[facility] [place] [address] Hematocrit (HCT) 39.5 % Normal 36-46 [facility] Comment on above: Performed By: #### C DP, CP ####[facility] [place] [address] Hemoglobin mass conc (Bld) 13.2 g/dL Normal 12.0-16.0 [facility] Comment on above: Performed By: #### C DP, CP ####[address] [address] Lymphocytes 1.90 10*3/uL Normal 1.2-5.2 [facility] Comment on above: Performed By: #### C DP, CP ####[address] [address] Lymphocytes/100 leukocytes 29 % Normal 25-45 [facility] Comment on above: Performed By: #### C DP, CP ####[address] [address] MCH 27.9 pg Normal 25-35 [facility] Comment on above: Performed By: #### C DP, CP ####[address] [address] MCHC mass conc (RBC) 33.4 g/dL Normal 31-37 [facility] Comment on above: Performed By: #### C DP, CP ####[address] [address] MCV 83.6 fL Normal 78-102 [facility] Comment on above: Performed By: #### C DP, CP ####[address] [address] Monocytes 0.60 10*3/uL Normal 0.1-1.3 [facility] Comment on above: Performed By: #### C DP, CP ####[facility] [place] [address] Monocytes/100 leukocytes 9 % High 2-8 [facility] Comment on above: Performed By: #### C DP, CP ####[facility] [place] [address] Neutrophil (Seg) 57 % Normal 34-64 [facility] Comment on above: Performed By: #### C DP, CP ####[address] [address] Platelet mean volume (PMV) 8.0 fL Normal 6.0-12.0 [facility] Comment on above: Performed By: #### C DP, CP ####[facility] [place] [address] Platelets 242 10*3/uL Normal 150-450 [facility] Comment on above: Performed By: #### C DP, CP ####[address] [address] WBC (Leukocytes) 6.8 10*3/uL Normal 4.5-13.5 [facility] Comment on above: Performed By: #### C DP, CP ####[facility] [place] [address] Auto Diff Performed NOT REPORTED Normal [facility] Comment on above: Performed By: #### C DP, CP ####[address] [address] Erythrocyte morphology NOT REPORTED Normal [facility] Comment on above: Performed By: #### C DP, CP ####[address] [facility] [place] [address] Granulocytes/100 WBC (Bld) NOT REPORTED Normal 0.00-0.30 [facility] Comment on above: Performed By: #### C DP, CP ####[facility] [facility] [address] Immature granulocytes #/vol (Bld) NOT REPORTED Normal 0 [facility] Comment on above: Performed By: #### C DP, CP ####[facility] [place] [address] Platelets NOT REPORTED Normal [facility] Comment on above: Performed By: #### C DP, CP ####[address] [address] WBC Morphology NOT REPORTED Normal [facility] Comment on above: Performed By: #### C DP, CP ####[address] [address] Comp Metabolic Profon 2016 (cont.) Normal [facility] Comment on above: Result Comment: Aver age GFR for <20 years old not available.Chronic Kidney Disease: <60 mL/min/1.73sq mKidney failure: <15 mL/min/1.73sq meGFR calculated using average adult body mass. Additional eGFR calculator available at:http://www.[employer].com/multiple_crcl_2011.htmPerformed at [facility] [address] [place] [address] Performed By: #### C DP, CP ####[address] [place] [address] Alanine aminotransferase (ALT) 44 U/L High 5-33 [facility] Comment on above: Performed By: #### C DP, CP ####[address] [place] [address] Albumin 3.9 g/dL Normal 3.5-5.2 [facility] Comment on above: Performed By: #### C DP, CP ####[facility] [place] [address] Alkaline Phos 68 U/L Normal 35-104 [facility] Comment on above: Performed By: #### C DP, CP ####[facility] [place], [place] [address] [facility] [place] [address] Anion gap 11 mmol/L Normal 9-17 [facility] Comment on above: Performed By: #### C DP, CP ####[address] [place] [address] Aspartate aminotransferase (AST) 37 U/L High <32 [facility] Comment on above: Performed By: #### C DP, CP ####[facility] [place] [address].[place] [address] Bilirubin Ql (U) 0.39 mg/dL Normal 0.3-1.2 [facility] Comment on above: Performed By: #### C DP, CP ####[address] [place] [address] Calcium 9.1 mg/dL Normal 8.6-10.4 [facility] Comment on above: Performed By: #### C DP, CP ####[facility] [place] [address].[place] [address] Chloride 103 mmol/L Normal 98-107 [facility] Comment on above: Performed By: #### C DP, CP ####[address] [facility] [place] [address] CO2 26 mmol/L Normal 20-31 [facility] Comment on above: Performed By: #### C DP, CP ####[address] [address] [facility] [place] [address] Creatinine 0.54 mg/dL Normal 0.50-0.90 [facility] Comment on above: Performed By: #### C DP, CP ####[address] [place] [address] eGFR (non-black) Pediatric GFR requir es additional information. Refer to NKDEP website for Normal >60 [facility] [facility] Comment on above: Result Comment: calc ulator. Performed By: #### C DP, CP ####[address] [address] Glucose mass conc 91 mg/dL Normal 70-99 [facility] Comment on above: Performed By: #### C DP, CP ####[address] [address] Potassium molar conc 4.2 mmol/L Normal 3.7-5.3 [facility] Comment on above: Performed By: #### C DP, CP ####[address] [address] Protein 6.9 g/dL Normal 6.4-8.3 [facility] Comment on above: Performed By: #### C DP, CP ####[address] [address] Sodium 140 mmol/L Normal 135-144 [facility] Comment on above: Performed By: #### C DP, CP ####[address] [place] [address] Urea nitrogen 9 mg/dL Normal 6-20 [facility] Comment on above: Performed By: #### C DP, CP ####[address] [address] Albumin/Globulin Ratio NOT REPORTED Normal 1.0-2.5 [facility] Comment on above: Performed By: #### C DP, CP ####[id number] [facility] [address] BUN/CRE Ratio NOT REPORTED Normal - [facility] Comment on above: Performed By: #### C DP, CP ####[id number] [facility] [place] [address] eGFR (non-black) NOT REPORTED Normal >60 [facility] Comment on above: Performed By: #### C DP, CP ####[id number] [facility] [place] [address] Staging: NOT REPORTED Normal [facility] Comment on above: Performed By: #### C DP, CP ####[id number] [facility] [place] [address] ED Noteon 11-15-2017 HIM IP Note OR Welding Machine Operator Resistance Normal [facility] HIM IP Note OR Welding Machine Operator Resistance Normal [facility] Basic Metabolic Profon 11-14 (cont.) Normal [facility] Comment on above: Result Comment: Aver age GFR for <20 years old not available.Chronic Kidney Disease: <60 mL/min/1.73sq mKidney failure: <15 mL/min/1.73sq meGFR calculated using average adult body mass. Additional eGFR calculator available at:http://www.[employer].com/multiple_crcl_2011.htm Performed By: #### C BC, DAPHNE, CP, LIP, TSH, HCG ####[address] [place] [address] Anion gap 11 mmol/L Normal -17 [facility] Comment on above: Performed By: #### C BC, DAPHNE, CP, LIP, TSH, HCG ####[address] [place] [address] BUN/CRE Ratio 18 Normal - [facility] Comment on above: Performed By: #### C BC, DAPHNE, CP, LIP, TSH, HCG ####[address] [place] [address] Calcium 9.2 mg/dL Normal 8.6-10.4 [facility] Comment on above: Performed By: #### C BC, DAPHNE, CP, LIP, TSH, HCG ####[address] [place] [address] Chloride 101 mmol/L Normal 98-107 [facility] Comment on above: Performed By: #### C BC, DAPHNE, CP, LIP, TSH, HCG ####[address] [place] [address] CO2 26 mmol/L Normal 20-31 [facility] Comment on above: Performed By: #### C BC, DAPHNE, CP, LIP, TSH, HCG ####[address] [place] [address] Creatinine 0.44 mg/dL Low 0.50-0.90 [facility] Comment on above: Performed By: #### C BC, DAPHNE, CP, LIP, TSH, HCG ####[address] [place] [address] eGFR (non-black) Pediatric GFR requir es additional information. Refer to NKDEP website for Normal >60 [facility] Comment on above: Result Comment: calc ulator. Performed By: #### C BC, DAPHNE, CP, LIP, TSH, HCG ####[address] [place] [address] Glucose mass conc 93 mg/dL Normal 70-99 [facility] Comment on above: Performed By: #### C BC, DAPHNE, CP, LIP, TSH, HCG ####[address] [place] [address] Potassium molar conc 4.2 mmol/L Normal 3.7-5.3 [facility] Comment on above: Performed By: #### C BC, DAPHNE, CP, LIP, TSH, HCG ####[address] [place] [address] Sodium 138 mmol/L Normal 135-144 [facility] Comment on above: Performed By: #### C BC, DAPHNE, CP, LIP, TSH, HCG ####[address] [place] [address] Staging: Normal [facility] Comment on above: Result Comment: Stag e 1: Some kidney damage normal GFRStage 2: Mild kidney damage GFR 60-89Stage 3: Moderate kidney damage GFR 30-59Stage 4: Severe kidney damage GFR 15-29Stage 5: Severe kidney damage GFR <15ESRD - chronic treatment by dialysis or transplantPerformed at [address] [place] [address] Performed By: #### C BC, DAPHNE, CP, LIP, TSH, HCG ####[address] [place] [address] Urea nitrogen 8 mg/dL Normal 6-20 [facility] Comment on above: Performed By: #### C BC, DAPHNE, CP, LIP, TSH, HCG ####[address] [place] [address] eGFR (non-black) NOT REPORTED Normal >60 [facility] Comment on above: Performed By: #### C BC, DAPHNE, CP, LIP, TSH, HCG ####[address] [place] [address] CBC with Diffon 11-14-2017 Abs. Basophil 0.10 k/uL Normal 0.0-0.2 [facility] Comment on above: Result Comment: Perf ormed at [address] [place] [address] Performed By: #### C BC, DAPHNE, CP, LIP, TSH, HCG ####[address] , [place] [address] Abs.Neutrophil (Seg) 6.40 k/uL Normal 1.8-8.0 [facility] Comment on above: Performed By: #### C BC, DAPHNE, CP, LIP, TSH, HCG ####[address] , [place] [address] Basophils/100 WBC Auto (Bld) 1 % Normal 0-2 [facility] Comment on above: Performed By: #### C BC, DAPHNE, CP, LIP, TSH, HCG ####[address] , [place] [address] Eosinophils 0.30 10*3/uL Normal 0.0-0.4 [facility] Comment on above: Performed By: #### C BC, DAPHNE, CP, LIP, TSH, HCG ####[address] , [place] [address] Eosinophils/100 leukocytes 3 % Normal 0-8 [facility] Comment on above: Performed By: #### C BC, DAPHNE, CP, LIP, TSH, HCG ####[address] , [place] [address] Erythrocyte distribution width Auto Ratio (RBC) 14.2 % Normal 12.1-15.2 [facility] Comment on above: Performed By: #### C BC, DAPHNE, CP, LIP, TSH, HCG ####[address] , [place] [address] Erythrocytes (RBC) 4.88 10*6/uL Normal 4.0-5.2 [facility] Comment on above: Performed By: #### C BC, DAPHNE, CP, LIP, TSH, HCG ####[address] , [place] [address] Hematocrit (HCT) 40.5 % Normal 36-46 [facility] Comment on above: Performed By: #### C BC, DAPHNE, CP, LIP, TSH, HCG ####[address] , [facility]83 Hemoglobin mass conc (Bld) 13.3 g/dL Normal 12.0-16.0 [facility] Comment on above: Performed By: #### C BC, DAPHNE, CP, LIP, TSH, HCG ####[address] , [place] [address] Lymphocytes 2.00 10*3/uL Normal 1.2-5.2 [facility] Comment on above: Performed By: #### C BC, DAPHNE, CP, LIP, TSH, HCG ####[address] , [facility]83 Lymphocytes/100 leukocytes 21 % Low 25-45 [facility] Comment on above: Performed By: #### C BC, DAPHNE, CP, LIP, TSH, HCG ####[address] , [place] [address] MCH 27.4 pg Normal 25-35 [facility] Comment on above: Performed By: #### C BC, DAPHNE, CP, LIP, TSH, HCG ####[address] , [place] [address] MCHC mass conc (RBC) 33.0 g/dL Normal 31-37 [facility] Comment on above: Performed By: #### C BC, DAPHNE, CP, LIP, TSH, HCG ####[address] , [place] [address] MCV 83.0 fL Normal 78-102 [facility] Comment on above: Performed By: #### C BC, DAPHNE, CP, LIP, TSH, HCG ####[address] [place] [address] Monocytes 0.50 10*3/uL Normal 0.0-1.0 [facility] Comment on above: Performed By: #### C BC, DAPHNE, CP, LIP, TSH, HCG ####[address] [place] [address] Monocytes/100 leukocytes 6 % Normal 0-12 [facility] Comment on above: Performed By: #### C BC, DAPHNE, CP, LIP, TSH, HCG ####[address] [place] [address] Neutrophil (Seg) 69 % High 34-64 [facility] Comment on above: Performed By: #### C BC, DAPHNE, CP, LIP, TSH, HCG ####[address] , [facility]83 Platelet mean volume (PMV) 8.1 fL Normal 6.0-12.0 [facility] Comment on above: Performed By: #### C BC, DAPHNE, CP, LIP, TSH, HCG ####[address] , [facility]83 Platelets 270 10*3/uL Normal 140-450 [facility] Comment on above: Performed By: #### C BC, DAPHNE, CP, LIP, TSH, HCG ####[address] [place] [address] WBC (Leukocytes) 9.3 10*3/uL Normal 4.5-13.5 [facility] Comment on above: Performed By: #### C BC, DAPHNE, CP, LIP, TSH, HCG ####[address] , [facility]83 Auto Diff Performed NOT REPORTED Normal [facility] Comment on above: Performed By: #### C BC, DAPHNE, CP, LIP, TSH, HCG ####[address] [place] [address] Erythrocyte morphology NOT REPORTED Normal [facility] Comment on above: Performed By: #### C BC, DAPHNE, CP, LIP, TSH, HCG ####[address] , [facility]83 Granulocytes/100 WBC (Bld) NOT REPORTED Normal 0.00-0.30 [facility] Comment on above: Performed By: #### C BC, DAPHNE, CP, LIP, TSH, HCG ####[address] [place] [address] Immature granulocytes #/vol (Bld) NOT REPORTED Normal 0 [facility] Comment on above: Performed By: #### C BC, DAPHNE, CP, LIP, TSH, HCG ####[address] [place] [address] Platelets NOT REPORTED Normal [facility] Comment on above: Performed By: #### C BC, DAPHNE, CP, LIP, TSH, HCG ####[address] [place] [address] WBC Morphology NOT REPORTED Normal [facility] Comment on above: Performed By: #### C BC, DAPHNE, CP, LIP, TSH, HCG ####[address] , [facility]83 Drug Scr, Abuse, Uron 2016 Amphetamine(s),Ur Negative Normal NEG [facility] Comment on above: Performed By: #### C BC, DAPHNE, CP, LIP, TSH, HCG ####[address] [place] [address] Barbiturate(s),Ur Negative Normal NEG [facility] Comment on above: Performed By: #### C BC, DAPHNE, CP, LIP, TSH, HCG ####[address] [place] [address] Base excess Negative Normal NEG [facility] Comment on above: Performed By: #### C BC, DAPHNE, CP, LIP, TSH, HCG ####[address] [place] [address] Benzodiazepine(s) Positive Abnormal NEG [facility] Comment on above: Performed By: #### C BC, DAPHNE, CP, LIP, TSH, HCG ####[address] [place] [address] Buprenorphrine, Ur Negative Normal NEG [facility] Comment on above: Result Comment: Perf ormed at [address] [place] [address] Performed By: #### C BC, DAPHNE, CP, LIP, TSH, HCG ####[address] [place] [address] Cannabinoid(s),Ur Positive Abnormal NEG [facility] Comment on above: Performed By: #### C BC, DAPHNE, CP, LIP, TSH, HCG ####[address] [place] [address] Methamphetamine, Ur Negative Normal NEG [facility] Comment on above: Performed By: #### C BC, DAPHNE, CP, LIP, TSH, HCG ####[address] [place] [address] Opiate(s), Ur Negative Normal NEG [facility] Comment on above: Performed By: #### C BC, DAPHNE, CP, LIP, TSH, HCG ####[address] [place] [address] Oxycodone, Urine Negative Normal NEG [facility] Comment on above: Performed By: #### C BC, DAPHNE, CP, LIP, TSH, HCG ####[address] [place] [address] Phencyclidine, Ur Negative Normal NEG [facility] Comment on above: Performed By: #### C BC, DAPHNE, CP, LIP, TSH, HCG ####[address] [place] [address] Propoxyphene,Urine Negative Normal NEG [facility] Comment on above: Performed By: #### C BC, DAPHNE, CP, LIP, TSH, HCG ####[address] [place] [address] Urine, methadone presence Negative Normal NEG [facility] Comment on above: Performed By: #### C BC, DAPHNE, CP, LIP, TSH, HCG ####[address] , [place] [id number] Urine, tricyclic antidepressants Negative Normal NEG [facility] Comment on above: Result Comment: Drug screen results are to be used for medical purposes only. All positive results are unconfirmed. Testing for employment or legal uses should be sent to a reference laboratory for confirmation. Performed By: #### C BC, DAPHNE, CP, LIP, TSH, HCG ####[address] , [place] [id number] Interpretive Info NOT REPORTED Normal [facility] Comment on above: Performed By: #### C BC, DAPHNE, CP, LIP, TSH, HCG ####[address] , [place] [address] MDMA, Urine NOT REPORTED Normal NEG [facility] Comment on above: Performed By: #### C BC, DAPHNE, CP, LIP, TSH, HCG ####[address] [place] [address] ED Noteon 11-14-2017 HIM IP Note OR Welding Machine Operator Resistance Normal [facility] HIM IP Note OR Welding Machine Operator Resistance Normal [facility] HIM IP Note OR Welding Machine Operator Resistance Normal [facility] HIM IP Note OR Welding Machine Operator Resistance Normal [facility] ED Provider Noteon 7 HIM IP Note OR Welding Machine Operator Resistance Normal [facility] HCG, ,Urineon 11-14 HCG.beta subunit ( test) Ql (U) Negative Normal NEG [facility] Comment on above: Result Comment: Perf ormed at [address] [place], [place] [id number] [phone] Performed By: #### C BC, DAPHNE, CP, LIP, TSH, HCG ####[address] [place] [address] Progress Noteon 11-14-2017 HIM IP Note OR Welding Machine Operator Resistance Normal [facility] Tox Scr, Bld, EDon 7 Toxic Tricyclic Sc,Bl Negative Normal NEG [facility] Comment on above: Result Comment: Perf ormed at [facility] [address] [facility], [place] [address] [phone] Performed By: #### C BC, DAPHNE, CP, LIP, TSH, HCG ####[address] [place] [address] Acetaminophen mass conc <10 Low 10-30 [facility] Comment on above: Result Comment: Perf ormed at [address] [place] [address] Performed By: #### C BC, DAPHNE, CP, LIP, TSH, HCG ####[address] [place] [address] Salicylate <1 Low 3-10 [facility] Comment on above: Result Comment: Perf ormed at [address] [place] [address] Performed By: #### C BC, DAPHNE, CP, LIP, TSH, HCG ####[address] [place] [address] Ethanol mg/dL Normal <10 [facility] Comment on above: Result Comment: Perf ormed at [address] [place] [address] Performed By: #### C BC, DAPHNE, CP, LIP, TSH, HCG ####[address] [place] [address] Ethanol percent <0.010 Normal [facility] Comment on above: Result Comment: Perf ormed at [address] [place] [address] Performed By: #### C BC, DAPHNE, CP, LIP, TSH, HCG ####[address] [place] [address] Group A Strep DNAon 09-20-20 17 Group A Strep DNA Specimen Description .THROAT SWAB Performed at [address] [place] [address] Special Requests NOT REPORTEDDirect Exam Negative: Specimen negative for Streptococcus pyogenes by DNA amplification. Performed at [address] [id number] [phone] Report Status FINAL 09/19/2017 Normal [facility] Comment on above: Performed By: #### C BC, DAPHNE, CP, LIP, TSH, HCG ####[address] [place] [address] Cult,Urineon 09-19-2017 Cult,Urine Specimen Description .URINE Performed at [address] [place] [address] Special Requests .CLEAN CATCH URINE Performed at [address] [place] [address] Culture NO SIGNIFICANT GROWTH Performed at [address] [address] Report Status FINAL 09/19/2017 Normal [facility] Comment on above: Performed By: #### C BC, DAPHNE, CP, LIP, TSH, HCG ####[address] [place] [address] CBC with Diffon 09-18-2017 Abs. Basophil 0.00 k/uL Normal 0.0-0.2 [facility] Comment on above: Result Comment: Perf ormed at [address] [place] [address] Performed By: #### C BC, DAPHNE, CP, LIP, TSH, HCG ####[address] [place] [address] Abs.Neutrophil (Seg) 10.00 k/uL High 1.8-8.0 [facility] Comment on above: Performed By: #### C BC, DAPHNE, CP, LIP, TSH, HCG ####[address] [place] [address] Basophils/100 WBC Auto (Bld) 0 % Normal [facility] Comment on above: Performed By: #### C BC, DAPHNE, CP, LIP, TSH, HCG ####[address] , [facility]83 Eosinophils 0.10 10*3/uL Normal 0.0-0.4 [facility] Comment on above: Performed By: #### C BC, DAPHNE, CP, LIP, TSH, HCG ####[address] , [place] [address] Eosinophils/100 leukocytes 1 % Normal [facility] Comment on above: Performed By: #### C BC, DAPHNE, CP, LIP, TSH, HCG ####[address] , [place] [address] Erythrocyte distribution width Auto Ratio (RBC) 13.2 % Normal 12.1-15.2 [facility] Comment on above: Performed By: #### C BC, DAPHNE, CP, LIP, TSH, HCG ####[address] , [place] [address] Erythrocytes (RBC) 4.86 10*6/uL Normal 4.0-5.2 [facility] Comment on above: Performed By: #### C BC, DAPHNE, CP, LIP, TSH, HCG ####[address] , [place] [address] Hematocrit (HCT) 39.7 % Normal 36-46 [facility] Comment on above: Performed By: #### C BC, DAPHNE, CP, LIP, TSH, HCG ####[address] [place] [address] Hemoglobin mass conc (Bld) 13.2 g/dL Normal 12.0-16.0 [facility] Comment on above: Performed By: #### C BC, DAPHNE, CP, LIP, TSH, HCG ####[address] [place] [address] Lymphocytes 1.60 10*3/uL Normal 1.2-5.2 [facility] Comment on above: Performed By: #### C BC, DAPHNE, CP, LIP, TSH, HCG ####[address] , [facility]83 Lymphocytes/100 leukocytes 13 % Normal [facility] Comment on above: Performed By: #### C BC, DAPHNE, CP, LIP, TSH, HCG ####[address] , [facility]83 MCH 27.2 pg Normal 25-35 [facility] Comment on above: Performed By: #### C BC, DAPHNE, CP, LIP, TSH, HCG ####[address] , [facility]83 MCHC mass conc (RBC) 33.3 g/dL Normal 31-37 [facility] Comment on above: Performed By: #### C BC, DAPHNE, CP, LIP, TSH, HCG ####[address] , [facility]83 MCV 81.7 fL Normal 78-102 [facility] Comment on above: Performed By: #### C BC, DAPHNE, CP, LIP, TSH, HCG ####[address] , [facility]83 Monocytes 0.50 10*3/uL Normal 0.2-0.8 [facility] Comment on above: Performed By: #### C BC, DAPHNE, CP, LIP, TSH, HCG ####[address] , [facility]83 Monocytes/100 leukocytes 4 % Normal [facility] Comment on above: Performed By: #### C BC, DAPHNE, CP, LIP, TSH, HCG ####[address] [place] [address] Neutrophil (Seg) 82 % Normal [facility] Comment on above: Performed By: #### C BC, DAPHNE, CP, LIP, TSH, HCG ####[address] [place] [address] Platelet mean volume (PMV) 8.2 fL Normal 6.0-12.0 [facility] Comment on above: Performed By: #### C BC, DAPHNE, CP, LIP, TSH, HCG ####[address] [place] [address] Platelets 302 10*3/uL Normal 140-450 [facility] Comment on above: Performed By: #### C BC, DAPHNE, CP, LIP, TSH, HCG ####[address] [place] [address] WBC (Leukocytes) 12.2 10*3/uL Normal 4.5-13.5 [facility] Comment on above: Performed By: #### C BC, DAPHNE, CP, LIP, TSH, HCG ####[address] [place] [address] Auto Diff Performed NOT REPORTED Normal [facility] Comment on above: Performed By: #### C BC, DAPHNE, CP, LIP, TSH, HCG ####[address] [place] [address] Erythrocyte morphology NOT REPORTED Normal [facility] Comment on above: Performed By: #### C BC, DAPHNE, CP, LIP, TSH, HCG ####[address] [place] [address] Granulocytes/100 WBC (Bld) NOT REPORTED Normal 0.00-0.30 [facility] Comment on above: Performed By: #### C BC, DAPHNE, CP, LIP, TSH, HCG ####[address] [place] [address] Immature granulocytes #/vol (Bld) NOT REPORTED Normal 0 [facility] Comment on above: Performed By: #### C BC, DAPHNE, CP, LIP, TSH, HCG ####[address] , [place] [address] Platelets NOT REPORTED Normal [facility] Comment on above: Performed By: #### C BC, DAPHNE, CP, LIP, TSH, HCG ####[address] [place] [address] WBC Morphology NOT REPORTED Normal [facility] Comment on above: Performed By: #### C BC, DAPHNE, CP, LIP, TSH, HCG ####[address] [place] [address] CT HEAD WO CONTRASTon 2016 CT [...] by:KRISTY Kiserigned by:Jaime Noble MD09/18/17Final result Normal [facility] Comp Metabolic Profon 2016 (cont.) Normal [facility] Comment on above: Result Comment: Aver age GFR for <20 years old not available.Chronic Kidney Disease: <60 mL/min/1.73sq mKidney failure: <15 mL/min/1.73sq meGFR calculated using average adult body mass. Additional eGFR calculator available at:http://www.[employer]/multiple_crcl_2012.htm Performed By: #### C BC, DAPHNE, CP, LIP, TSH, HCG ####[address] [place] [address] Alanine aminotransferase (ALT) 11 U/L Normal 5-33 [facility] Comment on above: Performed By: #### C BC, DAPHNE, CP, LIP, TSH, HCG ####[address] [place] [address] Albumin 4.1 g/dL Normal 3.5-5.2 [facility] Comment on above: Performed By: #### C BC, DAPHNE, CP, LIP, TSH, HCG ####[address] [place] [address] Albumin/Globulin Ratio 1.1 {ratio} Normal 1.0-2.5 [facility] Comment on above: Performed By: #### C BC, DAPHNE, CP, LIP, TSH, HCG ####[address] [place] [address] Alkaline Phos 87 U/L Normal 35-104 [facility] Comment on above: Performed By: #### C BC, DAPHNE, CP, LIP, TSH, HCG ####[address] [place] [address] Anion gap 11 mmol/L Normal 9-17 [facility] Comment on above: Performed By: #### C BC, DAPHNE, CP, LIP, TSH, HCG ####[address] [place] [address] Aspartate aminotransferase (AST) 13 U/L Normal <32 [facility] Comment on above: Performed By: #### C BC, DAPHNE, CP, LIP, TSH, HCG ####[address] [place] [address] Bilirubin Ql (U) 0.26 mg/dL Low 0.3-1.2 [facility] Comment on above: Performed By: #### C BC, DAPHNE, CP, LIP, TSH, HCG ####[address] [place] [address] BUN/CRE Ratio 10 Normal 9-20 [facility] Comment on above: Performed By: #### C BC, DAPHNE, CP, LIP, TSH, HCG ####[address] [place] [address] Calcium 9.1 mg/dL Normal 8.6-10.4 [facility] Comment on above: Performed By: #### C BC, DAPHNE, CP, LIP, TSH, HCG ####[address] [place] [address] Chloride 101 mmol/L Normal 98-107 [facility] Comment on above: Performed By: #### C BC, DAPHNE, CP, LIP, TSH, HCG ####[address] [place] [address] CO2 27 mmol/L Normal 20-31 [facility] Comment on above: Performed By: #### C BC, DAPHNE, CP, LIP, TSH, HCG ####[address] [place] [address] Creatinine 0.58 mg/dL Normal 0.50-0.90 [facility] Comment on above: Performed By: #### C BC, DAPHNE, CP, LIP, TSH, HCG ####[address] [place] [address] eGFR (non-black) Pediatric GFR requir es additional information. Refer to NKDEP website for Normal >60 [facility] Comment on above: Result Comment: calc ulator. Performed By: #### C BC, DAPHNE, CP, LIP, TSH, HCG ####[address] [place] [address] Glucose mass conc 83 mg/dL Normal 70-99 [facility] Comment on above: Performed By: #### C BC, DAPHNE, CP, LIP, TSH, HCG ####[address] [place] [address] Potassium molar conc 3.7 mmol/L Normal 3.7-5.3 [facility] Comment on above: Performed By: #### C BC, DAPHNE, CP, LIP, TSH, HCG ####[address] [place] [address] Protein 7.8 g/dL Normal 6.4-8.3 [facility] Comment on above: Performed By: #### C BC, DAPHNE, CP, LIP, TSH, HCG ####[address] [place] [address] Sodium 139 mmol/L Normal 135-144 [facility] Comment on above: Performed By: #### C BC, DAPHNE, CP, LIP, TSH, HCG ####[address] [place] [address] Staging: Normal [facility] Comment on above: Result Comment: Stag e 1: Some kidney damage normal GFRStage 2: Mild kidney damage GFR 60-89Stage 3: Moderate kidney damage GFR 30-59Stage 4: Severe kidney damage GFR 15-29Stage 5: Severe kidney damage GFR <15ESRD - chronic treatment by dialysis or transplantPerformed at [address] [place] [address] Performed By: #### C BC, DAPHNE, CP, LIP, TSH, HCG ####[address] [place] [address] Urea nitrogen 6 mg/dL Normal 6-20 [facility] Comment on above: Performed By: #### C BC, DAPHNE, CP, LIP, TSH, HCG ####[address] [place] [address] eGFR (non-black) NOT REPORTED Normal >60 [facility] Comment on above: Performed By: #### C BC, DAPHNE, CP, LIP, TSH, HCG ####[address] [place] [address] Drug Scr, Abuse, Uron 2016 Amphetamine(s),Ur Negative Normal NEG [facility] Comment on above: Performed By: #### C BC, DAPHNE, CP, LIP, TSH, HCG ####[address] [place] [address] Barbiturate(s),Ur Negative Normal NEG [facility] Comment on above: Performed By: #### C BC, DAPHNE, CP, LIP, TSH, HCG ####[address] [place] [address] Base excess Negative Normal NEG [facility] Comment on above: Performed By: #### C BC, DAPHNE, CP, LIP, TSH, HCG ####[address] [place] [address] Benzodiazepine(s) Negative Normal NEG [facility] Comment on above: Performed By: #### C BC, DAPHNE, CP, LIP, TSH, HCG ####[address] [place] [address] Buprenorphrine, Ur Negative Normal [facility] Comment on above: Result Comment: Perf ormed at [address] [place] [address] Performed By: #### C BC, DAPHNE, CP, LIP, TSH, HCG ####[address] [place] [address] Cannabinoid(s),Ur Positive Abnormal NEG [facility] Comment on above: Performed By: #### C BC, DAPHNE, CP, LIP, TSH, HCG ####[address] [place] [address] Methamphetamine, Ur Negative Normal [facility] Comment on above: Performed By: #### C BC, DAPHNE, CP, LIP, TSH, HCG ####[address] [place] [address] Opiate(s), Ur Negative Normal [facility] Comment on above: Performed By: #### C BC, DAPHNE, CP, LIP, TSH, HCG ####[address] [place] [address] Oxycodone, Urine Negative Normal NEG [facility] Comment on above: Performed By: #### C BC, DAPHNE, CP, LIP, TSH, HCG ####[address] [place] [address] Phencyclidine, Ur Negative Normal NEG [facility] Comment on above: Performed By: #### C BC, DAPHNE, CP, LIP, TSH, HCG ####[address] [place] [address] Propoxyphene,Urine Negative Normal NEG [facility] Comment on above: Performed By: #### C BC, DAPHNE, CP, LIP, TSH, HCG ####[address] [place] [address] Urine, methadone presence Negative Normal NEG [facility] Comment on above: Performed By: #### C BC, DAPHNE, CP, LIP, TSH, HCG ####[address] [place] [address] Urine, tricyclic antidepressants Negative Normal NEG [facility] Comment on above: Result Comment: Drug screen results are to be used for medical purposes only. All positive results are unconfirmed. Testing for employment or legal uses should be sent to a reference laboratory for confirmation. Performed By: #### C BC, DAPHNE, CP, LIP, TSH, HCG ####[address] [place] [address] Interpretive Info NOT REPORTED Normal [facility] Comment on above: Performed By: #### C BC, DAPHNE, CP, LIP, TSH, HCG ####[address] [place] [address] MDMA, Urine NOT REPORTED Normal NEG [facility] Comment on above: Performed By: #### C BC, DAPHNE, CP, LIP, TSH, HCG ####[address] [place] [address] ED Provider Noteon 7 HIM IP Note OR Welding Machine Operator Resistance [facility] Flu A/B Ag Detectionon 09-18 Flu A/B Ag Detection Specimen Descriptio n .NASOPHARYNGEAL SWABSpecial Requests NOT REPORTEDDirect Exam Presumptive negative for the presence of Influenza A and Influenza B antigen. PCR confirmation of negative results is recommended, since the antigen present in the specimen may be below the detection limit of the test. Performed at [address] [place] [address] Report Status FINAL 09/18/2017 [facility] Comment on above: Performed By: #### C BC, DAPHNE, CP, LIP, TSH, HCG ####[address] [place] [address] HCG, ,Urineon 09-18 HCG.beta subunit ( test) Ql (U) Negative Normal NEG [facility] Comment on above: Result Comment: Perf ormed at [address] [place] [address] Performed By: #### C BC, DAPHNE, CP, LIP, TSH, HCG ####[address] [place] [address] Mononucleosis Screenon 09-18 Monocytes Negative Normal NEG [facility] Comment on above: Result Comment: Perf ormed at [address] [place] [address] Performed By: #### C BC, DAPHNE, CP, LIP, TSH, HCG ####[address] [place] [address] Strep Gr A Direct Agon 09-18 Rapid strep test Specimen Description .THROATSpecial Requests NOT REPORTEDDirect Exam Rapid Strep A negative. A negative Rapid Group A Strep Screen result does not rule out the possibility of Group A Streptococci in the specimen. A Group A strep DNA test will be performed. Performed at [address] [place] [address] Report Status FINAL 09/18/2017 [facility] Comment on above: Performed By: #### C BC, DAPHNE, CP, LIP, TSH, HCG ####[address] , [place] [address] UA w/Reflex Cultureon 2016 Acetaminophen mass conc Negative Normal NEG [facility] Comment on above: Performed By: #### C BC, DAPHNE, CP, LIP, TSH, HCG ####[address] [place] [address] Bilirubin (direct) Negative Normal NEG [facility] Comment on above: Performed By: #### C BC, DAPHNE, CP, LIP, TSH, HCG ####[address] [place] [address] Hemoglobin mass conc (Bld) Negative Normal [facility] Comment on above: Performed By: #### C BC, DAPHNE, CP, LIP, TSH, HCG ####[address] , [facility]83 Nitrite,Ur Negative Normal [facility] Comment on above: Performed By: #### C BC, DAPHNE, CP, LIP, TSH, HCG ####[address] [place] [address] Turbidity CLEAR Normal CLEAR [facility] Comment on above: Performed By: #### C BC, DAPHNE, CP, LIP, TSH, HCG ####[address] [place] [address] Urine, color YELLOW Normal YEL [facility] Comment on above: Performed By: #### C BC, DAPHNE, CP, LIP, TSH, HCG ####[address] [place] [address] Urine, glucose presence Negative Normal NEG [facility] Comment on above: Performed By: #### C BC, DAPHNE, CP, LIP, TSH, HCG ####[address] [place] [address] Urine, leukocyte esterase presence TRACE Abnormal NEG [facility] Comment on above: Result Comment: Perf ormed at [address] [place] [address] Performed By: #### C BC, DAPHNE, CP, LIP, TSH, HCG ####[address] [place] [address] Urine, pH 8.0 [pH] Normal 5.0-9.0 [facility] Comment on above: Performed By: #### C BC, DAPHNE, CP, LIP, TSH, HCG ####[address] [place] [address] Urine, protein presence Negative Normal NEG [facility] Comment on above: Performed By: #### C BC, DAPHNE, CP, LIP, TSH, HCG ####[address] , [facility]83 Urine, specific gravity 1.015 Normal 1.010-1.020 [facility] Comment on above: Performed By: #### C BC, DAPHNE, CP, LIP, TSH, HCG ####[address] [place] [address] Urobilinogen,Ur Normal Normal NORM [facility] Comment on above: Performed By: #### C BC, DAPHNE, CP, LIP, TSH, HCG ####[address] [place] [address] Comment NOT REPORTED Normal [facility] Comment on above: Performed By: #### C BC, DAPHNE, CP, LIP, TSH, HCG ####[address] [place] [address] Urinalysis,Microon 7 ----- Normal [facility] Comment on above: Performed By: #### C BC, DAPHNE, CP, LIP, TSH, HCG ####[address] [place] [address] Mucus Strands 1+ Abnormal [facility] Comment on above: Performed By: #### C BC, DAPHNE, CP, LIP, TSH, HCG ####[address] [place] [address] Trichomonas PRESENCE NOTED Abnormal [facility] Comment on above: Result Comment: Perf ormed at [address] [place] [address] Performed By: #### C BC, DAPHNE, CP, LIP, TSH, HCG ####[address] [place] [address] Urine WBC's 2 TO 5 Normal 0-5 [facility] Comment on above: Performed By: #### C BC, DAPHNE, CP, LIP, TSH, HCG ####[address] , [facility]83 Urine, bacteria in sediment TRACE Abnormal NONE [facility] Comment on above: Performed By: #### C BC, DAPHNE, CP, LIP, TSH, HCG ####[address] [place] [address] Urine, epithelial cells in sediment 10 TO 20 Normal 0-25 [facility] Comment on above: Performed By: #### C BC, DAPHNE, CP, LIP, TSH, HCG ####[address] , [facility]83 Urine, erythrocytes 0 TO 2 Normal 0-2 [facility] Comment on above: Performed By: #### C BC, DAPHNE, CP, LIP, TSH, HCG ####[address] , [facility]83 Epithelial, Renal NOT REPORTED Normal 0 [facility] Comment on above: Performed By: #### C BC, DAPHNE, CP, LIP, TSH, HCG ####[address] [place] [address] Other Observations NOT REPORTED Normal NREQ [facility] Comment on above: Performed By: #### C BC, DAPHNE, CP, LIP, TSH, HCG ####[address] [place] [address] Urine, amorphous sediment presence in sediment NOT REPORTED Normal NONE [facility] Comment on above: Performed By: #### C BC, DAPHNE, CP, LIP, TSH, HCG ####[address] [place] [address] Urine, casts in sediment NOT REPORTED Normal [facility] Comment on above: Performed By: #### C BC, DAPHNE, CP, LIP, TSH, HCG ####[address] [place] [address] Urine, crystals in sediment NOT REPORTED Normal [facility] Comment on above: Performed By: #### C BC, DAPHNE, CP, LIP, TSH, HCG ####[address] [place] [address] Urine, yeast presence in sediment NOT REPORTED Normal NONE [facility] Comment on above: Performed By: #### C BC, DAPHNE, CP, LIP, TSH, HCG ####[address] [place] [address] CT ABDOMEN PELVIS WO IV CONT Padmini [...] are unremarkable.Final report electronically signed by Sean aMyfield on 07/21/2017 3:47 PMIMPRESSION: DISTENTION, OR DILATATION OF A FLUID-FILLED TERMINAL ILEUM WITHOUT APPARENT WALL THICKENING. COLLAPSED TRANSVERSE COLON, DIFFICULT TO EVALUATE FOR WALL THICKNESS. NO PERICOLIC INFLAMMATORY CHANGES. 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 PCR confirmation of negative results is recommended, since the antigen present in the specimen may be below the detection limit of the test. Performed at [address] [place] [address] [phone] Report Status FINAL 07/21/2017 [facility] Comment on above: Performed By: #### F LUAD ####[address] [place] [address] Strep Gr A Direct Agon 07-21 Strep Gr A Direct Ag Specimen Descriptio n .THROATSpecial Requests NOT REPORTEDDirect Exam POSITIVE for Group A Streptococci Performed at [address] [place] [address] [phone] Report Status FINAL 07/21/2017 [facility] Comment on above: Performed By: #### S GPA ####[address] [place] [address] Urinalysis w/ Microon 2016 ----- Normal [facility] Comment on above: Performed By: #### U AMIC ####[address] [place] [address] Acetaminophen mass conc Negative Normal NEG [facility] Comment on above: Performed By: #### U AMIC ####[address] [place] [address] Bilirubin (direct) Negative Normal NEG [facility] Comment on above: Performed By: #### U AMIC ####[address] [place] [address] Hemoglobin mass conc (Bld) Negative Normal NEG [facility] Comment on above: Performed By: #### U AMIC ####[address] [place] [address] Mucus Strands 3+ Abnormal NONE [facility] Comment on above: Result Comment: Perf ormed at [address] [place] [address] Performed By: #### U AMIC ####[address] [place] [address] Nitrite,Ur Negative Normal NEG [facility] Comment on above: Performed By: #### U AMIC ####[address] [place] [address] Turbidity CLEAR Normal CLEAR [facility] Comment on above: Performed By: #### U AMIC ####[address] [place] [address] Urine WBC's 0 TO 2 Normal 0-5 [facility] Comment on above: Performed By: #### U AMIC ####[address] [place] [address] Urine, bacteria in sediment 1+ Abnormal NONE [facility] Comment on above: Performed By: #### U AMIC ####[address] [place] [address] Urine, color YELLOW Normal YEL [facility] Comment on above: Performed By: #### U AMIC ####[address] [place] [address] Urine, epithelial cells in sediment 5 TO 10 Normal 0-25 [facility] Comment on above: Performed By: #### U AMIC ####[address] [place] [address] Urine, erythrocytes 0 TO 2 Normal 0-2 [facility] Comment on above: Performed By: #### U AMIC ####[address] [place] [address] Urine, glucose presence Negative Normal NEG [facility] Comment on above: Performed By: #### U AMIC ####[address] [place] [address] Urine, leukocyte esterase presence Negative Normal NEG [facility] Comment on above: Performed By: #### U AMIC ####[address] [place] [address] Urine, pH 6.0 [pH] Normal 5.0-9.0 [facility] Comment on above: Performed By: #### U AMIC ####[address] [place] [address] Urine, protein presence TRACE Abnormal NEG [facility] Comment on above: Performed By: #### U AMIC ####[address] [place] [address] Urine, specific gravity 1.025 High 1.010-1.020 [facility] Comment on above: Performed By: #### U AMIC ####[address] [place] [address] Urobilinogen,Ur Normal Normal NORM [facility] Comment on above: Performed By: #### U AMIC ####[address] [place] [address] Comment NOT REPORTED Normal [facility] Comment on above: Performed By: #### U AMIC ####[address] [place] [address] Epithelial, Renal NOT REPORTED Normal 0 [facility] Comment on above: Performed By: #### U AMIC ####[address] [place] [address] Other Observations NOT REPORTED Normal NREQ [facility] Comment on above: Performed By: #### U AMIC ####[address] [place] [address] Trichomonas NOT REPORTED Normal NONE [facility] Comment on above: Performed By: #### U AMIC ####[address] [place] [address] Urine, amorphous sediment presence in sediment NOT REPORTED Normal NONE [facility] Comment on above: Performed By: #### U AMIC ####[address] [place] [address] Urine, casts in sediment NOT REPORTED Normal [facility] Comment on above: Performed By: #### U AMIC ####[address] [place] [address] Urine, crystals in sediment NOT REPORTED Normal NONE [facility] Comment on above: Performed By: #### U AMIC ####[address] [place] [address] Urine, yeast presence in sediment NOT REPORTED Normal NONE [facility] Comment on above: Performed By: #### U AMIC ####[address] [place] [address] Amylaseon 07-18-2017 Amylase 44 U/L Normal 28-100 [facility] Comment on above: Result Comment: Perf ormed at [address] [place] [address] Performed By: #### C BC, DAPHNE, CP, LIP, TSH, HCG ####[address] [place] [address] CBCon 07-18-2017 Erythrocyte distribution width Auto Ratio (RBC) 14.5 % Normal 12.1-15.2 [facility] Comment on above: Performed By: #### C BC, DAPHNE, CP, LIP, TSH, HCG ####[address] , [facility]83 Erythrocytes (RBC) 4.79 10*6/uL Normal 4.0-5.2 [facility] Comment on above: Performed By: #### C BC, DAPHNE, CP, LIP, TSH, HCG ####[address] , [facility]83 Hematocrit (HCT) 39.1 % Normal 36-46 [facility] Comment on above: Performed By: #### C BC, DAPHNE, CP, LIP, TSH, HCG ####[address] [place] [address] Hemoglobin mass conc (Bld) 12.9 g/dL Normal 12.0-16.0 [facility] Comment on above: Performed By: #### C BC, DAPHNE, CP, LIP, TSH, HCG ####[address] , [facility]83 MCH 26.9 pg Normal 25-35 [facility] Comment on above: Performed By: #### C BC, DAPHNE, CP, LIP, TSH, HCG ####[address] [place] [address] MCHC mass conc (RBC) 32.9 g/dL Normal 31-37 [facility] Comment on above: Performed By: #### C BC, DAPHNE, CP, LIP, TSH, HCG ####[address] [place] [address] MCV 81.6 fL Normal 78-102 [facility] Comment on above: Performed By: #### C BC, DAPHNE, CP, LIP, TSH, HCG ####[address] [place] [address] Platelet mean volume (PMV) 8.3 fL Normal 6.0-12.0 [facility] Comment on above: Result Comment: Perf ormed at [address] [place] [address] Performed By: #### C BC, DAPHNE, CP, LIP, TSH, HCG ####[address] [place] [address] Platelets 268 10*3/uL Normal 140-450 [facility] Comment on above: Performed By: #### C BC, DAPHNE, CP, LIP, TSH, HCG ####[address] , [facility]83 WBC (Leukocytes) 7.7 10*3/uL Normal 4.5-13.5 [facility] Comment on above: Performed By: #### C BC, DAPHNE, CP, LIP, TSH, HCG ####[address] [place] [address] Comp Metabolic Profon 2016 (cont.) Normal [facility] Comment on above: Result Comment: Aver age GFR for <20 years old not available.Chronic Kidney Disease: <60 mL/min/1.73sq mKidney failure: <15 mL/min/1.73sq meGFR calculated using average adult body mass. Additional eGFR calculator available at:http://www.[employer].com/multiple_crcl_2012.htm Performed By: #### C BC, DAPHNE, CP, LIP, TSH, HCG ####[address] [place] [address] Alanine aminotransferase (ALT) 20 U/L Normal 5-33 [facility] Comment on above: Performed By: #### C BC, DAPHNE, CP, LIP, TSH, HCG ####[address] , [place] [address] Albumin 4.1 g/dL Normal 3.5-5.2 [facility] Comment on above: Performed By: #### C BC, DAPHNE, CP, LIP, TSH, HCG ####[address] , [place] [address] Albumin/Globulin Ratio 1.3 {ratio} Normal 1.0-2.5 [facility] Comment on above: Performed By: #### C BC, DAPHNE, CP, LIP, TSH, HCG ####[address] , [facility]83 Alkaline Phos 71 U/L Normal 35-104 [facility] Comment on above: Performed By: #### C BC, DAPHNE, CP, LIP, TSH, HCG ####[address] , [place] [address] Anion gap 12 mmol/L Normal 9-17 [facility] Comment on above: Performed By: #### C BC, DAPHNE, CP, LIP, TSH, HCG ####[address] , [place] [address] Aspartate aminotransferase (AST) 20 U/L Normal <32 [facility] Comment on above: Performed By: #### C BC, DAPHNE, CP, LIP, TSH, HCG ####[address] , [place] [address] Bilirubin Ql (U) 0.43 mg/dL Normal 0.3-1.2 [facility] Comment on above: Performed By: #### C BC, DAPHNE, CP, LIP, TSH, HCG ####[address] , [place] [address] BUN/CRE Ratio 15 Normal 9-20 [facility] Comment on above: Performed By: #### C BC, DAPHNE, CP, LIP, TSH, HCG ####[address] [place] [address] Calcium 9.1 mg/dL Normal 8.6-10.4 [facility] Comment on above: Performed By: #### C BC, DAPHNE, CP, LIP, TSH, HCG ####[address] [place] [address] Chloride 106 mmol/L Normal 98-107 [facility] Comment on above: Performed By: #### C BC, DAPHNE, CP, LIP, TSH, HCG ####[address] [place] [address] CO2 24 mmol/L Normal 20-31 [facility] Comment on above: Performed By: #### C BC, DAPHNE, CP, LIP, TSH, HCG ####[address] [place] [address] Creatinine 0.53 mg/dL Normal 0.50-0.90 [facility] Comment on above: Performed By: #### C BC, DAPHNE, CP, LIP, TSH, HCG ####[address] , [place] [address] eGFR (non-black) Pediatric GFR requir es additional information. Refer to NKDEP website for Normal >60 [facility] Comment on above: Result Comment: calc ulator. Performed By: #### C BC, DAPHNE, CP, LIP, TSH, HCG ####[address] [place] [address] Glucose mass conc 95 mg/dL Normal 70-99 [facility] Comment on above: Performed By: #### C BC, DAPHNE, CP, LIP, TSH, HCG ####[address] [place] [address] Potassium molar conc 4.3 mmol/L Normal 3.7-5.3 [facility] Comment on above: Performed By: #### C BC, DAPHNE, CP, LIP, TSH, HCG ####[address] [place] [address] Protein 7.3 g/dL Normal 6.4-8.3 [facility] Comment on above: Performed By: #### C BC, DAPHNE, CP, LIP, TSH, HCG ####[address] [place] [address] Sodium 142 mmol/L Normal 135-144 [facility] Comment on above: Performed By: #### C BC, DAPHNE, CP, LIP, TSH, HCG ####[address] [place] [address] Staging: Normal [facility] Comment on above: Result Comment: Stag e 1: Some kidney damage normal GFRStage 2: Mild kidney damage GFR 60-89Stage 3: Moderate kidney damage GFR 30-59Stage 4: Severe kidney damage GFR 15-29Stage 5: Severe kidney damage GFR <15ESRD - chronic treatment by dialysis or transplantPerformed at [address] [place] [address] Performed By: #### C BC, DAPHNE, CP, LIP, TSH, HCG ####[address] [place] [address] Urea nitrogen 8 mg/dL Normal 6-20 [facility] Comment on above: Performed By: #### C BC, DAPHNE, CP, LIP, TSH, HCG ####[address] [place] [address] eGFR (non-black) NOT REPORTED Normal >60 [facility] Comment on above: Performed By: #### C BC, DAPHNE, CP, LIP, TSH, HCG ####[address] [place] [address] HCG Screen, Bloodon 07-18-20 17 HCG Qn Negative Normal NEG [facility] Comment on above: Result Comment: Perf ormed at [address] [place] [address] Performed By: #### C BC, DAPHNE, CP, LIP, TSH, HCG ####[address] [address] Lipaseon 07-18-2017 Lipase 31 U/L Normal 13-60 [facility] Comment on above: Result Comment: Perf ormed at [address] [place] [address] Performed By: #### C BC, DAPHNE, CP, LIP, TSH, HCG ####[address] [place] [address] Thyroid Stim. Horm.on 2016 Thyroid stimulating hormone (TSH) 1.32 m[IU]/L Normal 0.30-5.00 [facility] Comment on above: Result Comment: Perf ormed at [address] [place] [address] Performed By: #### C BC, DAPHNE, CP, LIP, TSH, HCG ####[address] [place] [address] XR ACUTE ABD SERIES CHEST 1 VWon [...] by:KRISTY Inmanigned by:Xochilt Louie MD07/18/17Final result Normal [facility] Vital Signs Date Time Vital Sign Value Performing Clinician Facility 04-23-2023 10:00-0400 Body height 162.56 cm [facility] [employer] [facility] [facility] Other [facility] Other 04-23-2023 10:00-0400 Body mass index (BMI) [Ratio] 38.27 kg/m2 Imad Asaad Other [facility] Other 04-23-2023 10:00-0400 Body weight 101.15 kg Imad Asaad Other [facility] Other 04-23-2023 10:00-0400 Diastolic blood pressure 62 mm[Hg] Imad Asaad Other [facility] Other 04-23-2023 10:00-0400 Systolic blood pressure 105 mm[Hg] Imad Asaad Other [facility] Other 02-05-2023 10:00-0400 Body height 162.56 cm Imad Asaad Other [facility] Other 02-05-2023 10:00-0400 Body mass index (BMI) [Ratio] 40.85 kg/m2 Imad Asaad Other [facility] Other 02-05-2023 10:00-0400 Body weight 107.96 kg Imad Asaad Other [facility] Other 02-05-2023 10:00-0400 Diastolic blood pressure 61 mm[Hg] Imad Asaad Other [facility] Other 02-05-2023 10:00-0400 Systolic blood pressure 104 mm[Hg] Imad Asaad Other [facility] Other Encounters Encounter Date Encounter Type Care Provider Facility Start: 07-19-2024 End: 07-19-2024 ambulatory HAMIDA YOSSI Not Available Start: 05-16-2024 End: 05-16-2024 ambulatory HAMIDA YOSSI Not Available Start: 03-17-2024 End: 03-17-2024 ambulatory HAMIDA SY Not Available Start: 04-23-2023 End: 04-23-2023 ambulatory Imad Asaad Other [facility] Other Start: 04-23-2023 Office outpatient visit 15 minutes Imad Asaad [facility] Start: 03-16-2023 End: 03-16-[address] HAMIDA SY . Facility:[facility] Start: 02-24-2023 End: 02-24-2023 ambulatory Imad Asaad Facility:[facility] Start: 02-24-2023 End: 02-24-2023 ambulatory DO Cathryn Rumschlag Work Phone: [facility] Work Phone: Start: 02-24-2023 End: 02-24-2023 Patient encounter procedure DO Cathryn Rumschlag Work Phone: [facility] Work Phone: Start: 02-19-2023 End: 02-19-2023 ambulatory Cathryn Rumschlag Facility:[facility] Start: 02-19-2023 End: 02-19-2023 Patient encounter procedure DO Cathryn Rumschlag Work Phone: [facility]Ul[facility] [place] Work Phone: Start: 02-05-2023 End: 02-05-2023 ambulatory Imad Asaad Other [facility] Other Start: 02-05-2023 Office outpatient ne w [...] Evaluation and management of inpatient KALIN MCKEON [facility] Start: 11-14-2017 End: 11-15-2017 Emergency department patient visit BEST BERUMEN [facility] Start: 09-18-2017 End: 09-18-2017 Emergency department patient visit ABDIFATAH Sellers [facility] Start: 07-21-2017 End: 07-21-2017 Emergency department patient visit LILA GOMEZ [facility] Start: 07-18-2017 End: 07-19-2017 Ambulatory ABDIFATAH [facility]ellers [facility] Procedures Date Procedure Procedure Detail Performing Clinician Start: 02-24-2023 Ultrasound elastogra phy of liver DO Cathryn [facility] Work Phone: Start: 02-19-2023 Ultrasonography of liver DO Cathryn [facility] Work Phone: Start: 11-17-2017 DISCHARGE PATIENT FRANKY ALFAROPTA Start: 11-16-2017 CBC WITH AUTO DIFFERENTIAL KALIN MCKEON Start: 11-16-2017 COMPREHENSIVE METABO LIC PANEL KALIN ALFAROPTA Start: 11-15-2017 DIET GENERAL KALIN WINE MANAGER Start: 11-15-2017 FULL CODE KALIN WINE MANAGER Start: 11-15-2017 IP CONSULT TO HISTOR Y AND PHYSICAL KALIN MCKEON Start: 11-15-2017 PATIENT STATUS (DIRECT) KALIN MCKEON Start: 11-15-2017 VITAL SIGNS KALIN WINE MANAGER Start: 11-14-2017 , URINE ABDIFATAH CHANDU Start: 11-14-2017 URINE DRUG SCREEN REAGA N CHANDU Start: 11-14-2017 CBC WITH AUTO DIFFERENTIAL ABDIFATAH SCHOFIELD Start: 11-14-2017 BASIC METABOLIC PANEL R PETRONA CHANDU Start: 11-14-2017 TOX SCR, BLD, ED ABDIFATAH SCHOFIELD Start: 11-14-2017 ED NURSING COMMUNICATION ABDIFATAH SCHOFIELD Start: 11-14-2017 SUICIDE PRECAUTIONS JORGITO KATI CHANDU Start: 09-18-2017 STREP SCREEN GROUP A THROAT ABDIFATAH SCHOFIELD Start: 09-18-2017 STREP A DNA PROBE, AMPLIFICATION ABDIFATAH BRISTOL Start: 09-18-2017 Ct head/brain w/o co ntrast material ABDIFATAH BRISTOL Start: 09-18-2017 CBC WITH AUTO DIFFERENTIAL ABDIFATAH [...] Date Care Activity Detail Author Start: 02-24-2023 [facility] Payers Date Payer Category Payer Medicaid [id number] 1998 Unknown [id number] 1998 Unknown [id number] 1998 Unknown [id number] 1998 Unknown [id number] 2.16.84 [id number] 1998 Unknown [id number] 2.16.84 0.1.746692.3.579.2.593 1998 Unknown [id number] 2.16.84 0.1.303408.3.579.2.593 1998 Unknown [id number] 2.16.84 0.1.872552.3.579.2.593 1998 Unknown [id number] 2.16.84 0.1.207528.3.579.2.593 1998 Unknown [id number] 2.16.84 0.1.536512.3.579.2.1259 1998 Unknown [id number] 2.16.84 0.1.331328.3.579.2.1259 1998 Unknown [id number] 2.16.84 [id number] 1959 Self-pay [id number] 1959 Unknown [id number] 1959 Unknown [id number] Unknown [id number] 2.16.8 [id number] Unknown [id number] 2.16.8 40.1.368081.3.579.2.531 Social History Date Type Detail Facility Unknown if ever smoked [facility] Other Sex Assigned At Sex Assigned At Bir th [facility] Other Start: 12-16-2020 Tobacco smoking status ORIS Ex-smoker (finding) [facility] Start: 2000 Sex Assigned At Female F [facility] Goals Date Patient Goal Desired Activity /State Evaluation note 04-23-2023 Note Date & Type Note Facility 04-23-2023 Evaluation note Encounter Date Diagnosis Assessment Notes Apr, Hepatitis C (ICD-10 - B19.20) Apr, Fatty liver (ICD-10 - K76.0) FATTY LIVER WAS FOUND ON FIBROSCAN. PATIENT WAS EDUCATED ON WEIGHT LOSS & LIFESTYLE CHANGES. FOLLOW UP NEEDED . [facility] Other Evaluation note 02-05-2023 Note Date & Type Note Facility 02-05-2023 Evaluation note Encounter Date Diagnosis Assessment Notes Jan, Hepatitis C (ICD-10 - B19.20) Labs, ultrasound, and fibroscan as indicated above. Start approval process for [employer]. [facility] Other Evaluation note Note Date & Type Note Facility Evaluation note No assessment information availa [facility] Work Phone: History general Narrative - Reported Note Date & Type Note Facility History general Narrative - Reported Type Medical History pre diabetes Medical History anxiety/depression Medical History herpes [facility] Other History general Narrative - Reported Note Date & Type Note Facility History general Narrative - Reported Type Medical History pre diabetes Medical History anxiety/depression Medical History herpes Surgical History NONE Hospitalization History [facility] OTHER THAN [facility] Other Summary Purpose Family History No Family [...] and content) DATE CREATED AUTHOR 05/18/2018 [facility] DATE CREATED AUTHOR AUTHOR'S ORGANIZ ATION 05/18/2018 [facility] DATE CREATED AUTHOR AUTHOR'S ORGANIZ ATION 03/07/2023 [facility] DATE CREATED AUTHOR AUTHOR'S ORGANIZ ATION 03/24/2023 [facility] DATE CREATED AUTHOR AUTHOR'S ORGANIZ ATION 07/20/2024 [facility] EPIC REASON FOR VISIT (unrecogniz ed section and content) PATIENT IS HERE AT [facility] CPATIENT IS HERE FOR FOLLOW UP US/FIBROSCAN/AND LABS Care Teams (unrecognized sec tion and content) Team Status: Active Member Role Status Dates Cathryn Banks , DO Primary Care Provider Active Team Status: Inactive Member Role Status Dates Alexis Rios MD Attending Provider Active Cathryn Banks , DO Primary Care Provider Active FOR RECORDS [...] BE BASED ON THE PRIMARY CLINICAL RECORDS. [facility] [employer] provides no warranty or guarantee of the accuracy or completeness of information in this document.
[2024-10-14 13:28] LABS: HCG Quantitative <1 mIU/mL
== END 2024-10-14 12:27 | disposition home or self-care (01) ==
LOC: LAB 12:28
PROVIDERS: Visit Provider Obstetrics & Gynecology
DX: Z32.01 Encounter for pregnancy test, result positive (principal); N92.6 Irregular menstruation, unspecified
CPT/HCPCS: 36415; 84702

== ENCOUNTER 2025-03-21 12:59 | Outpatient (REF) | payer OTHER, SELFPAY ==
[2025-03-23 11:13] LABS: Age Gdln ACOG Testing Note (.); IGP, rfx Aptima HPV ASCU Note (.)
== END 2025-03-21 13:00 | disposition home or self-care (01) ==
LOC: LAB 12:59
PROVIDERS: Visit Provider Obstetrics & Gynecology
DX: Z01.419 Encounter for gynecological examination (general) (routine) without abnormal findings (principal)
CPT/HCPCS: 88175